=== PATIENT | female | born 1950 | race Caucasian/White ===

== ENCOUNTER → 2017-01-09 | Outpatient (CLI) | payer MEDICARE ==
[~2017-01-09] MED LIST: CIPR250T30 PO
--- NOTE | 2017-01-09 10:07 | KCIC ---
MRI Lumbar Spine without contrast History: Lumbar radiculopathy, intermittent radiculopathy, chronic back pain Technique: Multiplanar, multi sequential noncontrast MR imaging was performed of the lumbar spine. Contrast: None Comparison: None Findings: Lumbar vertebral body stature is preserved. There is mild grade 1 anterior spondylolisthesis at L4-5. There is negligible posterior subluxation L1 relative to L2 and L5 relative to S1. There is moderate to severe degenerative disc disease at L5-S1, mild degenerative disc disease at L2-3 and L4-5, mild disc desiccation L1-2 and L3-4. There is no significant marrow edema. There is mild lumbar dextroscoliosis. Conus terminates at L1. Incidental note is made of retroaortic left renal vein. L1-L2: There is negligible disc osteophyte complex and bulge. Spinal canal and neural foramina are adequate. L2-L3: There is minimal disc osteophyte complex and bulge. There is mild facet hypertrophic change and buckling of the ligamentum flavum. Spinal canal and neural foramina are adequate. L3-L4: There is mild facet degenerative change and buckling of the ligamentum flavum. Neural foramina and spinal canal are adequate. L4-L5: There is moderate facet hypertrophic change and mild buckling of the ligamentum flavum. Neural foramina are adequate. There is very mild narrowing of the far right lateral recess. L5-S1: There is mild facet degenerative change. There is minimal disc osteophyte complex. Spinal canal and neural foramina are adequate. Disc osteophyte complex is near the proximal extraforaminal left L5 nerve root without displacement. Impression: 1. There is grade 1 anterior spondylolisthesis at L4-5 at which there is facet degenerative change, negligible posterior subluxation L1 relative to L2 and L5 relative to S1. 2. There is degenerative disc disease greatest at L5-S1. 3. There is no significant lumbar spinal stenosis, very mild narrowing of the far right lateral recess L4-5. 4. Incidental note is made of retroaortic left renal vein. Electronically signed by: Rivas Wisdom MD (01/09/2017 10:03 AM) [id number]
== END | disposition home or self-care (01) ==
LOC: KCIC MRI 09:16
PROVIDERS: ATTEND Pain Medicine Pain Medicine
DX: M51.17 Intervertebral disc disorders with radiculopathy, lumbosacral region (principal); M43.16 Spondylolisthesis, lumbar region
CPT/HCPCS: 72148

== ENCOUNTER 2017-01-12 17:55 | Emergency (ER) | payer MEDICARE ==
[~2017-01-12] VITALS: Ht 160 cm; Wt 104.3 kg
[2017-01-12] MEDS ORDERED: fentaNYL PF VIAL 100 MCG/2 ML VIAL IV ONE (19:00)
[2017-01-12] MEDS ORDERED: fentaNYL PF VIAL 100 MCG/2 ML VIAL IV PRN (19:00)
[2017-01-12 19:06] LABS: BASO # 0.1 x10^3/uL (0.0-0.2); BASO % 1 % (0-3); EOS % 1 % (0-3); HEMATOCRIT 47.5 % (36.0-47.0); HEMOGLOBIN 16.5 g/dL (12.0-15.5); LYMPH # 2.2 x10^3/uL (1.0-4.8); LYMPH % 23 % (24-48); MEAN CORPUSCULAR HEMOGLOBIN 30 pg (25-35); MEAN CORPUSCULAR HGB CONC 35 g/dL (31-37); MEAN CORPUSCULAR VOLUME 87 fL (79-100); MONO % 7 % (0-9); NEUT % 69 % (31-73); PLATELET COUNT 312 x10^3/uL (140-400); RED BLOOD COUNT 5.46 x10^6/uL (3.50-5.40); RED CELL DISTRIBUTION WIDTH 13.5 % (11.5-14.5); WHITE BLOOD COUNT 9.5 x10^3/uL (4.0-11.0)
[2017-01-12 19:08] LABS: BILIRUBIN,URINE NEGATIVE (NEG); GLUCOSE,URINE 250 mg/dL (NEG); NITRITE,URINE NEGATIVE (NEG); PROTEIN,URINE 100 mg/dL (NEG-TRACE)
[2017-01-12 19:18] LABS: CALCIUM 9.4 mg/dL (8.5-10.1); CREATININE 0.8 mg/dL (0.6-1.0); GFR 71.3; POTASSIUM 3.6 mmol/L (3.5-5.1)
[2017-01-12 19:20] LABS: BACTERIA,URINE MANY /HPF (0-FEW); RBC,URINE >40 /HPF (0-2); WBC,URINE >40 /HPF (0-4)
[2017-01-12 19:21] LABS: SQUAMOUS EPITHELIAL CELL,UR FEW /LPF
[2017-01-12 19:25] LABS: ALBUMIN 3.6 g/dL (3.4-5.0); ALBUMIN/GLOBULIN RATIO 0.9 (1.0-1.7); TOTAL BILIRUBIN 0.6 mg/dL (0.2-1.0); TOTAL PROTEIN 7.4 g/dL (6.4-8.2)
[2017-01-12] MEDS ORDERED: CIPR250T30 PO (20:08)
--- NOTE | 2017-01-12 20:08 | PHYS DOC ---
Past Medical History Past Medical History: Diabetes-Type II, Fibromyalgia, GERD, High Cholesterol, Hypertension, Hypothyroid Past Surgical History: Cholecystectomy Additional Past Surgical Histo: R WRIST, BX ELBOW, R KNEE, HERNIA Alcohol Use: None Drug Use: None Adult General Chief Complaint Chief Complaint: ABDOMINAL PAIN HPI HPI Patient is a 66 year old female who presents ambulatory to the ED complaining of blood in her urine that started yesterday and lower abdominal pain and low back pain that started today. The pain is worse on her right lower abdomen and back. She does not have any pain in her mid back/CVA area. She denies nausea or vomiting. Denies fever or chills. Denies dysuria. She's never had blood in her urine before. She has had a kidney infection a couple of times in the past but not frequently. Denies history of kidney stones. Patient has diabetes, takes metformin. Hypertension, takes triamterene/ hydrochlorothiazide. Takes pravastatin for cholesterol. She has fibromyalgia and takes gabapentin and oxycodone 10 mg 3-4 times daily. She takes it every day. PCP Dr. Ott Review of Systems Review of Systems Constitutional: Denies fever or chills [] HENT: Denies nasal congestion or sore throat [] Respiratory: Denies cough or shortness of breath [] Cardiovascular: Denies chest pain GI: Denies nausea, vomiting, bloody stools or diarrhea [] : As in history of present illness Musculoskeletal: She has chronic fibromyalgia pain but nothing acute today Integument: Denies rash or skin lesions [] Neurologic: Denies headache, focal weakness or sensory changes [] All other systems were reviewed and found to be within normal limits, except as documented in this note. Current Medications Current Medications Current Medications Medications (Trade) Dose Ordered Sig/Vanda Start Time Stop Time Status Last Admin Dose Admin Ciprofloxacin (Cipro) 500 mg 1X ONCE 01/12/17 20:30 01/12/17 20:31 Fentanyl Citrate (Fentanyl 2ml Vial) 100 mcg 1X ONCE 01/12/17 19:00 01/12/17 19:01 DC 01/12/17 18:55 100 MCG Allergies Allergies Allergies Coded Allergies Type Severity Reaction Last Updated Verified No Known Drug Allergies 01/12/17 No Physical Exam Physical Exam Constitutional: Well developed, well nourished, no acute distress, non-toxic appearance. [] HENT: Normocephalic, atraumatic, bilateral external ears normal, oropharynx moist, no oral exudates, nose normal. [] Eyes: PERRLA, EOMI, conjunctiva normal, no discharge. [] Neck: Normal range of motion, no tenderness, supple, no stridor. [] Cardiovascular:Heart rate regular rhythm, no murmur [] Lungs & Thorax: Bilateral breath sounds clear to auscultation [] Abdomen: Bowel sounds normal, soft, no tenderness, no masses, no pulsatile masses. [] Skin: Warm, dry, no erythema, no rash. [] Back: No tenderness, no CVA tenderness. [] Extremities: No tenderness, no cyanosis, no clubbing, ROM intact, no edema. [] Neurologic: Alert and oriented X 3, normal motor function, normal sensory function, no focal deficits noted. [] Psychologic: Affect normal, judgement normal, mood normal. [] Current Patient Data Vital Signs Vital Signs Date Time Temp Pulse Resp B/P (MAP) Pulse Ox O2 Delivery O2 Flow Rate FiO2 01/12/17 18:55 Room Air 01/12/17 18:07 97.5 81 20 184/94 (124) 96 97.5 Lab Values Laboratory Tests Test 01/12/17 18:15 White Blood Count 9.5 x10^3/uL (4.0-11.0) Red Blood Count 5.46 x10^6/uL (3.50-5.40) H Hemoglobin 16.5 g/dL (12.0-15.5) H Hematocrit 47.5 % (36.0-47.0) H Mean Corpuscular Volume 87 fL (79-100) Mean Corpuscular Hemoglobin 30 pg (25-35) Mean Corpuscular Hemoglobin Concent 35 g/dL (31-37) Red Cell Distribution Width 13.5 % (11.5-14.5) Platelet Count 312 x10^3/uL (140-400) Neutrophils (%) (Auto) 69 % (31-73) Lymphocytes (%) (Auto) 23 % (24-48) L Monocytes (%) (Auto) 7 % (0-9) Eosinophils (%) (Auto) 1 % (0-3) Basophils (%) (Auto) 1 % (0-3) Neutrophils # (Auto) 6.6 x10^3uL (1.8-7.7) Lymphocytes # (Auto) 2.2 x10^3/uL (1.0-4.8) Monocytes # (Auto) 0.7 x10^3/uL (0.0-1.1) Eosinophils # (Auto) 0.1 x10^3/uL (0.0-0.7) Basophils # (Auto) 0.1 x10^3/uL (0.0-0.2) Urine Collection Type Unknown Urine Color Red Urine Clarity Cloudy Urine pH 7.0 Urine Specific Kopperl 1.015 Urine Protein 100 mg/dL (NEG-TRACE) Urine Glucose (UA) 250 mg/dL (NEG) Urine Ketones (Stick) Trace mg/dL (NEG) Urine Blood Large (NEG) Urine Nitrite Negative (NEG) Urine Bilirubin Negative (NEG) Urine Urobilinogen Dipstick 1.0 mg/dL (0.2 mg/dL) Urine Leukocyte Esterase Moderate (NEG) Urine RBC >40 /HPF (0-2) Urine WBC >40 /HPF (0-4) Urine Squamous Epithelial Cells Few /LPF Urine Bacteria Many /HPF (0-FEW) Urine Mucus Slight /LPF Sodium Level 135 mmol/L (136-145) L Potassium Level 3.6 mmol/L (3.5-5.1) Chloride Level 97 mmol/L (98-107) L Carbon Dioxide Level 31 mmol/L (21-32) Anion Gap 7 (6-14) Blood Urea Nitrogen 14 mg/dL (7-20) Creatinine 0.8 mg/dL (0.6-1.0) Estimated GFR (Cockcroft-Gault) 71.3 BUN/Creatinine Ratio 18 (6-20) Glucose Level 202 mg/dL (70-99) H Calcium Level 9.4 mg/dL (8.5-10.1) Total Bilirubin 0.6 mg/dL (0.2-1.0) Aspartate Amino Transferase (AST) 16 U/L (15-37) Alanine Aminotransferase (ALT) 20 U/L (14-59) Alkaline Phosphatase 119 U/L (46-116) H Total Protein 7.4 g/dL (6.4-8.2) Albumin 3.6 g/dL (3.4-5.0) Albumin/Globulin Ratio 0.9 (1.0-1.7) L Lipase 62 U/L (73-393) L Laboratory Tests 01/12/17 18:15 Laboratory Tests 01/12/17 18:15 EKG EKG [] Radiology/Procedures Radiology/Procedures [] Course & Med Decision Making Course & Med Decision Making Pertinent Labs and Imaging studies reviewed. (See chart for details) 66-year-old female who is nontoxic, denies fever or chills, afebrile, no nausea or vomiting, complains of blood in her urine. Urinalysis positive for infection. Culture was ordered. Labs are unremarkable for acute findings. I discussed admission versus discharge with the patient. She favors discharge, she is comfortable with discharge instructions to return for vomiting or fever/ chills. We will start her on Cipro. See instructions for plan. [] Dragon Disclaimer Dragon Disclaimer This electronic medical record was generated, in whole or in part, using a voice recognition dictation system. Departure Departure Impression: Primary Impression: UTI (urinary tract infection) Additional Impression: Hematuria due to acute cystitis Disposition: HOME, SELF-CARE Condition: STABLE Referrals: HONEY OTT MD (PCP) Patient Instructions: Urinary Tract Infection, Child Additional Instructions: Rest, fluids, take antibiotics every 12 hours. As we discussed, if you feel worse, if you have chills, vomiting, return to emergency, you may have to be admitted to the hospital. Scripts Ciprofloxacin Hcl (CIPRO) 250 Mg Tablet 1 TAB PO BID, #20 TAB Prov: ARMEN CORNEJO MD 01/12/17 Problem Qualifiers ARMEN CORNEJO MD Jan 12, 2017 20:08
[2017-01-12 20:23] VITALS: BP 160/77
[2017-01-12] MEDS ORDERED: CIPROFLOXACIN HCL 250 MG TABLET. PO ONE (20:30)
--- NOTE | 2017-01-13 07:30 | EKG ---
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
== END 2017-01-12 20:23 | disposition home or self-care (01) ==
LOC: ER 17:55
DX: N30.01 Acute cystitis with hematuria (principal); E03.9 Hypothyroidism, unspecified; E11.9 Type 2 diabetes mellitus without complications; E78.00 Pure hypercholesterolemia, unspecified; I10 Essential (primary) hypertension; K21.9 Gastro-esophageal reflux disease without esophagitis; M79.7 Fibromyalgia; Z90.49 Acquired absence of other specified parts of digestive tract
CPT/HCPCS: 36415; 80053; 81001; 83690; 85025; 87086; 87186; 93005; 96374; 96376; 99285; J3010

== ENCOUNTER 2018-04-28 22:57 | Inpatient (IN) | payer MEDICARE ==
[~2018-04-28] VITALS: Ht 160 cm; Wt 117.0 kg
[2018-04-28] MEDS ORDERED: IV NORMAL SALINE 1000ML BAG 1,000 ML IV ONE (23:15)
[2018-04-28] MEDS ORDERED: MIDAZOLAM HCL/PF 5 MG/5 ML VIAL. NS ONE (23:15)
--- NOTE | 2018-04-28 23:19 | PHYS DOC ---
Past Medical History Past Medical History: Diabetes-Type II, Fibromyalgia, GERD, High Cholesterol, Hypertension, Hypothyroid Past Surgical History: Cholecystectomy Additional Past Surgical Histo: R WRIST, BX ELBOW, R KNEE, HERNIA Alcohol Use: None Drug Use: None Adult General Chief Complaint Chief Complaint: BRADYCARDIA HPI HPI Patient is a 67 year old female who presents for evaluation after a syncopal episodes. Patient states she has not been feeling well over the last few days. states this evening patient was diaphoretic. Patient states she danelle to the bathroom-- was on the toilet felt very dizzy lightheaded and leaned her head against the vanity then does not remember any events after that. states she found the patient between the toilet and the wall. called 911 and EMS found patient to have a heart rate in the 20-30s. Rhythm strip performed in the field questionable third-degree heart block. Patient was externally paced via EMS. Review of Systems Review of Systems Constitutional: Denies fever or chills [] Eyes: Denies change in visual acuity, redness, or eye pain [] HENT: Denies nasal congestion or sore throat [] Respiratory: Denies cough or shortness of breath [] Cardiovascular: No additional information not addressed in HPI [] GI: Denies abdominal pain, nausea, vomiting, bloody stools or diarrhea [] : Denies dysuria or hematuria [] Musculoskeletal: Denies back pain or joint pain [] Integument: Denies rash or skin lesions [] Neurologic: Denies headache, focal weakness or sensory changes [] Endocrine: Denies polyuria or polydipsia [] All other systems were reviewed and found to be within normal limits, except as documented in this note. Current Medications Current Medications Current Medications Medications (Trade) Dose Ordered Sig/Vanda Start Time Stop Time Status Last Admin Dose Admin Atropine Sulfate (ATROPINE 0.5mg SYRINGE) 0.5 mg 1X ONCE 04/28/18 23:45 04/28/18 23:46 DC Dopamine HCl/ Dextrose 250 ml @ 0 mls/hr 1X ONCE 04/28/18 23:45 04/28/18 23:46 DC 04/29/18 00:00 9 MLS/HR Epinephrine HCl 4 mg/Sodium Chloride 254 ml @ 0 mls/hr CONT PRN 04/28/18 23:45 04/28/18 23:45 DC Fentanyl Citrate (Fentanyl 2ml Vial) 25 mcg 1X ONCE 04/29/18 01:00 04/29/18 01:01 DC Midazolam HCl (Versed) 2 mg 1X ONCE 04/28/18 23:15 04/28/18 23:16 DC 04/28/18 23:16 2 MG Morphine Sulfate (Morphine Sulfate) 2 mg PRN Q2HR PRN 04/29/18 00:15 04/30/18 00:14 04/29/18 00:55 2 MG Ondansetron HCl (Zofran) 4 mg PRN Q8HRS PRN 04/29/18 00:15 04/30/18 00:14 Sodium Chloride 1,000 ml @ 1,000 mls/hr 1X ONCE 04/28/18 23:15 04/29/18 00:14 DC Allergies Allergies Allergies Coded Allergies Type Severity Reaction Last Updated Verified No Known Drug Allergies 01/12/17 No Physical Exam Physical Exam Constitutional: Well developed, well nourished, no acute distress, non-toxic appearance. [] HENT: Normocephalic, atraumatic, bilateral external ears normal, oropharynx moist, no oral exudates, nose normal. [] Eyes: PERRLA, EOMI, conjunctiva normal, no discharge. [] Neck: Normal range of motion, no tenderness, supple, no stridor. [] Cardiovascular:Heart rate regular rhythm, no murmur [] Lungs & Thorax: Bilateral breath sounds clear to auscultation [] Abdomen: Bowel sounds normal, soft, no tenderness, no masses, no pulsatile masses. [] Skin: Warm, dry, no erythema, no rash. [] Back: No tenderness, no CVA tenderness. [] Extremities: No tenderness, no cyanosis, no clubbing, ROM intact, no edema. [] Neurologic: Alert and oriented X 3, normal motor function, normal sensory function, no focal deficits noted. [] Psychologic: Affect normal, judgement normal, mood normal. [] Current Patient Data Vital Signs Vital Signs Date Time Temp Pulse Resp B/P (MAP) Pulse Ox O2 Delivery O2 Flow Rate FiO2 04/28/18 23:57 70 20 180/88 (118) 93 Nasal Cannula 5.0 04/28/18 22:57 97.9 97.9 Lab Values Laboratory Tests Test 04/28/18 23:20 04/28/18 23:27 White Blood Count 10.6 x10^3/uL (4.0-11.0) Red Blood Count 5.15 x10^6/uL (3.50-5.40) Hemoglobin 15.3 g/dL (12.0-15.5) Hematocrit 45.4 % (36.0-47.0) Mean Corpuscular Volume 88 fL (79-100) Mean Corpuscular Hemoglobin 30 pg (25-35) Mean Corpuscular Hemoglobin Concent 34 g/dL (31-37) Red Cell Distribution Width 14.1 % (11.5-14.5) Platelet Count 355 x10^3/uL (140-400) Neutrophils (%) (Auto) 66 % (31-73) Lymphocytes (%) (Auto) 25 % (24-48) Monocytes (%) (Auto) 7 % (0-9) Eosinophils (%) (Auto) 1 % (0-3) Basophils (%) (Auto) 1 % (0-3) Neutrophils # (Auto) 7.0 x10^3uL (1.8-7.7) Lymphocytes # (Auto) 2.7 x10^3/uL (1.0-4.8) Monocytes # (Auto) 0.8 x10^3/uL (0.0-1.1) Eosinophils # (Auto) 0.1 x10^3/uL (0.0-0.7) Basophils # (Auto) 0.1 x10^3/uL (0.0-0.2) Sodium Level 144 mmol/L (136-145) Potassium Level 3.6 mmol/L (3.5-5.1) Chloride Level 100 mmol/L (98-107) Carbon Dioxide Level 32 mmol/L (21-32) Anion Gap 12 (6-14) 17 mmol/L (6-14) H Blood Urea Nitrogen 21 mg/dL (7-20) H Creatinine 1.2 mg/dL (0.6-1.0) H Estimated GFR (Cockcroft-Gault) 44.5 BUN/Creatinine Ratio 18 (6-20) Glucose Level 240 mg/dL (70-99) H 223 mg/dL (70-99) H Calcium Level 9.4 mg/dL (8.5-10.1) Magnesium Level 1.9 mg/dL (1.8-2.4) Total Bilirubin 0.5 mg/dL (0.2-1.0) Aspartate Amino Transferase (AST) 22 U/L (15-37) Alanine Aminotransferase (ALT) 19 U/L (14-59) Alkaline Phosphatase 92 U/L (46-116) Troponin I Quantitative 0.046 ng/mL (0.000-0.055) NG-Apo-I-Type Natriuretic Peptide 780 pg/mL (0-124) H Total Protein 6.8 g/dL (6.4-8.2) Albumin 3.2 g/dL (3.4-5.0) L Albumin/Globulin Ratio 0.9 (1.0-1.7) L POC Hemoglobin 15.0 g/dL (12-15) POC Hematocrit 44 % (36-40) H POC Sodium 140 mmol/L (135-145) POC Potassium 3.6 mmol/L (3.5-5.0) POC Chloride 96 mmol/L (98-110) L POC Total CO2 31 mmol/L (23-32) POC Blood Urea Nitrogen 22 mg/dL (8-26) POC Creatinine 1.0 mg/dL (0.5-1.4) POC Ionized Calcium (Acacia) 1.14 mmol/L (1.13-1.32) Laboratory Tests 04/28/18 23:20 Laboratory Tests 04/28/18 23:20 04/28/18 23:27 EKG EKG [] Interpretation Time: Bradycardia 2304 Heart rate 41 sinus bradycardia with PVCs No STEMI 2302 Heart rate 33 Degree heart block Radiology/Procedures Radiology/Procedures [] Impressions: Chest Xray Wet Read Cardiomegaly Vascular congestion Course & Med Decision Making Course & Med Decision Making Pertinent Labs and Imaging studies reviewed. (See chart for details) []She was evaluated for chief complaint. Workup consisted of laboratory analysis radiologic imaging and EKG. Results reviewed and discussed with patient and family. Patient arrived with external pacers in place--- difficulty obtaining capture- Rate set at 70 bpm and Milliamps at 110. Patient was treated with atropine 0.5 2 with very little effect. Discussed patient with cardiology. Patient was started on a dopamine drip. Post dopamine--- Heart rate improved-- the milliamps decreased to 40--- heart rate in the 70's. Patient was admitted to ICU. Critical Care Time 35minutes Time spending reviewing results, discussing with consultants, Jatin Disclaimer Dragon Disclaimer This electronic medical record was generated, in whole or in part, using a voice recognition dictation system. Departure Departure Impression: Primary Impression: Bradycardia Additional Impressions: Syncope Third degree heart block Disposition: ADMITTED INPATIENT Admitting Physician: Other (Masoud Jackson) Condition: CRITICAL Referrals: HONEY SOLOMON MD (PCP) Problem Qualifiers TRINY KRISHNAMURTHY DO Apr 28, 2018 23:19
[2018-04-28 23:32] LABS: ION CA ISTAT 1.14 mmol/L (1.13-1.32); POTASSIUM ISTAT 3.6 mmol/L (3.5-5.0)
[2018-04-28 23:36] LABS: BASO # 0.1 x10^3/uL (0.0-0.2); BASO % 1 % (0-3); EOS # 0.1 x10^3/uL (0.0-0.7); EOS % 1 % (0-3); HEMATOCRIT 45.4 % (36.0-47.0); HEMOGLOBIN 15.3 g/dL (12.0-15.5); LYMPH # 2.7 x10^3/uL (1.0-4.8); LYMPH % 25 % (24-48); MEAN CORPUSCULAR HEMOGLOBIN 30 pg (25-35); MEAN CORPUSCULAR HGB CONC 34 g/dL (31-37); MEAN CORPUSCULAR VOLUME 88 fL (79-100); MONO # 0.8 x10^3/uL (0.0-1.1); MONO % 7 % (0-9); NEUT % 66 % (31-73); PLATELET COUNT 355 x10^3/uL (140-400); RED BLOOD COUNT 5.15 x10^6/uL (3.50-5.40); RED CELL DISTRIBUTION WIDTH 14.1 % (11.5-14.5); WHITE BLOOD COUNT 10.6 x10^3/uL (4.0-11.0)
[2018-04-28 23:44] LABS: CALCIUM 9.4 mg/dL (8.5-10.1); CREATININE 1.2 mg/dL (0.6-1.0); GFR 44.5; POTASSIUM 3.6 mmol/L (3.5-5.1)
[2018-04-28] MEDS ORDERED: ATROPINE 0.5 MG/5 ML DISP.SYRINGE. IV ONE ×2 (23:45)
[2018-04-28 23:50] LABS: ALBUMIN 3.2 g/dL (3.4-5.0); ALBUMIN/GLOBULIN RATIO 0.9 (1.0-1.7); MAGNESIUM 1.9 mg/dL (1.8-2.4); TOTAL BILIRUBIN 0.5 mg/dL (0.2-1.0); TOTAL PROTEIN 6.8 g/dL (6.4-8.2)
[2018-04-29] VITALS (25 sets, daily range): BP systolic 83–233; BP diastolic 43–105
[2018-04-29] MEDS ORDERED: ONDANSETRON PF 4 MG/2 ML VIAL. IV PRN (00:15)
--- NOTE | 2018-04-29 00:46 | RAD ---
Indication:palpitations TECHNIQUE:Portable AP chest X-ray COMPARISON:05/18/2015 FINDINGS: Bloating artifact is seen limiting optimal evaluation. Heart is moderately enlarged in size. Bilateral prominent bronchial markings are seen. No focal consolidation. Visualized bony thorax within normal limits. IMPRESSION: Limited exam due to blurring artifact. Mild cardiomegaly with prominent bilateral bronchovascular markings may be secondary to vascular congestion/peribronchial edema or bronchitis. Electronically signed by: Miles Espinoza DO (04/29/2018 12:43 AM) [facility]
[2018-04-29] MEDS: MORPHINE SULFATE 4 MG/ML VIAL. IV PRN ×3 (00:55→11:30)
[2018-04-29] MEDS ORDERED: fentaNYL PF VIAL 100 MCG/2 ML VIAL IV ONE (01:00)
[2018-04-29] MEDS ORDERED: MIDAZOLAM HCL/PF 2 MG/2 ML VIAL. IV PRN (04:15)
[2018-04-29] MEDS ORDERED: OXYC-411 PO (06:02)
[2018-04-29] MEDS ORDERED: TRIA1TAB3 PO (06:02)
[2018-04-29] MEDS ORDERED: PRAV40TA2 PO (06:02)
[2018-04-29] MEDS ORDERED: OMEP20CA10 PO (06:02)
[2018-04-29] MEDS ORDERED: METF10007 PO (06:02)
[2018-04-29] MEDS ORDERED: SERT100T PO (06:02)
[2018-04-29] MEDS ORDERED: ROPI0.5T PO (06:03)
[2018-04-29] MEDS ORDERED: PREG150C PO (06:03)
[2018-04-29] MEDS ORDERED: CYAN100072 PO (06:03)
[2018-04-29] MEDS ORDERED: ERGO500027 PO (06:03)
[2018-04-29] MEDS ORDERED: BIOT10005 PO (06:03)
[2018-04-29] MEDS ORDERED: LEVO25TA4 PO (06:03)
--- NOTE | 2018-04-29 06:17 | NUR ---
Patient admitted to room 106 from ER at 0145. Patient moved from cart to bed. Monitor on. Patient being externally paced per the lifepack at a rate of 70 with the MA at 40. The patient's heart rate will not display on the bedside monitor or on the lifepack but the heart beats displayed on the lifepack have a pacer spike in front of every QRS complex. Patient's pulse is 70 and regular. Dopamine gtt infusing at 2mcg/kg/min. Patient c/o pain related to the shocking received from the lifepack. Fentanyl IV given per PRN order. Dr. Jackson called and an order was received for versed IV PRN at 0408. Patient's call light is within reach. is at bedside. Will continue to monitor.
--- NOTE | 2018-04-29 08:46 | PDOC2 ---
CHAUNCEY ARMSTRONG ENTERPRISE SYSTEMS MANAGER 04/29/18 0846: CARDIAC CONSULT DATE OF CONSULT Date of Consult DATE: 04/29/18 TIME: 08:40 REASON FOR CONSULT Reason for Consult: Bradycardia REFERRING PHYSICIAN Referring Physician: Dr. Kramer SOURCE Source: Chart review, Patient HISTORY OF PRESENT ILLNESS HISTORY OF PRESENT ILLNESS This is a 67 yo female, with a history of HTN, HLP, DM,II, and hypothyroidism, who presented secondary to syncopal episode. Patient reports not feeling well for the last couple of days. Has been tired, weak. Some mild dyspnea with exertion. Was using the bathroom last night. Sat down on the stool and felt very dizzy. Put head down on the sink on in front of her and subsequently passed out. found her down on the floor between the toilet and the wall. Does not believe she hit her head. EMS was called and found patient in complete heart block with a heart rate in the 20-30s. External pacing was initiated by EMS. Patient was started on Dopamine in ED with mild improvement in HR, but patient has required pacing overnight. Patient denies any recent chest pain, palpitations, LY, orthopnea, or PND. Med list reviewed, no AV danny blocking agents. PAST MEDICAL HISTORY Cardiovascular: HTN, Hyperlipidemia Pulmonary: Pneumonia CENTRAL NERVOUS SYSTEM: Periperal neuropathy, TIA GI: GERD Heme/Onc: No pertinent hx Hepatobiliary: No pertinent hx Psych: Anxiety, Depression Musculoskeletal: Osteoarthritis Rheumatologic: No pertinent hx Infectious disease: No pertinent hx ENT: No pertinent hx Renal/: UTI Endocrine: Diabetes, Hypothyroidism Dermatology: No pertinent hx PAST SURGICAL HISTORY Past Surgical History: Cholecystectomy, Hernia Repair, Other (right knee surgery) FAMILY HISTORY Family History: Diabetes, Hypertension SOCIAL HISTORY Smoke: No ALCOHOL: none Drugs: None Lives: with Family CURRENT MEDICATIONS CURRENT MEDICATIONS Current Medications Medications (Trade) Dose Ordered Sig/Vanda Route PRN Reason Start Time Stop Time Status Last Admin Dose Admin Sodium Chloride 1,000 ml @ 1,000 mls/hr 1X ONCE IV 04/28/18 23:15 04/29/18 00:14 DC 04/29/18 01:30 Midazolam HCl (Versed) 2 mg 1X ONCE NS 04/28/18 23:15 04/28/18 23:16 DC 04/28/18 23:16 Atropine Sulfate (ATROPINE 0.5mg SYRINGE) 0.5 mg 1X ONCE IV 04/28/18 23:45 04/28/18 23:46 DC 04/28/18 23:28 Atropine Sulfate (ATROPINE 0.5mg SYRINGE) 0.5 mg 1X ONCE IV 04/28/18 23:45 04/28/18 23:46 DC 04/28/18 23:32 Dopamine HCl/ Dextrose 250 ml @ 0 mls/hr 1X ONCE IV 04/28/18 23:45 04/28/18 23:46 DC 04/29/18 00:00 Morphine Sulfate (Morphine Sulfate) 2 mg PRN Q2HR PRN IV PAIN 04/29/18 00:15 04/30/18 00:14 04/29/18 05:43 Fentanyl Citrate (Fentanyl 2ml Vial) 25 mcg 1X ONCE IV 04/29/18 01:00 04/29/18 01:01 DC 04/29/18 02:43 Midazolam HCl (Versed) 2 mg PRN Q2HR PRN IV ANXIETY / AGITATION 04/29/18 04:15 04/29/18 04:35 ALLERGIES ALLERGIES: Coded Allergies: No Known Drug Allergies (Unverified , 01/12/17) ROS Review of System 14 point ROS conducted with pertinent positives noted above in HPI. PHYSICAL EXAM General: Alert, Oriented X3, Cooperative, No acute distress HEENT: Atraumatic, Mucous membr. moist/pink Lungs: Clear to auscultation Heart: Normal S1, Normal S2, Other (paced with underlying CHB) Abdomen: Soft, Other (obese ) Extremities: Other (trace bilateral LE edema ) Neuro: Normal speech, Sensation intact Psych/Mental Status: Mental status NL, Mood NL MUSCULOSKELETAL: Osteoarthritic changes both hands VITALS VITALS Vital Signs Date Time Temp Pulse Resp B/P (MAP) Pulse Ox O2 Delivery O2 Flow Rate FiO2 04/29/18 06:15 16 70 Nasal Cannula 3.0 04/29/18 06:00 70 136/63 (87) 04/29/18 02:00 97.8 97.8 LABS Lab: Laboratory Tests Test 04/28/18 23:20 04/28/18 23:27 04/29/18 02:45 White Blood Count 10.6 x10^3/uL (4.0-11.0) Red Blood Count 5.15 x10^6/uL (3.50-5.40) Hemoglobin 15.3 g/dL (12.0-15.5) Hematocrit 45.4 % (36.0-47.0) Mean Corpuscular Volume 88 fL (79-100) Mean Corpuscular Hemoglobin 30 pg (25-35) Mean Corpuscular Hemoglobin Concent 34 g/dL (31-37) Red Cell Distribution Width 14.1 % (11.5-14.5) Platelet Count 355 x10^3/uL (140-400) Neutrophils (%) (Auto) 66 % (31-73) Lymphocytes (%) (Auto) 25 % (24-48) Monocytes (%) (Auto) 7 % (0-9) Eosinophils (%) (Auto) 1 % (0-3) Basophils (%) (Auto) 1 % (0-3) Neutrophils # (Auto) 7.0 x10^3uL (1.8-7.7) Lymphocytes # (Auto) 2.7 x10^3/uL (1.0-4.8) Monocytes # (Auto) 0.8 x10^3/uL (0.0-1.1) Eosinophils # (Auto) 0.1 x10^3/uL (0.0-0.7) Basophils # (Auto) 0.1 x10^3/uL (0.0-0.2) Sodium Level 144 mmol/L (136-145) Potassium Level 3.6 mmol/L (3.5-5.1) Chloride Level 100 mmol/L (98-107) Carbon Dioxide Level 32 mmol/L (21-32) Anion Gap 12 (6-14) 17 mmol/L (6-14) Blood Urea Nitrogen 21 mg/dL (7-20) Creatinine 1.2 mg/dL (0.6-1.0) Estimated GFR (Cockcroft-Gault) 44.5 BUN/Creatinine Ratio 18 (6-20) Glucose Level 240 mg/dL (70-99) 223 mg/dL (70-99) Calcium Level 9.4 mg/dL (8.5-10.1) Magnesium Level 1.9 mg/dL (1.8-2.4) Total Bilirubin 0.5 mg/dL (0.2-1.0) Aspartate Amino Transf (AST/SGOT) 22 U/L (15-37) Alanine Aminotransferase (ALT/SGPT) 19 U/L (14-59) Alkaline Phosphatase 92 U/L (46-116) Troponin I Quantitative 0.046 ng/mL (0.000-0.055) 0.977 ng/mL (0.000-0.055) ID-Lkk-Q-Type Natriuretic Peptide 780 pg/mL (0-124) Total Protein 6.8 g/dL (6.4-8.2) Albumin 3.2 g/dL (3.4-5.0) Albumin/Globulin Ratio 0.9 (1.0-1.7) Bedside Hemoglobin 15.0 g/dL (12-15) Bedside Hematocrit 44 % (36-40) Bedside Sodium 140 mmol/L (135-145) Bedside Potassium 3.6 mmol/L (3.5-5.0) Bedside Chloride 96 mmol/L (98-110) Bedside Total CO2 31 mmol/L (23-32) Bedside Blood Urea Nitrogen 22 mg/dL (8-26) Bedside Creatinine 1.0 mg/dL (0.5-1.4) Bedside Ionized Calcium (Acacia) 1.14 mmol/L (1.13-1.32) ASSESSMENT/PLAN ASSESSMENT/PLAN 1. Syncope; secondary to below. 2. SSS; complete heart block; on Dopamine. requiring external pacing 3. Accelerated hypertension; better controlled this am 4. Hyperlipidemia; statin 5. Diabetes, II 6. Hypothyroidism Recommendations Check TSH, lipids. PT/INR now. Check echo to assess LV systolic function Pacemaker implantation for SSS. R/b/a discussed with patient and and they are agreeable. KASSIE ROBERTSON MD 04/29/18 1148: CARDIAC CONSULT ASSESSMENT/PLAN ASSESSMENT/PLAN Patient seen and examined. Agree with PROJ ENGINEER's assessment and plan. Patient with complete heart block and severe symptomatic bradycardia requiring dopamine infusion and external pacing We will proceed with urgent permanent pacemaker implantation this morning. Risks and benefits were explained. Check 2-D echo to assess LV systolic function. Blood pressure better controlled since admission. We'll consider ischemic evaluation as an outpatient. Thank you for your consultation. CHAUNCEY ARMSTRONG APRN Apr 29, 2018 08:46 KASSIE ROBERTSON MD Apr 29, 2018 11:48
--- NOTE | 2018-04-29 09:19 | NUR ---
IP: Pt has a hx of ESBL in urine in 2011 with only one documented negative. Pt to be in contact precautions until a second urine if verified. MRSA screen also pending.
[2018-04-29] MEDS ORDERED: MIDAZOLAM HCL/PF 5 MG/5 ML VIAL. ONE ×2 (09:37→10:16)
[2018-04-29] MEDS ORDERED: fentaNYL PF VIAL 250 MCG/5 ML VIAL ONE ×2 (09:38→10:16)
[2018-04-29] MEDS ORDERED: LIDOCAINE 2%/EPI 1:100,000 20 ML VIAL. ONE (09:54)
[2018-04-29 09:59] LABS: CHOLESTEROL/HDL RATIO 4.5
[2018-04-29] MEDS ORDERED: MIDAZOLAM HCL/PF 5 MG/5 ML VIAL. IV ONE (10:00)
[2018-04-29] MEDS ORDERED: fentaNYL PF VIAL 250 MCG/5 ML VIAL IV ONE (10:00)
[2018-04-29] MEDS ORDERED: LIDOCAINE 2%/EPI 1:100,000 20 ML VIAL. IJ ONE (10:00)
--- NOTE | 2018-04-29 10:12 | NUR ---
RN called Dr. Benitez to notify him of patient condition-- still 100% externally paced, Dopmaine gtt at 2mcg/kg/min. Order received to obtain consents for PPM placement. Patient taken to Flanging Operator at approximately 0915. Patient's at bedside, taken to tag and label cutter waiting room.
[2018-04-29] MEDS ORDERED: BACITRACIN 50,000 UNIT in IV NORMAL SALINE 250ML 250 ML IRR ONE (10:15)
--- NOTE | 2018-04-29 10:52 | PDOC1 ---
History and Physical Date of Admission Date of Admission DATE: 04/29/18 TIME: 10:52 Identification/Chief Complaint Chief Complaint states he found the patient between the toilet and the wall. called 911 and EMS found patient to have a heart rate in the 20-30s. Rhythm strip, third-degree heart block. Patient was externally paced via EMS. Past Medical History Past Medical History Past Medical History Past Medical History Past Medical History: Diabetes-Type II, Fibromyalgia, GERD, High Cholesterol, Hypertension, Hypothyroid Past Surgical History: Cholecystectomy Additional Past Surgical Histo: R WRIST, BX ELBOW, R KNEE, HERNIA Alcohol Use: None Drug Use: None family hx obesity Cardiovascular: HTN, Hyperlipidemia Pulmonary: Pneumonia CENTRAL NERVOUS SYSTEM: Periperal neuropathy, TIA GI: GERD Heme/Onc: No pertinent hx Hepatobiliary: No pertinent hx Psych: Anxiety, Depression Musculoskeletal: Osteoarthritis Rheumatologic: No pertinent hx Infectious disease: No pertinent hx ENT: No pertinent hx Renal/: UTI Endocrine: Diabetes, Hypothyroidism Dermatology: No pertinent hx Past Surgical History Past Surgical History: Cholecystectomy, Hernia Repair, Other (right knee surgery) Family History Family History: Diabetes, Hypertension Social History Smoke: No ALCOHOL: none Drugs: None Current Medications Current Medications Current Medications Sodium Chloride 1,000 ml @ 1,000 mls/hr 1X ONCE IV Last administered on at 01:30; Start 04/28/18 at 23:15; Stop 04/29/18 at 00:14; Status DC Midazolam HCl (Versed) 2 mg 1X ONCE NS Last administered on 04/28/18at 23:16; Start 04/28/18 at 23:15; Stop 04/28/18 at 23:16; Status DC Epinephrine HCl 4 mg/Sodium Chloride 254 ml @ 0 mls/hr CONT PRN IV SEE I/O RECORD; Start 04/28/18 at 23:45; Stop 04/28/18 at 23:45; Status DC Atropine Sulfate (ATROPINE 0.5mg SYRINGE) 0.5 mg 1X ONCE IV Last administered on 04/28/18at 23:28; Start 04/28/18 at 23:45; Stop 04/28/18 at 23:46; Status DC Atropine Sulfate (ATROPINE 0.5mg SYRINGE) 0.5 mg 1X ONCE IV Last administered on 04/28/18at 23:32; Start 04/28/18 at 23:45; Stop 04/28/18 at 23:46; Status DC Dopamine HCl/ Dextrose 250 ml @ 0 mls/hr 1X ONCE IV Last administered on at 00:00; Start 04/28/18 at 23:45; Stop 04/28/18 at 23:46; Status DC Ondansetron HCl (Zofran) 4 mg PRN Q8HRS PRN IV NAUSEA/VOMITING; Start 04/29/18 at 00:15; Stop 04/30/18 at 00:14 Morphine Sulfate (Morphine Sulfate) 2 mg PRN Q2HR PRN IV PAIN Last administered on 04/29/18at 05:43; Start 04/29/18 at 00:15; Stop 04/30/18 at 00:14 Fentanyl Citrate (Fentanyl 2ml Vial) 25 mcg 1X ONCE IV Last administered on 02/05at 02:43; Start 04/29/18 at 01:00; Stop 04/29/18 at 01:01; Status DC Midazolam HCl (Versed) 2 mg PRN Q2HR PRN IV ANXIETY / AGITATION Last administered on 04/29/18at 04:35; Start 04/29/18 at 04:15 Midazolam HCl (Versed) 5 mg STK-MED ONCE .ROUTE ; Start 04/29/18 at 09:37; Stop 04/29/18 at 09:38; Status DC Fentanyl Citrate (Fentanyl 5ml Vial) 250 mcg STK-MED ONCE .ROUTE ; Start at 09:38; Stop 04/29/18 at 09:39; Status DC Lidocaine/ Epinephrine (LIDOCAINE 2%-EPI 1:100,000 multi-dose) 20 ml STK-MED ONCE .ROUTE ; Start 04/29/18 at 09:54; Stop 04/29/18 at 09:55; Status DC Cefazolin Sodium/ Dextrose 50 ml @ As Directed STK-MED ONCE IV ; Start 04/29/18 at 09:54; Stop 04/29/18 at 09:55; Status DC Heparin Sodium/ Sodium Chloride (HEPARIN for ARTERIAL LINE FLUSH) 1,000 unit 1X ONCE IART Last administered on 04/29/18at 10:00; Start 04/29/18 at 10:00; Stop 04/29/18 at 10:11; Status DC Midazolam HCl (Versed) 5 mg 1X ONCE IV Last administered on 04/29/18at 10:00; Start 04/29/18 at 10:00; Stop 04/29/18 at 10:11; Status DC Fentanyl Citrate (Fentanyl 5ml Vial) 250 mcg 1X ONCE IV Last administered on at 10:00; Start 04/29/18 at 10:00; Stop 04/29/18 at 10:11; Status DC Lidocaine/ Epinephrine (LIDOCAINE 2%-EPI 1:100,000 multi-dose) 20 ml 1X ONCE IJ Last administered on 04/29/18at 10:00; Start 04/29/18 at 10:00; Stop at 10:11; Status DC Bacitracin 74952 unit/Sodium Chloride 250 ml @ 0 mls/hr 1X ONCE IRR Last administered on 04/29/18at 10:15; Start 04/29/18 at 10:15; Stop 04/29/18 at 10:16 ; Status DC Cefazolin Sodium/ Dextrose 50 ml @ 100 mls/hr 1X ONCE IV Last administered on 04/29/18at 10:00; Start 04/29/18 at 10:00; Stop 04/29/18 at 10:29; Status DC Midazolam HCl (Versed) 5 mg STK-MED ONCE .ROUTE ; Start 04/29/18 at 10:16; Stop 04/29/18 at 10:17; Status DC Fentanyl Citrate (Fentanyl 5ml Vial) 250 mcg STK-MED ONCE .ROUTE ; Start at 10:16; Stop 04/29/18 at 10:17; Status DC Active Scripts Active Reported Requip (Ropinirole Hcl) 0.5 Mg Tablet 1 Tab PO QHS Lyrica (Pregabalin) 150 Mg Capsule 1 Cap PO BID Biotin 10,000 Mcg Capsule 10,000 Mcg PO DAILY B-12 (Cyanocobalamin (Vitamin B-12)) 1,000 Mcg Tablet 1,000 Mcg PO DAILY Levothyroxine Sodium 25 Mcg Tablet 1 Tab PO DAILY Vitamin D2 (Ergocalciferol (Vitamin D2)) 50,000 Unit Capsule 1 Cap PO WEEKLY Omeprazole 20 Mg Capsule.dr 20 Mg PO BID Triamterene-Hctz 37.5-25 Mg Tb (Triamterene/Hydrochlorothiazid) 1 Each Tablet 1 Tab PO DAILY Metformin Hcl 1,000 Mg Tablet 1,000 Mg PO BIDWMEALS Pravastatin Sodium 40 Mg Tablet 1 Tab PO DAILY Zoloft (Sertraline Hcl) 100 Mg Tablet 1 Tab PO DAILY Oxycodone-Acetaminophen 10-325 (Oxycodone Hcl/Acetaminophen) 1 Each Tablet 1 Each PO PRN Q8HRS PRN Allergies Allergies: Coded Allergies: No Known Drug Allergies (Unverified , 01/12/17) ROS Review of System Review of Systems Review of Systems Constitutional: Denies fever or chills [], is weak x 3 days Eyes: Denies change in visual acuity, redness, or eye pain [] HENT: Denies nasal congestion or sore throat [] Respiratory: Denies cough or shortness of breath [] Cardiovascular: No additional information not addressed in HPI [] GI: Denies abdominal pain, nausea, vomiting, bloody stools or diarrhea [] : Denies dysuria or hematuria [] Musculoskeletal: Denies back pain or joint pain [] Integument: Denies rash or skin lesions [] Neurologic: Denies headache, focal weakness or sensory changes [] Endocrine: Denies polyuria or polydipsia [] 14 pt systems were reviewed and found to be within normal limits, except as documented PSYCHOLOGICAL ROS: No: Anxiety, Behavioral Disorder, Concentration difficultie , Decreased libido, Depression, Disorientation, Hallucinations, Hostility, Irritablity, Memory difficulties, Mood Swings, Obsessive thoughts, Physical abuse, Sexual abuse, Sleep disturbances, Suicidal ideation, Other Musculoskeletal: Yes Gait Disturbance Physical Exam Physical Exam Physical Exam Physical Exam Constitutional: Well developed, well nourished, no acute distress, non-toxic appearance. [] HENT: Normocephalic, atraumatic, bilateral external ears normal, oropharynx moist, no oral exudates, nose normal. [] Eyes: PERRLA, EOMI, conjunctiva normal, no discharge. [] Neck: Normal range of motion, no tenderness, supple, no stridor. [] Cardiovascular:Heart rate regular rhythm, no murmur [] Lungs & Thorax: Bilateral breath sounds clear to auscultation [] Abdomen: Bowel sounds normal, soft, no tenderness, no masses, no pulsatile masses. [] Skin: Warm, dry, no erythema, no rash. [] Back: No tenderness, no CVA tenderness. [] Extremities: No tenderness, no cyanosis, no clubbing, ROM intact, no edema. [] Neurologic: Alert and oriented X 3, normal motor function, normal sensory function, no focal deficits noted. [] Psychologic: Affect normal, judgement normal, mood normal. [] General: Alert, Oriented X3, Cooperative, No acute distress HEENT: PERRLA Heart: S1S2, RRR Breasts: Not examined Abdomen: Normal bowel sounds, Soft Rectal Exam: not examined Extremities: No cyanosis Neuro: Normal speech, Cranial nerves 3-12 NL Psych/Mental Status: Mental status NL, Mood NL Vitals Vitals Vital Signs Date Time Temp Pulse Resp B/P (MAP) Pulse Ox O2 Delivery O2 Flow Rate FiO2 04/29/18 10:00 14 96 Nasal Cannula 2.0 04/29/18 09:00 70 122/67 (85) 04/29/18 07:00 98.5 98.5 Labs Labs Laboratory Tests Test 04/28/18 23:20 04/28/18 23:27 04/29/18 02:45 04/29/18 09:20 White Blood Count 10.6 x10^3/uL (4.0-11.0) Red Blood Count 5.15 x10^6/uL (3.50-5.40) Hemoglobin 15.3 g/dL (12.0-15.5) Hematocrit 45.4 % (36.0-47.0) Mean Corpuscular Volume 88 fL (79-100) Mean Corpuscular Hemoglobin 30 pg (25-35) Mean Corpuscular Hemoglobin Concent 34 g/dL (31-37) Red Cell Distribution Width 14.1 % (11.5-14.5) Platelet Count 355 x10^3/uL (140-400) Neutrophils (%) (Auto) 66 % (31-73) Lymphocytes (%) (Auto) 25 % (24-48) Monocytes (%) (Auto) 7 % (0-9) Eosinophils (%) (Auto) 1 % (0-3) Basophils (%) (Auto) 1 % (0-3) Neutrophils # (Auto) 7.0 x10^3uL (1.8-7.7) Lymphocytes # (Auto) 2.7 x10^3/uL (1.0-4.8) Monocytes # (Auto) 0.8 x10^3/uL (0.0-1.1) Eosinophils # (Auto) 0.1 x10^3/uL (0.0-0.7) Basophils # (Auto) 0.1 x10^3/uL (0.0-0.2) Sodium Level 144 mmol/L (136-145) Potassium Level 3.6 mmol/L (3.5-5.1) Chloride Level 100 mmol/L (98-107) Carbon Dioxide Level 32 mmol/L (21-32) Anion Gap 12 (6-14) 17 mmol/L (6-14) Blood Urea Nitrogen 21 mg/dL (7-20) Creatinine 1.2 mg/dL (0.6-1.0) Estimated GFR (Cockcroft-Gault) 44.5 BUN/Creatinine Ratio 18 (6-20) Glucose Level 240 mg/dL (70-99) 223 mg/dL (70-99) Calcium Level 9.4 mg/dL (8.5-10.1) Magnesium Level 1.9 mg/dL (1.8-2.4) Total Bilirubin 0.5 mg/dL (0.2-1.0) Aspartate Amino Transf (AST/SGOT) 22 U/L (15-37) Alanine Aminotransferase (ALT/SGPT) 19 U/L (14-59) Alkaline Phosphatase 92 U/L (46-116) Troponin I Quantitative 0.046 ng/mL (0.000-0.055) 0.977 ng/mL (0.000-0.055) LD-Uix-X-Type Natriuretic Peptide 780 pg/mL (0-124) Total Protein 6.8 g/dL (6.4-8.2) Albumin 3.2 g/dL (3.4-5.0) Albumin/Globulin Ratio 0.9 (1.0-1.7) Bedside Hemoglobin 15.0 g/dL (12-15) Bedside Hematocrit 44 % (36-40) Bedside Sodium 140 mmol/L (135-145) Bedside Potassium 3.6 mmol/L (3.5-5.0) Bedside Chloride 96 mmol/L (98-110) Bedside Total CO2 31 mmol/L (23-32) Bedside Blood Urea Nitrogen 22 mg/dL (8-26) Bedside Creatinine 1.0 mg/dL (0.5-1.4) Bedside Ionized Calcium (Acacia) 1.14 mmol/L (1.13-1.32) Triglycerides Level 247 mg/dL (0-150) Cholesterol Level 172 mg/dL (0-200) LDL Cholesterol, Calculated 85 mg/dL (0-100) VLDL Cholesterol, Calculated 49 mg/dL (0-40) Non-HDL Cholesterol Calculated 134 mg/dL (0-129) HDL Cholesterol 38 mg/dL (40-60) Cholesterol/HDL Ratio 4.5 Thyroid Stimulating Hormone (TSH) 1.918 uIU/mL (0.358-3.74) Prothrombin Time 13.0 SEC (11.7-14.0) Prothromb Time International Ratio 1.0 (0.8-1.1) Laboratory Tests Test 04/28/18 23:20 04/28/18 23:27 04/29/18 02:45 04/29/18 09:20 White Blood Count 10.6 x10^3/uL (4.0-11.0) Red Blood Count 5.15 x10^6/uL (3.50-5.40) Hemoglobin 15.3 g/dL (12.0-15.5) Hematocrit 45.4 % (36.0-47.0) Mean Corpuscular Volume 88 fL (79-100) Mean Corpuscular Hemoglobin 30 pg (25-35) Mean Corpuscular Hemoglobin Concent 34 g/dL (31-37) Red Cell Distribution Width 14.1 % (11.5-14.5) Platelet Count 355 x10^3/uL (140-400) Neutrophils (%) (Auto) 66 % (31-73) Lymphocytes (%) (Auto) 25 % (24-48) Monocytes (%) (Auto) 7 % (0-9) Eosinophils (%) (Auto) 1 % (0-3) Basophils (%) (Auto) 1 % (0-3) Neutrophils # (Auto) 7.0 x10^3uL (1.8-7.7) Lymphocytes # (Auto) 2.7 x10^3/uL (1.0-4.8) Monocytes # (Auto) 0.8 x10^3/uL (0.0-1.1) Eosinophils # (Auto) 0.1 x10^3/uL (0.0-0.7) Basophils # (Auto) 0.1 x10^3/uL (0.0-0.2) Sodium Level 144 mmol/L (136-145) Potassium Level 3.6 mmol/L (3.5-5.1) Chloride Level 100 mmol/L (98-107) Carbon Dioxide Level 32 mmol/L (21-32) Anion Gap 12 (6-14) 17 mmol/L (6-14) Blood Urea Nitrogen 21 mg/dL (7-20) Creatinine 1.2 mg/dL (0.6-1.0) Estimated GFR (Cockcroft-Gault) 44.5 BUN/Creatinine Ratio 18 (6-20) Glucose Level 240 mg/dL (70-99) 223 mg/dL (70-99) Calcium Level 9.4 mg/dL (8.5-10.1) Magnesium Level 1.9 mg/dL (1.8-2.4) Total Bilirubin 0.5 mg/dL (0.2-1.0) Aspartate Amino Transf (AST/SGOT) 22 U/L (15-37) Alanine Aminotransferase (ALT/SGPT) 19 U/L (14-59) Alkaline Phosphatase 92 U/L (46-116) Troponin I Quantitative 0.046 ng/mL (0.000-0.055) 0.977 ng/mL (0.000-0.055) GF-Htf-L-Type Natriuretic Peptide 780 pg/mL (0-124) Total Protein 6.8 g/dL (6.4-8.2) Albumin 3.2 g/dL (3.4-5.0) Albumin/Globulin Ratio 0.9 (1.0-1.7) Bedside Hemoglobin 15.0 g/dL (12-15) Bedside Hematocrit 44 % (36-40) Bedside Sodium 140 mmol/L (135-145) Bedside Potassium 3.6 mmol/L (3.5-5.0) Bedside Chloride 96 mmol/L (98-110) Bedside Total CO2 31 mmol/L (23-32) Bedside Blood Urea Nitrogen 22 mg/dL (8-26) Bedside Creatinine 1.0 mg/dL (0.5-1.4) Bedside Ionized Calcium (Acacia) 1.14 mmol/L (1.13-1.32) Triglycerides Level 247 mg/dL (0-150) Cholesterol Level 172 mg/dL (0-200) LDL Cholesterol, Calculated 85 mg/dL (0-100) VLDL Cholesterol, Calculated 49 mg/dL (0-40) Non-HDL Cholesterol Calculated 134 mg/dL (0-129) HDL Cholesterol 38 mg/dL (40-60) Cholesterol/HDL Ratio 4.5 Thyroid Stimulating Hormone (TSH) 1.918 uIU/mL (0.358-3.74) Prothrombin Time 13.0 SEC (11.7-14.0) Prothromb Time International Ratio 1.0 (0.8-1.1) Images Images PROCEDURE After explaining the risks, benefits, and alternative options, informed consent was obtained from the patient. The patient was brought to the cardiac catheterization lab and the left chest and shoulder were prepped and draped in a sterile manner. 30 mL of 2% lidocaine was infiltrated into the skin and subcutaneous tissues for local anesthesia. An incision was made over the left infraclavicular fossa and using blunt dissection and cautery a pocket was created. Venous access was obtained in the left subclavian vein and 8 and 6 [place] sheaths inserted. A Biotronik bipolar active fixation right ventricular lead model Solia, serial # [id number] is advanced under fluoroscopy guidance and the tip was positioned in the right ventricle apex. Following this, a Biotronik bipolar active fixation right atrial lead model Solia, serial #[id number] was positioned in the right atrial appendage under fluoroscopy guidance. The leads were secured into place and attached to a Biotronik dual-chamber permanent pacemaker generator model Eluna 8 DR-T ProMRI, serial #[id number]. This was placed in the pocket that was subsequently closed in 3 layers. Hemostasis was secured. The right ventricular lead showed a sensing amplitude of 10.7 mV, impedance of 877 ohms and a threshold of 0.6 V. The right atrial lead showed a sensing amplitude of 3.2 mV, impedance of 604 ohms and a threshold of 0.6 V. Patient tolerated the procedure well. There were no immediate complications. CONCLUSION Successful implantation of Biotronik dual-chamber permanent pacemaker for complete heart block and severe symptomatic bradycardia. Signed by : Amadou Benitez, Electronically Approved : 04/29/2018 11:13:58 VTE Prophylaxis Ordered VTE Prophylaxis Devices: Yes VTE Pharmacological Prophylaxi: Contraindicated Assessment/Plan Assessment/Plan impression complete heart block; on Dopamine. / external pacing Successful implantation of Biotronik dual-chamber permanent pacemaker for complete heart block and severe symptomatic bradycardia. MORBID OBESITY HTN, HYPERLIPIDEMIA DM,II, hypothyroidism, POSSIBLE SLEEP APNEA plan icu bed transfer care to DR SOLOMON, NOTIFIED HOME MEDS ACCUCHECKS Patient was started on a dopamine drip.IN ER Post dopamine--- Heart rate improved 34 MIN CC TIME NIKHIL NEWTON MD Apr 29, 2018 10:52
--- NOTE | 2018-04-29 11:08 | PDOC ---
MODERATE SEDATION ASSESSMENT RISKS/ALTERNATIVES Risks/Alternatives Risks and alternatives of this type of sedation and procedure discussed with: RISK/ALTERNATIVES: Patient H & P ON CHART H & P H & P on chart and reviewed for co-morbid conditions and appropriate labs. H&P ON CHART: Yes STATUS PREG STATUS ASSESSED: N/A MEDS/ALLERGIES REVIEWED Meds/Allergies Reviewed Medications and Allergies including time and route of recently administered narcotics and sedatives. MEDS/ALLERGIES REVIEWED: Yes ASA RATING ASA RATING: III AIRWAY ASSESSMENT Airway Assessment Airway patency, oral function limitations, presence of caps, crowns, dentures, partials, and ability to extend neck assessed. AIRWAY ASSESSMENT: Yes MALLAMPATI SCORE MALLAMPATI SCORE: II PRE-SEDATION ASSESSMENT PRE-SEDATION ASSESSMENT: Yes KASSIE ROBERTSON MD Apr 29, 2018 11:07
--- NOTE | 2018-04-29 11:14 | CARD ---
MR#: [id number] Date of Study: 04/29/2018 Ordering Physician: RANDAL LIVE, Referring Physician: BARBI SILVESTRE, Tech: APPROVED REPORT PROCEDURES Successful implantation of Biotronik dual chamber permanent pacemaker Sedation Time: 75 Minutes INDICATIONS Complete heart block and severe symptomatic bradycardia PROCEDURE After explaining the risks, benefits, and alternative options, informed consent was obtained from the patient. The patient was brought to the cardiac catheterization lab and the left chest and shoulder were prepp ed and draped in a sterile manner. 30 mL of 2% lidocaine was infiltrated into the skin and subcutaneous tissues for local anesthesia. An incision was made over the left infraclavicular fossa and using blunt dissection and cautery a pocke t was created. Venous access was obtained in the left subclavian vein and 8 and 6 [place] sheaths inse rted. A Biotronik bipolar active fixation right ventricular lead model Solia, serial #[id number] is advanced under fluoroscopy guidance and the tip was positioned in the right ventricle apex. Following this, a Biotronik bipolar active fixation right atrial lead model Solia, serial #[id number] was positioned in t he right atrial appendage under fluoroscopy guidance. The leads were secured into place and attached to a Biotronik dual-chamber permanent pacemaker generator model Eluna 8 DR-T ProMRI, serial #[id number] . This was placed in the pocket that was subsequently closed in 3 layers. Hemostasis was secured. The right ventricular lead showed a sensing amplitude of 10.7 mV, impedance of 877 ohms and a thresho ld of 0.6 V. The right atrial lead showed a sensing amplitude of 3.2 mV, impedance of 604 ohms and a threshold of 0.6 V. Patient tolerated the procedure well. There were no immediate complications. CONCLUSION Successful implantation of Biotronik dual-chamber permanent pacemaker for complete heart block and se john symptomatic bradycardia. Signed by : Amadou Benitez, Electronically Approved : 04/29/2018 11:13:58
[2018-04-29] MEDS ORDERED: NO ANTICOAGULANT THERAPY. MC PRN (11:15)
--- NOTE | 2018-04-29 11:30 | RAD ---
Single view chest dated 04/29/2018: Comparison made to 04/28/2018.. Clinical Indication: Post pacemaker placement. Findings: Single upright portable exam of the chest was performed. Heart and mediastinal contours are stable. Interval placement of left subclavian pacer with leads projected to the right atrium and right ventricle. Mild elevation of right hemidiaphragm. Lungs are clear without focal consolidation. No pleural effusion or pneumothorax.. Impression:: Left subclavian pacer with no evidence of pneumothorax. Electronically signed by: Gatito Martinez MD (04/29/2018 11:28 AM) [facility]
[2018-04-29] MEDS ORDERED: ATROPINE 1 MG/10 ML DISP.SYRINGE. ONE (12:00)
[2018-04-29] MEDS ORDERED: DOPamine 400MG/250ML PREMIX 400 MG/250 ML BAG IV ONE (12:00)
--- NOTE | 2018-04-29 13:23 | CARD ---
PROCEDURES Successful implantation of Biotronik dual chamber permanent pacemaker Sedation Time: 75 Minutes INDICATIONS Complete heart block and severe symptomatic bradycardia PROCEDURE After explaining the risks, benefits, and alternative options, informed consent was obtained from the patient. The patient was brought to the cardiac catheterization lab and the left chest and shoulder were prepped and draped in a sterile manner. 30 mL of 2% lidocaine was infiltrated into the skin and subcutaneous tissues for local anesthesia. An incision was made over the left infraclavicular fossa and using blunt dissection and cautery a pocket was created. Venous access was obtained in the left subclavian vein and 8 and 6 [place] sheaths inserted. A Biotronik bipolar active fixation right ventricular lead model Solia, serial # [id number] is advanced under fluoroscopy guidance and the tip was positioned in the right ventricle apex. Following this, a Biotronik bipolar active fixation right atrial lead model Solia, serial #[id number] was positioned in the right atrial appendage under fluoroscopy guidance. The leads were secured into place and attached to a Biotronik dual-chamber permanent pacemaker generator model Eluna 8 DR-T ProMRI, serial #[id number]. This was placed in the pocket that was subsequently closed in 3 layers. Hemostasis was secured. The right ventricular lead showed a sensing amplitude of 10.7 mV, impedance of 877 ohms and a threshold of 0.6 V. The right atrial lead showed a sensing amplitude of 3.2 mV, impedance of 604 ohms and a threshold of 0.6 V. Patient tolerated the procedure well. There were no immediate complications. CONCLUSION Successful implantation of Biotronik dual-chamber permanent pacemaker for complete heart block and severe symptomatic bradycardia. Signed by : Amadou Benitez, Electronically Approved : 04/29/2018 11:13:58 AMBREEN
--- NOTE | 2018-04-29 13:37 | NUR ---
SS following for discharge planning. SS reviewed pt chart. Pt is from home with spouse and is currently requiring oxygen. No discharge needs noted at this time. SS will continue to follow for pending discharge needs.
--- NOTE | 2018-04-29 13:48 | NUR ---
Order received from Dr. Duarte to restart home medications. Patient normally sees Dr. Ott-- his office states that he is out of town this week. Patient states she is fine with hospitalist group staying on her case. Dr. Jackson will remain as admitting physician. Patient ate lunch. Comfortable at this time. PPM working correctly. Dressing is clean, dry, and intact. See assessments, VS.
[2018-04-29] MEDS ORDERED: ERGOCALCIFEROL (VITAMIN D2) 50,000 UNIT CAPSULE. PO SCH (14:00)
[2018-04-29] MEDS: TRIAMTERENE/HCTZ 37.5/25MG TABLET. PO SCH (14:36)
[2018-04-29] MEDS: CYANOCOBALAMIN (VITAMIN B-12) 1,000 MCG TABLET. PO SCH (14:37)
[2018-04-29] MEDS: SERTRALINE 50 MG TABLET. PO SCH (14:37)
[2018-04-29] MEDS: LEVOTHYROXINE 25 MCG TABLET. PO SCH (14:37)
[2018-04-29] MEDS: oxyCODONE/APAP 10/325 1 TAB TABLET PO PRN ×2 (14:56→23:07)
[2018-04-29] MEDS: PANTOPRAZOLE 40 MG TABLET.DR. PO SCH (16:09)
[2018-04-29] MEDS: metFORMIN 500 MG TABLET PO SCH (16:10)
[2018-04-29] MEDS ORDERED: DEXTROSE 50% 25 GM / 50ML DISP.SYRIN. IV PRN (18:00)
[2018-04-29] MEDS: INSULIN LISPRO 300 UNITS/3 ML INSULN.PEN. SQ SCH (18:30)
[2018-04-29] MEDS: PREGABALIN 75 MG CAPSULE PO SCH (20:35)
[2018-04-29] MEDS ORDERED: rOPINIRole 1 MG TABLET. PO SCH (21:00)
[2018-04-29] MEDS ORDERED: ATORVASTATIN CALCIUM 10 MG TABLET. PO SCH (21:00)
[2018-04-29] MEDS ORDERED: IBUPROFEN 400 MG TABLET. PO PRN (21:30)
[2018-04-30] VITALS (17 sets, daily range): BP systolic 104–145; BP diastolic 54–99
[2018-04-30 06:22] LABS: BASO # 0.1 x10^3/uL (0.0-0.2); BASO % 1 % (0-3); EOS # 0.1 x10^3/uL (0.0-0.7); EOS % 1 % (0-3); HEMOGLOBIN 13.5 g/dL (12.0-15.5); LYMPH # 1.9 x10^3/uL (1.0-4.8); LYMPH % 26 % (24-48); MEAN CORPUSCULAR HEMOGLOBIN 30 pg (25-35); MEAN CORPUSCULAR HGB CONC 35 g/dL (31-37); MEAN CORPUSCULAR VOLUME 87 fL (79-100); MONO # 0.5 x10^3/uL (0.0-1.1); MONO % 7 % (0-9); NEUT # 4.6 x10^3uL (1.8-7.7); NEUT % 65 % (31-73); PLATELET COUNT 226 x10^3/uL (140-400); RED BLOOD COUNT 4.48 x10^6/uL (3.50-5.40); RED CELL DISTRIBUTION WIDTH 13.9 % (11.5-14.5); WHITE BLOOD COUNT 7.1 x10^3/uL (4.0-11.0)
[2018-04-30 06:47] LABS: ALBUMIN 2.7 g/dL (3.4-5.0); ALBUMIN/GLOBULIN RATIO 0.8 (1.0-1.7); CALCIUM 8.5 mg/dL (8.5-10.1); TOTAL BILIRUBIN 0.5 mg/dL (0.2-1.0)
[2018-04-30] MEDS: LEVOTHYROXINE 25 MCG TABLET. PO SCH (07:08)
[2018-04-30] MEDS: oxyCODONE/APAP 10/325 1 TAB TABLET PO PRN ×2 (07:09→13:57)
[2018-04-30] MEDS ORDERED: POTASSIUM CHLORIDE 20 MEQ TABLET.ER. PO ONE ×3 (07:30→17:15)
[2018-04-30] MEDS: PANTOPRAZOLE 40 MG TABLET.DR. PO SCH (07:40)
[2018-04-30] MEDS: INSULIN LISPRO 300 UNITS/3 ML INSULN.PEN. SQ SCH ×2 (08:00→12:00)
[2018-04-30] MEDS: PREGABALIN 75 MG CAPSULE PO SCH (08:21)
[2018-04-30] MEDS: SERTRALINE 50 MG TABLET. PO SCH (08:22)
[2018-04-30] MEDS: metFORMIN 500 MG TABLET PO SCH ×2 (08:22→17:19)
[2018-04-30] MEDS: CYANOCOBALAMIN (VITAMIN B-12) 1,000 MCG TABLET. PO SCH (08:22)
[2018-04-30] MEDS: TRIAMTERENE/HCTZ 37.5/25MG TABLET. PO SCH (08:33)
--- NOTE | 2018-04-30 08:41 | RAD ---
EXAM: Chest, single view. HISTORY: Pacemaker placement. COMPARISON: 04/29/2018 FINDINGS: A frontal view of the chest is obtained. There is a dual lead left cardiac pacemaker overlying expected position. There is no pneumothorax. There is no pleural effusion. There is no consolidation. The heart is normal in size. IMPRESSION: 1. Left cardiac pacemaker overlying expected location. 2. No acute pulmonary finding. Electronically signed by: Debra Marroquin MD (04/30/2018 8:37 AM) [id number]
[2018-04-30] MEDS ORDERED: NON FORMULARY ITEM (Biotin 10,000 MCG) PO SCH (09:00)
--- NOTE | 2018-04-30 09:00 | NUR ---
Pacemaker tech here to evaluate pacemaker function and placement.
--- NOTE | 2018-04-30 10:29 | CARD ---
MR#: [id number] Date of Study: 04/29/2018 Ordering Physician: CHAUNCEY ARMSTRONG, Referring Physician: HONEY SOLOMON Tech: Rosalva Gerber ADITI APPROVED REPORT EXAM: Two-dimensional and M-mode echocardiogram with Doppler and color Doppler. Other Information Quality : Technically LimitedHR: 60bpm Rhythm : NSRTechnically limited study due to body habitus. INDICATION Arrhythmia 2D DIMENSIONS RVDd2.6 (2.9-3.5cm)Left Atrium(2D)2.6 (1.6-4.0cm) IVSd0.9 (0.7-1.1cm)Aortic Root(2D)2.8 (2.0-3.7cm) LVDd4.6 (3.9-5.9cm)LVOT Diameter2.0 (1.8-2.4cm) PWd0.8 (0.7-1.1cm)LVDs3.3 (2.5-4.0cm) FS (%) 35.2 %SV69.2 ml LVEF(%)60.0 (>50%) M-Mode DIMENSIONS Left Atrium(MM)3.43 (2.5-4.0cm)Aortic Root3.05 (2.2-3.7cm) Aortic Valve AoV Peak Aaron.129.7cm/sAoV VTI27.4cm AO Peak GR.6.7mmHgLVOT VTI 22.48cm AO Mean GR.3mmHgAVA (VMAX)2.50cm2 ALEXIA (VTI)2.50cm2 Mitral Valve MV E Vjravwjx62.6cm/sMV DECEL [id number] MV A Bmwyhgor16.3cm/sE/A Ratio1.2 MV A [id number] TDI Lateral E' P. V8.17cm/sMedial E' P. V8.56cm/s E/Lateral E'11.1E/Medial E'10.6 Tricuspid Valve TR P. Agckjyhq476vz/sRAP [id number] TR Peak Gr.57baVlEPSO45tfMy LEFT VENTRICLE The left ventricle is normal size. There is normal left ventricular wall thickness. The left ventricu lar systolic function is normal. The Ejection Fraction is 55-60%. Septal motion consistent with condu ction abnormality. RIGHT VENTRICLE The right ventricle is normal size. There is normal right ventricular wall thickness. The right ventr icular systolic function is normal. ATRIA The left atrium size is normal. The right atrium size is normal. The interatrial septum is intact wit h no evidence for an atrial septal defect or patent foramen ovale as noted on 2-D or Doppler imaging. AORTIC VALVE The aortic valve is trileaflet. The aortic valve is thickened but opens well. Doppler and Color Flow revealed no significant aortic regurgitation. There is no significant aortic valvular stenosis. MITRAL VALVE The mitral valve is mildly thickened. There is no evidence of mitral valve prolapse. There is no mitr al valve stenosis. Doppler and Color-flow revealed trace mitral regurgitation. TRICUSPID VALVE The tricuspid valve is normal in structure and function. Doppler and Color Flow revealed trace tricus pid regurgitation. The PA pressure was estimated at 29 mmHg. There is no tricuspid valve prolapse or vegetation. There is no tricuspid valve stenosis. PULMONIC VALVE The pulmonic valve is not well visualized. GREAT VESSELS The aortic root is normal in size. The ascending aorta is normal in size. The IVC is dilated. PERICARDIAL EFFUSION There is no evidence of significant pericardial effusion. Critical Notification Critical Value: No <Conclusion> The left ventricular systolic function is normal. The Ejection Fraction is 55-60%. Trace mitral regurgitation. Trace tricuspid regurgitation. The PA pressure was estimated at 29 mmHg. There is no evidence of significant pericardial effusion. Signed by : Amadou Benitez, Electronically Approved : 04/30/2018 10:28:56
--- NOTE | 2018-04-30 11:40 | PDOC ---
PROGRESS NOTES History of Present Illness History of Present Illness Assessment/Plan Assessment/Plan impression complete heart block; on Dopamine. / external pacing Successful implantation of Biotronik dual-chamber permanent pacemaker for complete heart block and severe symptomatic bradycardia. MORBID OBESITY HTN, HYPERLIPIDEMIA DM,II, hypothyroidism, POSSIBLE SLEEP APNEA plan d/c today f/u dr brown given icu bed transfer care to DR SOLOMON, NOTIFIED HOME MEDS ACCUCHECKS Patient was started on a dopamine drip.IN ER Post dopamine--- Heart rate improved 36 min d/c planning time Vitals Vitals Vital Signs Date Time Temp Pulse Resp B/P (MAP) Pulse Ox O2 Delivery O2 Flow Rate FiO2 04/30/18 09:00 60 12 109/54 (72) 92 Nasal Cannula 2.0 04/30/18 07:00 97.7 97.7 Physical Exam General: Alert, Oriented X3, Cooperative, No acute distress Heart: Normal S1, Normal S2, No murmurs, Other (paced with underlying CHB) Lungs: Clear Abdomen: Normal bowel sounds, Soft Extremities: No cyanosis Skin: No significant lesion, Other (incision dry, clean) Labs LABS Laboratory Tests Test 04/29/18 17:43 04/29/18 18:40 04/30/18 04:15 Glucose (Fingerstick) 232 mg/dL (70-99) Troponin I Quantitative 0.644 ng/mL (0.000-0.055) White Blood Count 7.1 x10^3/uL (4.0-11.0) Red Blood Count 4.48 x10^6/uL (3.50-5.40) Hemoglobin 13.5 g/dL (12.0-15.5) Hematocrit 39.0 % (36.0-47.0) Mean Corpuscular Volume 87 fL (79-100) Mean Corpuscular Hemoglobin 30 pg (25-35) Mean Corpuscular Hemoglobin Concent 35 g/dL (31-37) Red Cell Distribution Width 13.9 % (11.5-14.5) Platelet Count 226 x10^3/uL (140-400) Neutrophils (%) (Auto) 65 % (31-73) Lymphocytes (%) (Auto) 26 % (24-48) Monocytes (%) (Auto) 7 % (0-9) Eosinophils (%) (Auto) 1 % (0-3) Basophils (%) (Auto) 1 % (0-3) Neutrophils # (Auto) 4.6 x10^3uL (1.8-7.7) Lymphocytes # (Auto) 1.9 x10^3/uL (1.0-4.8) Monocytes # (Auto) 0.5 x10^3/uL (0.0-1.1) Eosinophils # (Auto) 0.1 x10^3/uL (0.0-0.7) Basophils # (Auto) 0.1 x10^3/uL (0.0-0.2) Sodium Level 143 mmol/L (136-145) Potassium Level 3.0 mmol/L (3.5-5.1) Chloride Level 102 mmol/L (98-107) Carbon Dioxide Level 32 mmol/L (21-32) Anion Gap 9 (6-14) Blood Urea Nitrogen 18 mg/dL (7-20) Creatinine 1.0 mg/dL (0.6-1.0) Estimated GFR (Cockcroft-Gault) 55.0 BUN/Creatinine Ratio 18 (6-20) Glucose Level 154 mg/dL (70-99) Calcium Level 8.5 mg/dL (8.5-10.1) Total Bilirubin 0.5 mg/dL (0.2-1.0) Aspartate Amino Transf (AST/SGOT) 17 U/L (15-37) Alanine Aminotransferase (ALT/SGPT) 14 U/L (14-59) Alkaline Phosphatase 79 U/L (46-116) Total Protein 6.0 g/dL (6.4-8.2) Albumin 2.7 g/dL (3.4-5.0) Albumin/Globulin Ratio 0.8 (1.0-1.7) Comment Review of Relevant I have reviewed the following items andrés (where applicable) has been applied. Labs Laboratory Tests Test 04/28/18 23:20 04/28/18 23:27 04/29/18 01:57 04/29/18 02:45 White Blood Count 10.6 x10^3/uL (4.0-11.0) Red Blood Count 5.15 x10^6/uL (3.50-5.40) Hemoglobin 15.3 g/dL (12.0-15.5) Hematocrit 45.4 % (36.0-47.0) Mean Corpuscular Volume 88 fL (79-100) Mean Corpuscular Hemoglobin 30 pg (25-35) Mean Corpuscular Hemoglobin Concent 34 g/dL (31-37) Red Cell Distribution Width 14.1 % (11.5-14.5) Platelet Count 355 x10^3/uL (140-400) Neutrophils (%) (Auto) 66 % (31-73) Lymphocytes (%) (Auto) 25 % (24-48) Monocytes (%) (Auto) 7 % (0-9) Eosinophils (%) (Auto) 1 % (0-3) Basophils (%) (Auto) 1 % (0-3) Neutrophils # (Auto) 7.0 x10^3uL (1.8-7.7) Lymphocytes # (Auto) 2.7 x10^3/uL (1.0-4.8) Monocytes # (Auto) 0.8 x10^3/uL (0.0-1.1) Eosinophils # (Auto) 0.1 x10^3/uL (0.0-0.7) Basophils # (Auto) 0.1 x10^3/uL (0.0-0.2) Sodium Level 144 mmol/L (136-145) Potassium Level 3.6 mmol/L (3.5-5.1) Chloride Level 100 mmol/L (98-107) Carbon Dioxide Level 32 mmol/L (21-32) Anion Gap 12 (6-14) 17 mmol/L (6-14) Blood Urea Nitrogen 21 mg/dL (7-20) Creatinine 1.2 mg/dL (0.6-1.0) Estimated GFR (Cockcroft-Gault) 44.5 BUN/Creatinine Ratio 18 (6-20) Glucose Level 240 mg/dL (70-99) 223 mg/dL (70-99) Calcium Level 9.4 mg/dL (8.5-10.1) Magnesium Level 1.9 mg/dL (1.8-2.4) Total Bilirubin 0.5 mg/dL (0.2-1.0) Aspartate Amino Transf (AST/SGOT) 22 U/L (15-37) Alanine Aminotransferase (ALT/SGPT) 19 U/L (14-59) Alkaline Phosphatase 92 U/L (46-116) Troponin I Quantitative 0.046 ng/mL (0.000-0.055) 0.977 ng/mL (0.000-0.055) KV-Nhv-O-Type Natriuretic Peptide 780 pg/mL (0-124) Total Protein 6.8 g/dL (6.4-8.2) Albumin 3.2 g/dL (3.4-5.0) Albumin/Globulin Ratio 0.9 (1.0-1.7) Bedside Hemoglobin 15.0 g/dL (12-15) Bedside Hematocrit 44 % (36-40) Bedside Sodium 140 mmol/L (135-145) Bedside Potassium 3.6 mmol/L (3.5-5.0) Bedside Chloride 96 mmol/L (98-110) Bedside Total CO2 31 mmol/L (23-32) Bedside Blood Urea Nitrogen 22 mg/dL (8-26) Bedside Creatinine 1.0 mg/dL (0.5-1.4) Bedside Ionized Calcium ([place]acia) 1.14 mmol/L (1.13-1.32) Nasal Screen MRSA (PCR) Negative (Negative) Hemoglobin A1c 8.0 % (4.8-5.6) Triglycerides Level 247 mg/dL (0-150) Cholesterol Level 172 mg/dL (0-200) LDL Cholesterol, Calculated 85 mg/dL (0-100) VLDL Cholesterol, Calculated 49 mg/dL (0-40) Non-HDL Cholesterol Calculated 134 mg/dL (0-129) HDL Cholesterol 38 mg/dL (40-60) Cholesterol/HDL Ratio 4.5 Thyroid Stimulating Hormone (TSH) 1.918 uIU/mL (0.358-3.74) Test 04/29/18 09:20 04/29/18 17:43 04/29/18 18:40 04/30/18 04:15 Prothrombin Time 13.0 SEC (11.7-14.0) Prothromb Time International Ratio 1.0 (0.8-1.1) Troponin I Quantitative 1.094 ng/mL (0.000-0.055) 0.644 ng/mL (0.000-0.055) Glucose (Fingerstick) 232 mg/dL (70-99) White Blood Count 7.1 x10^3/uL (4.0-11.0) Red Blood Count 4.48 x10^6/uL (3.50-5.40) Hemoglobin 13.5 g/dL (12.0-15.5) Hematocrit 39.0 % (36.0-47.0) Mean Corpuscular Volume 87 fL (79-100) Mean Corpuscular Hemoglobin 30 pg (25-35) Mean Corpuscular Hemoglobin Concent 35 g/dL (31-37) Red Cell Distribution Width 13.9 % (11.5-14.5) Platelet Count 226 x10^3/uL (140-400) Neutrophils (%) (Auto) 65 % (31-73) Lymphocytes (%) (Auto) 26 % (24-48) Monocytes (%) (Auto) 7 % (0-9) Eosinophils (%) (Auto) 1 % (0-3) Basophils (%) (Auto) 1 % (0-3) Neutrophils # (Auto) 4.6 x10^3uL (1.8-7.7) Lymphocytes # (Auto) 1.9 x10^3/uL (1.0-4.8) Monocytes # (Auto) 0.5 x10^3/uL (0.0-1.1) Eosinophils # (Auto) 0.1 x10^3/uL (0.0-0.7) Basophils # (Auto) 0.1 x10^3/uL (0.0-0.2) Sodium Level 143 mmol/L (136-145) Potassium Level 3.0 mmol/L (3.5-5.1) Chloride Level 102 mmol/L (98-107) Carbon Dioxide Level 32 mmol/L (21-32) Anion Gap 9 (6-14) Blood Urea Nitrogen 18 mg/dL (7-20) Creatinine 1.0 mg/dL (0.6-1.0) Estimated GFR (Cockcroft-Gault) 55.0 BUN/Creatinine Ratio 18 (6-20) Glucose Level 154 mg/dL (70-99) Calcium Level 8.5 mg/dL (8.5-10.1) Total Bilirubin 0.5 mg/dL (0.2-1.0) Aspartate Amino Transf (AST/SGOT) 17 U/L (15-37) Alanine Aminotransferase (ALT/SGPT) 14 U/L (14-59) Alkaline Phosphatase 79 U/L (46-116) Total Protein 6.0 g/dL (6.4-8.2) Albumin 2.7 g/dL (3.4-5.0) Albumin/Globulin Ratio 0.8 (1.0-1.7) Laboratory Tests Test 04/29/18 17:43 04/29/18 18:40 04/30/18 04:15 Glucose (Fingerstick) 232 mg/dL (70-99) Troponin I Quantitative 0.644 ng/mL (0.000-0.055) White Blood Count 7.1 x10^3/uL (4.0-11.0) Red Blood Count 4.48 x10^6/uL (3.50-5.40) Hemoglobin 13.5 g/dL (12.0-15.5) Hematocrit 39.0 % (36.0-47.0) Mean Corpuscular Volume 87 fL (79-100) Mean Corpuscular Hemoglobin 30 pg (25-35) Mean Corpuscular Hemoglobin Concent 35 g/dL (31-37) Red Cell Distribution Width 13.9 % (11.5-14.5) Platelet Count 226 x10^3/uL (140-400) Neutrophils (%) (Auto) 65 % (31-73) Lymphocytes (%) (Auto) 26 % (24-48) Monocytes (%) (Auto) 7 % (0-9) Eosinophils (%) (Auto) 1 % (0-3) Basophils (%) (Auto) 1 % (0-3) Neutrophils # (Auto) 4.6 x10^3uL (1.8-7.7) Lymphocytes # (Auto) 1.9 x10^3/uL (1.0-4.8) Monocytes # (Auto) 0.5 x10^3/uL (0.0-1.1) Eosinophils # (Auto) 0.1 x10^3/uL (0.0-0.7) Basophils # (Auto) 0.1 x10^3/uL (0.0-0.2) Sodium Level 143 mmol/L (136-145) Potassium Level 3.0 mmol/L (3.5-5.1) Chloride Level 102 mmol/L (98-107) Carbon Dioxide Level 32 mmol/L (21-32) Anion Gap 9 (6-14) Blood Urea Nitrogen 18 mg/dL (7-20) Creatinine 1.0 mg/dL (0.6-1.0) Estimated GFR (Cockcroft-Gault) 55.0 BUN/Creatinine Ratio 18 (6-20) Glucose Level 154 mg/dL (70-99) Calcium Level 8.5 mg/dL (8.5-10.1) Total Bilirubin 0.5 mg/dL (0.2-1.0) Aspartate Amino Transf (AST/SGOT) 17 U/L (15-37) Alanine Aminotransferase (ALT/SGPT) 14 U/L (14-59) Alkaline Phosphatase 79 U/L (46-116) Total Protein 6.0 g/dL (6.4-8.2) Albumin 2.7 g/dL (3.4-5.0) Albumin/Globulin Ratio 0.8 (1.0-1.7) Medications Current Medications Sodium Chloride 1,000 ml @ 1,000 mls/hr 1X ONCE IV Last administered on at 01:30; Start 04/28/18 at 23:15; Stop 04/29/18 at 00:14; Status DC Midazolam HCl (Versed) 2 mg 1X ONCE NS Last administered on 04/28/18at 23:16; Start 04/28/18 at 23:15; Stop 04/28/18 at 23:16; Status DC Epinephrine HCl 4 mg/Sodium Chloride 254 ml @ 0 mls/hr CONT PRN IV SEE I/O RECORD; Start 04/28/18 at 23:45; Stop 04/28/18 at 23:45; Status DC Atropine Sulfate (ATROPINE 0.5mg SYRINGE) 0.5 mg 1X ONCE IV Last administered on 04/28/18at 23:28; Start 04/28/18 at 23:45; Stop 04/28/18 at 23:46; Status DC Atropine Sulfate (ATROPINE 0.5mg SYRINGE) 0.5 mg 1X ONCE IV Last administered on 04/28/18at 23:32; Start 04/28/18 at 23:45; Stop 04/28/18 at 23:46; Status DC Dopamine HCl/ Dextrose 250 ml @ 0 mls/hr 1X ONCE IV Last administered on at 00:00; Start 04/28/18 at 23:45; Stop 04/28/18 at 23:46; Status DC Ondansetron HCl (Zofran) 4 mg PRN Q8HRS PRN IV NAUSEA/VOMITING Last administered on 04/29/18at 11:40; Start 04/29/18 at 00:15; Stop 04/30/18 at 00:14 ; Status DC Morphine Sulfate (Morphine Sulfate) 2 mg PRN Q2HR PRN IV PAIN Last administered on 04/29/18at 11:30; Start 04/29/18 at 00:15; Stop 04/29/18 at 13:51 ; Status DC Fentanyl Citrate (Fentanyl 2ml Vial) 25 mcg 1X ONCE IV Last administered on 02/05at 02:43; Start 04/29/18 at 01:00; Stop 04/29/18 at 01:01; Status DC Midazolam HCl (Versed) 2 mg PRN Q2HR PRN IV ANXIETY / AGITATION Last administered on 04/29/18at 04:35; Start 04/29/18 at 04:15 Midazolam HCl (Versed) 5 mg STK-MED ONCE .ROUTE ; Start 04/29/18 at 09:37; Stop 04/29/18 at 09:38; Status DC Fentanyl Citrate (Fentanyl 5ml Vial) 250 mcg STK-MED ONCE .ROUTE ; Start at 09:38; Stop 04/29/18 at 09:39; Status DC Lidocaine/ Epinephrine (LIDOCAINE 2%-EPI 1:100,000 multi-dose) 20 ml STK-MED ONCE .ROUTE ; Start 04/29/18 at 09:54; Stop 04/29/18 at 09:55; Status DC Cefazolin Sodium/ Dextrose 50 ml @ As Directed STK-MED ONCE IV ; Start 04/29/18 at 09:54; Stop 04/29/18 at 09:55; Status DC Heparin Sodium/ Sodium Chloride (HEPARIN for ARTERIAL LINE FLUSH) 1,000 unit 1X ONCE IART Last administered on 04/29/18at 10:00; Start 04/29/18 at 10:00; Stop 04/29/18 at 10:11; Status DC Midazolam HCl (Versed) 5 mg 1X ONCE IV Last administered on 04/29/18at 10:00; Start 04/29/18 at 10:00; Stop 04/29/18 at 10:11; Status DC Fentanyl Citrate (Fentanyl 5ml Vial) 250 mcg 1X ONCE IV Last administered on at 10:00; Start 04/29/18 at 10:00; Stop 04/29/18 at 10:11; Status DC Lidocaine/ Epinephrine (LIDOCAINE 2%-EPI 1:100,000 multi-dose) 20 ml 1X ONCE IJ Last administered on 04/29/18at 10:00; Start 04/29/18 at 10:00; Stop at 10:11; Status DC Bacitracin 28202 unit/Sodium Chloride 250 ml @ 0 mls/hr 1X ONCE IRR Last administered on 04/29/18at 10:15; Start 04/29/18 at 10:15; Stop 04/29/18 at 10:16 ; Status DC Cefazolin Sodium/ Dextrose 50 ml @ 100 mls/hr 1X ONCE IV Last administered on 04/29/18at 10:00; Start 04/29/18 at 10:00; Stop 04/29/18 at 10:29; Status DC Midazolam HCl (Versed) 5 mg STK-MED ONCE .ROUTE ; Start 04/29/18 at 10:16; Stop 04/29/18 at 10:17; Status DC Fentanyl Citrate (Fentanyl 5ml Vial) 250 mcg STK-MED ONCE .ROUTE ; Start at 10:16; Stop 04/29/18 at 10:17; Status DC Info (No Anticoagulant Therapy) 1 ea CONT PRN PRN MC PER PROTOCOL; Start at 11:15 Cefazolin Sodium/ Dextrose 50 ml @ 100 mls/hr 1X ONCE IV Last administered on 04/29/18at 14:38; Start 04/29/18 at 16:00; Stop 04/29/18 at 16:29; Status DC Cyanocobalamin (Vitamin B-12) 1,000 mcg DAILY PO Last administered on at 08:22; Start 04/29/18 at 14:00 Ergocalciferol (Vitamin D2) 50,000 unit WEEKLY PO Last administered on at 14:37; Start 04/29/18 at 14:00 Oxycodone/ Acetaminophen (Percocet 10/325) 1 tab PRN Q8HRS PRN PO PAIN SEVERE Last administered on 3/13/19at 07:09; Start 04/29/18 at 14:00 Triamterene/HCTZ (Maxzide 37.5/ 25mg) 1 tab DAILY PO Last administered on 08:33; Start 04/29/18 at 14:00 Non-Formulary Medication (Biotin ) 10,000 mcg DAILY PO ; Start 04/30/18 at 09:00 ; Status UNV Levothyroxine Sodium (Synthroid) 25 mcg DAILY06 PO Last administered on 07:08; Start 04/29/18 at 14:00 Metformin HCl (Glucophage) 1,000 mg BIDWMEALS PO Last administered on 08:22; Start 04/29/18 at 17:00 Pantoprazole Sodium (Protonix) 40 mg BIDAC PO Last administered on 04/30/18 07 :40; Start 04/29/18 at 16:30 Atorvastatin Calcium (Lipitor) 10 mg QHS PO Last administered on 04/29/18 20: 34; Start 04/29/18 at 21:00 Pregabalin (Lyrica) 150 mg BID PO Last administered on 04/30/18 08:21; Start 04/29/18 at 21:00 Ropinirole HCl (Requip) 0.5 mg QHS PO Last administered on 04/29/18 20:35; Start 04/29/18 at 21:00 Sertraline HCl (Zoloft) 100 mg DAILY PO Last administered on 04/30/18 08:22; Start 04/29/18 at 14:00 Insulin Human Lispro (HumaLOG) 0-5 UNITS TIDWMEALS SQ ; Start 04/29/18 at 18:30 Dextrose (Dextrose 50%-Water Syringe) 12.5 gm PRN Q15MIN PRN IV SEE COMMENTS; Start 04/29/18 at 18:00 Ibuprofen (Motrin) 400 mg PRN Q6HRS PRN PO INFLAMMATION Last administered on 21:28; Start 04/29/18 at 21:30 Potassium Chloride (Klor-Con) 20 meq 1X ONCE PO Last administered on 07:40; Start 04/30/18 at 07:30; Stop 04/30/18 at 07:39; Status DC Potassium Chloride (Klor-Con) 20 meq 1X ONCE PO Last administered on at 11:14; Start 04/30/18 at 11:00; Stop 04/30/18 at 11:01; Status DC Active Scripts Active Reported Requip (Ropinirole Hcl) 0.5 Mg Tablet 1 Tab PO QHS Lyrica (Pregabalin) 150 Mg Capsule 1 Cap PO BID Biotin 10,000 Mcg Capsule 10,000 Mcg PO DAILY B-12 (Cyanocobalamin (Vitamin B-12)) 1,000 Mcg Tablet 1,000 Mcg PO DAILY Levothyroxine Sodium 25 Mcg Tablet 1 Tab PO DAILY Vitamin D2 (Ergocalciferol (Vitamin D2)) 50,000 Unit Capsule 1 Cap PO WEEKLY Omeprazole 20 Mg Capsule.dr 20 Mg PO BID Triamterene-Hctz 37.5-25 Mg Tb (Triamterene/Hydrochlorothiazid) 1 Each Tablet 1 Tab PO DAILY Metformin Hcl 1,000 Mg Tablet 1,000 Mg PO BIDWMEALS Pravastatin Sodium 40 Mg Tablet 1 Tab PO DAILY Zoloft (Sertraline Hcl) 100 Mg Tablet 1 Tab PO DAILY Oxycodone-Acetaminophen 10-325 (Oxycodone Hcl/Acetaminophen) 1 Each Tablet 1 Each PO PRN Q8HRS PRN Vitals/I & O Vital Sign - Last 24 Hours 04/29/18 04/29/18 04/29/18 04/29/18 11:45 12:00 12:00 12:00 Temp 98.0 98.0 Pulse 78 80 Resp 17 16 11 B/P (MAP) 107/64 (78) 105/59 (74) Pulse Ox 95 96 97 O2 Delivery Nasal Cannula Nasal Cannula Nasal Cannula Nasal Cannula O2 Flow Rate 3.0 3.0 3.0 3.0 04/29/18 04/29/18 04/29/18 04/29/18 13:00 14:00 14:56 15:00 Pulse 78 75 81 Resp 17 13 16 15 B/P (MAP) 119/65 (83) 114/54 (74) 147/67 (93) Pulse Ox 94 95 95 O2 Delivery Nasal Cannula Nasal Cannula Room Air Nasal Cannula O2 Flow Rate 3.0 3.0 3.0 04/29/18 04/29/18 04/29/18 04/29/18 16:00 16:00 17:00 18:00 Temp 98.3 98.3 Pulse 72 69 68 Resp 18 18 20 B/P (MAP) 155/74 (101) 133/69 (90) 152/58 (89) Pulse Ox 95 97 96 O2 Delivery Nasal Cannula Nasal Cannula Nasal Cannula Nasal Cannula O2 Flow Rate 3.0 3.0 3.0 3.0 04/29/18 04/29/18 04/29/18 04/29/18 19:00 20:00 20:00 21:00 Temp 97.4 97.4 Pulse 69 64 62 Resp 18 20 14 B/P (MAP) 109/62 (78) 119/52 (74) 110/59 (76) Pulse Ox 94 97 95 O2 Delivery Nasal Cannula Nasal Cannula Nasal Cannula Nasal Cannula O2 Flow Rate 3.0 3.0 3.0 3.0 04/29/18 04/29/18 04/29/18 04/30/18 22:00 23:00 23:07 00:00 Temp 98.0 98.0 Pulse 65 60 60 Resp 20 15 17 16 B/P (MAP) 130/61 (84) 83/52 (62) 110/58 (75) Pulse Ox 96 95 95 95 O2 Delivery Nasal Cannula Nasal Cannula Nasal Cannula Nasal Cannula O2 Flow Rate 3.0 2.0 3.0 2.0 04/30/18 04/30/18 04/30/18 04/30/18 00:00 00:15 01:00 02:00 Pulse 60 60 Resp 16 15 20 B/P (MAP) 115/59 (77) 108/55 (72) Pulse Ox 95 96 95 O2 Delivery Nasal Cannula Nasal Cannula Nasal Cannula Nasal Cannula O2 Flow Rate 2.0 2.0 2.0 2.0 04/30/18 04/30/18 04/30/18 04/30/18 03:00 04:00 04:00 05:00 Temp 97.7 97.7 Pulse 60 60 60 Resp 16 20 17 B/P (MAP) 104/60 (75) 109/61 (77) 124/60 (81) Pulse Ox 94 96 96 O2 Delivery Nasal Cannula Nasal Cannula Nasal Cannula Nasal Cannula O2 Flow Rate 2.0 2.0 2.0 2.0 04/30/18 04/30/18 04/30/18 04/30/18 06:00 07:00 07:09 08:00 Temp 97.7 97.7 Pulse 60 60 Resp 18 12 16 B/P (MAP) 109/61 (77) 128/68 (88) Pulse Ox 93 97 92 O2 Delivery Nasal Cannula Nasal Cannula Room Air Nasal Cannula O2 Flow Rate 2.0 2.0 2.0 04/30/18 04/30/18 08:00 09:00 Pulse 60 60 Resp 12 12 B/P (MAP) 109/63 (78) 109/54 (72) Pulse Ox 96 92 O2 Delivery Nasal Cannula Nasal Cannula O2 Flow Rate 2.0 2.0 Intake and Output 04/29/18 04/29/18 04/30/18 15:00 23:00 07:00 Intake Total 1098 ml 530 ml 360 ml Output Total 290 ml 1505 ml 670 ml Balance 808 ml -975 ml -310 ml NIKHIL NEWTON MD Apr 30, 2018 11:40
--- NOTE | 2018-04-30 14:39 | EKG ---
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
--- NOTE | 2018-04-30 16:19 | PDOC3 ---
Discharge Summary Date of Admission: Apr 28, 2018 Date of Discharge: Apr 30, 2018 Follow-Up: Other (appt given dr BROWN SEE DR SOLOMON SOON) Admitting Diagnosis comment: DISCHARGE DX Assessment/Plan impression complete heart block; ADMITTED ON on Dopamine. / external pacing Successful implantation of Biotronik dual-chamber permanent pacemaker for complete heart block and severe symptomatic bradycardia. 04/29 MORBID OBESITY HTN, HYPERLIPIDEMIA DM,II, hypothyroidism, POSSIBLE SLEEP APNEA plan d/c today f/u dr brown given icu bed transfer care to DR SOLOMON, NOTIFIED HOME MEDS ACCUCHECKS Patient was started on a dopamine drip.IN ER Post dopamine--- Heart rate improved 36 min d/c planning time Vitals Vitals Vital Signs Date Time Temp Pulse Resp B/P (MAP) Pulse Ox O2 Delivery O2 Flow Rate FiO2 04/30/18 09:00 60 12 109/54 (72) 92 Nasal Cannula 2.0 04/30/18 07:00 97.7 97.7 Physical Exam General: Alert, Oriented X3, Cooperative, No acute distress Heart: Normal S1, Normal S2, No murmurs, Other (paced with underlying CHB) Lungs: Clear Abdomen: Normal bowel sounds, Soft Extremities: No cyanosis Skin: No significant lesion, Other (incision dry, clean) Brief Hospital Course Ms. Ritter is a 67 old [sex] who presented with [ 3RD DEGREE HEART BLOCK] CONDITION AT DISCHARGE: Improved Discharge Medications Current Medications Sodium Chloride 1,000 ml @ 1,000 mls/hr 1X ONCE IV Last administered on at 01:30; Start 04/28/18 at 23:15; Stop 04/29/18 at 00:14; Status DC Midazolam HCl (Versed) 2 mg 1X ONCE NS Last administered on 04/28/18at 23:16; Start 04/28/18 at 23:15; Stop 04/28/18 at 23:16; Status DC Epinephrine HCl 4 mg/Sodium Chloride 254 ml @ 0 mls/hr CONT PRN IV SEE I/O RECORD; Start 04/28/18 at 23:45; Stop 04/28/18 at 23:45; Status DC Atropine Sulfate (ATROPINE 0.5mg SYRINGE) 0.5 mg 1X ONCE IV Last administered on 04/28/18at 23:28; Start 04/28/18 at 23:45; Stop 04/28/18 at 23:46; Status DC Atropine Sulfate (ATROPINE 0.5mg SYRINGE) 0.5 mg 1X ONCE IV Last administered on 04/28/18at 23:32; Start 04/28/18 at 23:45; Stop 04/28/18 at 23:46; Status DC Dopamine HCl/ Dextrose 250 ml @ 0 mls/hr 1X ONCE IV Last administered on at 00:00; Start 04/28/18 at 23:45; Stop 04/28/18 at 23:46; Status DC Ondansetron HCl (Zofran) 4 mg PRN Q8HRS PRN IV NAUSEA/VOMITING Last administered on 04/29/18at 11:40; Start 04/29/18 at 00:15; Stop 04/30/18 at 00:14 ; Status DC Morphine Sulfate (Morphine Sulfate) 2 mg PRN Q2HR PRN IV PAIN Last administered on 04/29/18at 11:30; Start 04/29/18 at 00:15; Stop 04/29/18 at 13:51 ; Status DC Fentanyl Citrate (Fentanyl 2ml Vial) 25 mcg 1X ONCE IV Last administered on 02/05at 02:43; Start 04/29/18 at 01:00; Stop 04/29/18 at 01:01; Status DC Midazolam HCl (Versed) 2 mg PRN Q2HR PRN IV ANXIETY / AGITATION Last administered on 04/29/18at 04:35; Start 04/29/18 at 04:15 Midazolam HCl (Versed) 5 mg STK-MED ONCE .ROUTE ; Start 04/29/18 at 09:37; Stop 04/29/18 at 09:38; Status DC Fentanyl Citrate (Fentanyl 5ml Vial) 250 mcg STK-MED ONCE .ROUTE ; Start at 09:38; Stop 04/29/18 at 09:39; Status DC Lidocaine/ Epinephrine (LIDOCAINE 2%-EPI 1:100,000 multi-dose) 20 ml STK-MED ONCE .ROUTE ; Start 04/29/18 at 09:54; Stop 04/29/18 at 09:55; Status DC Cefazolin Sodium/ Dextrose 50 ml @ As Directed STK-MED ONCE IV ; Start 04/29/18 at 09:54; Stop 04/29/18 at 09:55; Status DC Heparin Sodium/ Sodium Chloride (HEPARIN for ARTERIAL LINE FLUSH) 1,000 unit 1X ONCE IART Last administered on 04/29/18at 10:00; Start 04/29/18 at 10:00; Stop 04/29/18 at 10:11; Status DC Midazolam HCl (Versed) 5 mg 1X ONCE IV Last administered on 04/29/18at 10:00; Start 04/29/18 at 10:00; Stop 04/29/18 at 10:11; Status DC Fentanyl Citrate (Fentanyl 5ml Vial) 250 mcg 1X ONCE IV Last administered on at 10:00; Start 04/29/18 at 10:00; Stop 04/29/18 at 10:11; Status DC Lidocaine/ Epinephrine (LIDOCAINE 2%-EPI 1:100,000 multi-dose) 20 ml 1X ONCE IJ Last administered on 04/29/18at 10:00; Start 04/29/18 at 10:00; Stop at 10:11; Status DC Bacitracin 57294 unit/Sodium Chloride 250 ml @ 0 mls/hr 1X ONCE IRR Last administered on 04/29/18at 10:15; Start 04/29/18 at 10:15; Stop 04/29/18 at 10:16 ; Status DC Cefazolin Sodium/ Dextrose 50 ml @ 100 mls/hr 1X ONCE IV Last administered on 04/29/18at 10:00; Start 04/29/18 at 10:00; Stop 04/29/18 at 10:29; Status DC Midazolam HCl (Versed) 5 mg STK-MED ONCE .ROUTE ; Start 04/29/18 at 10:16; Stop 04/29/18 at 10:17; Status DC Fentanyl Citrate (Fentanyl 5ml Vial) 250 mcg STK-MED ONCE .ROUTE ; Start at 10:16; Stop 04/29/18 at 10:17; Status DC Info (No Anticoagulant Therapy) 1 ea CONT PRN PRN MC PER PROTOCOL; Start at 11:15 Cefazolin Sodium/ Dextrose 50 ml @ 100 mls/hr 1X ONCE IV Last administered on 04/29/18at 14:38; Start 04/29/18 at 16:00; Stop 04/29/18 at 16:29; Status DC Cyanocobalamin (Vitamin B-12) 1,000 mcg DAILY PO Last administered on 08:22; Start 04/29/18 at 14:00 Ergocalciferol (Vitamin D2) 50,000 unit WEEKLY PO Last administered on 14:37; Start 04/29/18 at 14:00 Oxycodone/ Acetaminophen (Percocet 10/325) 1 tab PRN Q8HRS PRN PO PAIN SEVERE Last administered on 04/30/18 13:57; Start 04/29/18 at 14:00 Triamterene/HCTZ (Maxzide 37.5/ 25mg) 1 tab DAILY PO Last administered on 08:33; Start 04/29/18 at 14:00 Non-Formulary Medication (Biotin ) 10,000 mcg DAILY PO ; Start 04/30/18 at 09:00 ; Status UNV Levothyroxine Sodium (Synthroid) 25 mcg DAILY06 PO Last administered on 07:08; Start 04/29/18 at 14:00 Metformin HCl (Glucophage) 1,000 mg BIDWMEALS PO Last administered on 08:22; Start 04/29/18 at 17:00 Pantoprazole Sodium (Protonix) 40 mg BIDAC PO Last administered on 04/30/18 07 :40; Start 04/29/18 at 16:30 Atorvastatin Calcium (Lipitor) 10 mg QHS PO Last administered on 04/29/18 20: 34; Start 04/29/18 at 21:00 Pregabalin (Lyrica) 150 mg BID PO Last administered on 04/30/18 08:21; Start 04/29/18 at 21:00 Ropinirole HCl (Requip) 0.5 mg QHS PO Last administered on 04/29/18 20:35; Start 04/29/18 at 21:00 Sertraline HCl (Zoloft) 100 mg DAILY PO Last administered on 04/30/18 08:22; Start 04/29/18 at 14:00 Insulin Human Lispro (HumaLOG) 0-5 UNITS TIDWMEALS SQ ; Start 04/29/18 at 18:30 Dextrose (Dextrose 50%-Water Syringe) 12.5 gm PRN Q15MIN PRN IV SEE COMMENTS; Start 04/29/18 at 18:00 Ibuprofen (Motrin) 400 mg PRN Q6HRS PRN PO INFLAMMATION Last administered on 02/05at 21:28; Start 04/29/18 at 21:30 Potassium Chloride (Klor-Con) 20 meq 1X ONCE PO Last administered on at 07:40; Start 04/30/18 at 07:30; Stop 04/30/18 at 07:39; Status DC Potassium Chloride (Klor-Con) 20 meq 1X ONCE PO Last administered on at 11:14; Start 04/30/18 at 11:00; Stop 04/30/18 at 11:01; Status DC Active Scripts Active Reported Requip (Ropinirole Hcl) 0.5 Mg Tablet 1 Tab PO QHS Lyrica (Pregabalin) 150 Mg Capsule 1 Cap PO BID Biotin 10,000 Mcg Capsule 10,000 Mcg PO DAILY B-12 (Cyanocobalamin (Vitamin B-12)) 1,000 Mcg Tablet 1,000 Mcg PO DAILY Levothyroxine Sodium 25 Mcg Tablet 1 Tab PO DAILY Vitamin D2 (Ergocalciferol (Vitamin D2)) 50,000 Unit Capsule 1 Cap PO WEEKLY Omeprazole 20 Mg Capsule.dr 20 Mg PO BID Triamterene-Hctz 37.5-25 Mg Tb (Triamterene/Hydrochlorothiazid) 1 Each Tablet 1 Tab PO DAILY Metformin Hcl 1,000 Mg Tablet 1,000 Mg PO BIDWMEALS Pravastatin Sodium 40 Mg Tablet 1 Tab PO DAILY Zoloft (Sertraline Hcl) 100 Mg Tablet 1 Tab PO DAILY Oxycodone-Acetaminophen 10-325 (Oxycodone Hcl/Acetaminophen) 1 Each Tablet 1 Each PO PRN Q8HRS PRN Vital Signs Vital Signs Date Time Temp Pulse Resp B/P (MAP) Pulse Ox O2 Delivery O2 Flow Rate FiO2 04/30/18 14:00 62 14 145/99 (114) 96 Nasal Cannula 2.0 04/30/18 12:00 97.9 97.9 Labs Laboratory Tests Test 04/28/18 23:20 04/28/18 23:27 04/29/18 01:57 04/29/18 02:45 White Blood Count 10.6 x10^3/uL (4.0-11.0) Red Blood Count 5.15 x10^6/uL (3.50-5.40) Hemoglobin 15.3 g/dL (12.0-15.5) Hematocrit 45.4 % (36.0-47.0) Mean Corpuscular Volume 88 fL (79-100) Mean Corpuscular Hemoglobin 30 pg (25-35) Mean Corpuscular Hemoglobin Concent 34 g/dL (31-37) Red Cell Distribution Width 14.1 % (11.5-14.5) Platelet Count 355 x10^3/uL (140-400) Neutrophils (%) (Auto) 66 % (31-73) Lymphocytes (%) (Auto) 25 % (24-48) Monocytes (%) (Auto) 7 % (0-9) Eosinophils (%) (Auto) 1 % (0-3) Basophils (%) (Auto) 1 % (0-3) Neutrophils # (Auto) 7.0 x10^3uL (1.8-7.7) Lymphocytes # (Auto) 2.7 x10^3/uL (1.0-4.8) Monocytes # (Auto) 0.8 x10^3/uL (0.0-1.1) Eosinophils # (Auto) 0.1 x10^3/uL (0.0-0.7) Basophils # (Auto) 0.1 x10^3/uL (0.0-0.2) Sodium Level 144 mmol/L (136-145) Potassium Level 3.6 mmol/L (3.5-5.1) Chloride Level 100 mmol/L (98-107) Carbon Dioxide Level 32 mmol/L (21-32) Anion Gap 12 (6-14) 17 mmol/L (6-14) Blood Urea Nitrogen 21 mg/dL (7-20) Creatinine 1.2 mg/dL (0.6-1.0) Estimated GFR (Cockcroft-Gault) 44.5 BUN/Creatinine Ratio 18 (6-20) Glucose Level 240 mg/dL (70-99) 223 mg/dL (70-99) Calcium Level 9.4 mg/dL (8.5-10.1) Magnesium Level 1.9 mg/dL (1.8-2.4) Total Bilirubin 0.5 mg/dL (0.2-1.0) Aspartate Amino Transf (AST/SGOT) 22 U/L (15-37) Alanine Aminotransferase (ALT/SGPT) 19 U/L (14-59) Alkaline Phosphatase 92 U/L (46-116) Troponin I Quantitative 0.046 ng/mL (0.000-0.055) 0.977 ng/mL (0.000-0.055) IL-Huj-K-Type Natriuretic Peptide 780 pg/mL (0-124) Total Protein 6.8 g/dL (6.4-8.2) Albumin 3.2 g/dL (3.4-5.0) Albumin/Globulin Ratio 0.9 (1.0-1.7) Bedside Hemoglobin 15.0 g/dL (12-15) Bedside Hematocrit 44 % (36-40) Bedside Sodium 140 mmol/L (135-145) Bedside Potassium 3.6 mmol/L (3.5-5.0) Bedside Chloride 96 mmol/L (98-110) Bedside Total CO2 31 mmol/L (23-32) Bedside Blood Urea Nitrogen 22 mg/dL (8-26) Bedside Creatinine 1.0 mg/dL (0.5-1.4) Bedside Ionized Calcium (Acacia) 1.14 mmol/L (1.13-1.32) Nasal Screen MRSA (PCR) Negative (Negative) Hemoglobin A1c 8.0 % (4.8-5.6) Triglycerides Level 247 mg/dL (0-150) Cholesterol Level 172 mg/dL (0-200) LDL Cholesterol, Calculated 85 mg/dL (0-100) VLDL Cholesterol, Calculated 49 mg/dL (0-40) Non-HDL Cholesterol Calculated 134 mg/dL (0-129) HDL Cholesterol 38 mg/dL (40-60) Cholesterol/HDL Ratio 4.5 Thyroid Stimulating Hormone (TSH) 1.918 uIU/mL (0.358-3.74) Test 04/29/18 09:20 04/29/18 17:43 04/29/18 18:40 04/30/18 04:15 Prothrombin Time 13.0 SEC (11.7-14.0) Prothromb Time International Ratio 1.0 (0.8-1.1) Troponin I Quantitative 1.094 ng/mL (0.000-0.055) 0.644 ng/mL (0.000-0.055) Glucose (Fingerstick) 232 mg/dL (70-99) White Blood Count 7.1 x10^3/uL (4.0-11.0) Red Blood Count 4.48 x10^6/uL (3.50-5.40) Hemoglobin 13.5 g/dL (12.0-15.5) Hematocrit 39.0 % (36.0-47.0) Mean Corpuscular Volume 87 fL (79-100) Mean Corpuscular Hemoglobin 30 pg (25-35) Mean Corpuscular Hemoglobin Concent 35 g/dL (31-37) Red Cell Distribution Width 13.9 % (11.5-14.5) Platelet Count 226 x10^3/uL (140-400) Neutrophils (%) (Auto) 65 % (31-73) Lymphocytes (%) (Auto) 26 % (24-48) Monocytes (%) (Auto) 7 % (0-9) Eosinophils (%) (Auto) 1 % (0-3) Basophils (%) (Auto) 1 % (0-3) Neutrophils # (Auto) 4.6 x10^3uL (1.8-7.7) Lymphocytes # (Auto) 1.9 x10^3/uL (1.0-4.8) Monocytes # (Auto) 0.5 x10^3/uL (0.0-1.1) Eosinophils # (Auto) 0.1 x10^3/uL (0.0-0.7) Basophils # (Auto) 0.1 x10^3/uL (0.0-0.2) Sodium Level 143 mmol/L (136-145) Potassium Level 3.0 mmol/L (3.5-5.1) Chloride Level 102 mmol/L (98-107) Carbon Dioxide Level 32 mmol/L (21-32) Anion Gap 9 (6-14) Blood Urea Nitrogen 18 mg/dL (7-20) Creatinine 1.0 mg/dL (0.6-1.0) Estimated GFR (Cockcroft-Gault) 55.0 BUN/Creatinine Ratio 18 (6-20) Glucose Level 154 mg/dL (70-99) Calcium Level 8.5 mg/dL (8.5-10.1) Total Bilirubin 0.5 mg/dL (0.2-1.0) Aspartate Amino Transf (AST/SGOT) 17 U/L (15-37) Alanine Aminotransferase (ALT/SGPT) 14 U/L (14-59) Alkaline Phosphatase 79 U/L (46-116) Total Protein 6.0 g/dL (6.4-8.2) Albumin 2.7 g/dL (3.4-5.0) Albumin/Globulin Ratio 0.8 (1.0-1.7) Test 04/30/18 12:14 04/30/18 15:05 Glucose (Fingerstick) 139 mg/dL (70-99) Potassium Level 3.3 mmol/L (3.5-5.1) Laboratory Tests Test 04/29/18 17:43 04/29/18 18:40 04/30/18 04:15 04/30/18 12:14 Glucose (Fingerstick) 232 mg/dL (70-99) 139 mg/dL (70-99) Troponin I Quantitative 0.644 ng/mL (0.000-0.055) White Blood Count 7.1 x10^3/uL (4.0-11.0) Red Blood Count 4.48 x10^6/uL (3.50-5.40) Hemoglobin 13.5 g/dL (12.0-15.5) Hematocrit 39.0 % (36.0-47.0) Mean Corpuscular Volume 87 fL (79-100) Mean Corpuscular Hemoglobin 30 pg (25-35) Mean Corpuscular Hemoglobin Concent 35 g/dL (31-37) Red Cell Distribution Width 13.9 % (11.5-14.5) Platelet Count 226 x10^3/uL (140-400) Neutrophils (%) (Auto) 65 % (31-73) Lymphocytes (%) (Auto) 26 % (24-48) Monocytes (%) (Auto) 7 % (0-9) Eosinophils (%) (Auto) 1 % (0-3) Basophils (%) (Auto) 1 % (0-3) Neutrophils # (Auto) 4.6 x10^3uL (1.8-7.7) Lymphocytes # (Auto) 1.9 x10^3/uL (1.0-4.8) Monocytes # (Auto) 0.5 x10^3/uL (0.0-1.1) Eosinophils # (Auto) 0.1 x10^3/uL (0.0-0.7) Basophils # (Auto) 0.1 x10^3/uL (0.0-0.2) Sodium Level 143 mmol/L (136-145) Potassium Level 3.0 mmol/L (3.5-5.1) Chloride Level 102 mmol/L (98-107) Carbon Dioxide Level 32 mmol/L (21-32) Anion Gap 9 (6-14) Blood Urea Nitrogen 18 mg/dL (7-20) Creatinine 1.0 mg/dL (0.6-1.0) Estimated GFR (Cockcroft-Gault) 55.0 BUN/Creatinine Ratio 18 (6-20) Glucose Level 154 mg/dL (70-99) Calcium Level 8.5 mg/dL (8.5-10.1) Total Bilirubin 0.5 mg/dL (0.2-1.0) Aspartate Amino Transf (AST/SGOT) 17 U/L (15-37) Alanine Aminotransferase (ALT/SGPT) 14 U/L (14-59) Alkaline Phosphatase 79 U/L (46-116) Total Protein 6.0 g/dL (6.4-8.2) Albumin 2.7 g/dL (3.4-5.0) Albumin/Globulin Ratio 0.8 (1.0-1.7) Test 04/30/18 15:05 Potassium Level 3.3 mmol/L (3.5-5.1) Allergies Allergies Coded Allergies Type Severity Reaction Last Updated Verified No Known Drug Allergies 01/12/17 No Disposition/Orders: D/C to Home Patient Instructions D/C PLANNING 36 MIN NIKHIL NEWTON MD Apr 30, 2018 16:19
--- NOTE | 2018-04-30 16:21 | DISCH ---
DISCHARGE INSTRUCTIONS Condition on Discharge Condition on Discharge: Stable Activity After Discharge Activity Instructions for Disc: Activity as tolerated Bathing Instructions: No Tub Bath until see Exercise Instruction after Dis: Walk 10 min, 3 x per day Driving Instructions after Dis: Do not drive Diet after Discharge Diet after Discharge: Cardiac Wound Incision Care Wound/Incision Care: Reinforce dressing PRN Contacting the DRAndrés after DC Call your doctor for: If your condition worsens NIKHIL NEWTON MD Apr 30, 2018 16:21
--- NOTE | 2018-04-30 17:16 | PDOC ---
PROGRESS NOTES Subjective Subjective Patient feeling better. Objective Objective Vital Signs Date Time Temp Pulse Resp B/P (MAP) Pulse Ox O2 Delivery O2 Flow Rate FiO2 04/30/18 16:00 Nasal Cannula 2.0 04/30/18 16:00 63 14 122/91 (101) 96 04/30/18 12:00 97.9 97.9 Intake and Output 04/30/18 07:00 Intake Total 1988 ml Output Total 2465 ml Balance -477 ml Intake Oral 1590 ml IV Total 398 ml Output Urine Total 2465 ml Physical Exam Abdomen: Normal bowel sounds, Soft Heart: Normal S1, Normal S2, No murmurs, Other (paced with underlying CHB) Extremities: No cyanosis General: Alert, Oriented X3, Cooperative, No acute distress HEENT: PERRLA Lungs: Clear to auscultation MUSCULOSKELETAL: Osteoarthritic changes both hands Neuro: Normal speech, Cranial nerves 3-12 NL Psych/Mental Status: Mental status NL, Mood NL Skin: No significant lesion, Other (incision dry, clean) Assessment Assessment 1. Complete heart block with severe symptomatic bradycardia s/p permanent pacemaker implantation. Incision looks good. Chest x-ray without any pneumothorax. 2-D echo showed normal LV systolic function. Device interrogation showed normal function. Okay for discharge from cardiac standpoint. 2. Accelerated hypertension: Better controlled 3. Hyperlipidemia: Statins 4. DM2: Treat per IM Follow-up with our office in 2 weeks for wound check Comment Review of Relevant I have reviewed the following items andrés (where applicable) has been applied. Labs Laboratory Tests Test 04/29/18 17:43 04/29/18 18:40 04/30/18 04:15 04/30/18 12:14 Glucose (Fingerstick) 232 mg/dL (70-99) 139 mg/dL (70-99) Troponin I Quantitative 0.644 ng/mL (0.000-0.055) White Blood Count 7.1 x10^3/uL (4.0-11.0) Red Blood Count 4.48 x10^6/uL (3.50-5.40) Hemoglobin 13.5 g/dL (12.0-15.5) Hematocrit 39.0 % (36.0-47.0) Mean Corpuscular Volume 87 fL (79-100) Mean Corpuscular Hemoglobin 30 pg (25-35) Mean Corpuscular Hemoglobin Concent 35 g/dL (31-37) Red Cell Distribution Width 13.9 % (11.5-14.5) Platelet Count 226 x10^3/uL (140-400) Neutrophils (%) (Auto) 65 % (31-73) Lymphocytes (%) (Auto) 26 % (24-48) Monocytes (%) (Auto) 7 % (0-9) Eosinophils (%) (Auto) 1 % (0-3) Basophils (%) (Auto) 1 % (0-3) Neutrophils # (Auto) 4.6 x10^3uL (1.8-7.7) Lymphocytes # (Auto) 1.9 x10^3/uL (1.0-4.8) Monocytes # (Auto) 0.5 x10^3/uL (0.0-1.1) Eosinophils # (Auto) 0.1 x10^3/uL (0.0-0.7) Basophils # (Auto) 0.1 x10^3/uL (0.0-0.2) Sodium Level 143 mmol/L (136-145) Potassium Level 3.0 mmol/L (3.5-5.1) Chloride Level 102 mmol/L (98-107) Carbon Dioxide Level 32 mmol/L (21-32) Anion Gap 9 (6-14) Blood Urea Nitrogen 18 mg/dL (7-20) Creatinine 1.0 mg/dL (0.6-1.0) Estimated GFR (Cockcroft-Gault) 55.0 BUN/Creatinine Ratio 18 (6-20) Glucose Level 154 mg/dL (70-99) Calcium Level 8.5 mg/dL (8.5-10.1) Total Bilirubin 0.5 mg/dL (0.2-1.0) Aspartate Amino Transf (AST/SGOT) 17 U/L (15-37) Alanine Aminotransferase (ALT/SGPT) 14 U/L (14-59) Alkaline Phosphatase 79 U/L (46-116) Total Protein 6.0 g/dL (6.4-8.2) Albumin 2.7 g/dL (3.4-5.0) Albumin/Globulin Ratio 0.8 (1.0-1.7) Test 04/30/18 15:05 Potassium Level 3.3 mmol/L (3.5-5.1) Medications Current Medications Atorvastatin Calcium (Lipitor) 10 mg QHS PO Last administered on 04/29/18at 20: 34; Start 04/29/18 at 21:00 Dextrose (Dextrose 50%-Water Syringe) 12.5 gm PRN Q15MIN PRN IV SEE COMMENTS; Start 04/29/18 at 18:00 Ibuprofen (Motrin) 400 mg PRN Q6HRS PRN PO INFLAMMATION Last administered on 02/05at 21:28; Start 04/29/18 at 21:30 Insulin Human Lispro (HumaLOG) 0-5 UNITS TIDWMEALS SQ ; Start 04/29/18 at 18:30 Non-Formulary Medication (Biotin ) 10,000 mcg DAILY PO ; Start 04/30/18 at 09:00 ; Status UNV Potassium Chloride (Klor-Con) 20 meq 1X ONCE PO Last administered on at 07:40; Start 04/30/18 at 07:30; Stop 04/30/18 at 07:39; Status DC Potassium Chloride (Klor-Con) 20 meq 1X ONCE PO Last administered on at 11:14; Start 04/30/18 at 11:00; Stop 04/30/18 at 11:01; Status DC Potassium Chloride (Klor-Con) 20 meq 1X ONCE PO ; Start 04/30/18 at 17:15; Stop 04/30/18 at 17:16; Status DC Pregabalin (Lyrica) 150 mg BID PO Last administered on 04/30/18at 08:21; Start 04/29/18 at 21:00 Ropinirole HCl (Requip) 0.5 mg QHS PO Last administered on 04/29/18at 20:35; Start 04/29/18 at 21:00 Vitals/I & O Vital Sign - Last 24 Hours 04/29/18 04/29/18 04/29/18 04/29/18 18:00 19:00 20:00 20:00 Temp 97.4 97.4 Pulse 68 69 64 Resp 20 18 20 B/P (MAP) 152/58 (89) 109/62 (78) 119/52 (74) Pulse Ox 96 94 97 O2 Delivery Nasal Cannula Nasal Cannula Nasal Cannula Nasal Cannula O2 Flow Rate 3.0 3.0 3.0 3.0 04/29/18 04/29/18 04/29/18 04/29/18 21:00 22:00 23:00 23:07 Pulse 62 65 60 Resp 14 20 15 17 B/P (MAP) 110/59 (76) 130/61 (84) 83/52 (62) Pulse Ox 95 96 95 95 O2 Delivery Nasal Cannula Nasal Cannula Nasal Cannula Nasal Cannula O2 Flow Rate 3.0 3.0 2.0 3.0 04/30/18 04/30/18 04/30/18 04/30/18 00:00 00:00 00:15 01:00 Temp 98.0 98.0 Pulse 60 60 Resp 16 16 15 B/P (MAP) 110/58 (75) 115/59 (77) Pulse Ox 95 95 96 O2 Delivery Nasal Cannula Nasal Cannula Nasal Cannula Nasal Cannula O2 Flow Rate 2.0 2.0 2.0 2.0 04/30/18 04/30/18 04/30/18 04/30/18 02:00 03:00 04:00 04:00 Temp 97.7 97.7 Pulse 60 60 60 Resp 20 16 20 B/P (MAP) 108/55 (72) 104/60 (75) 109/61 (77) Pulse Ox 95 94 96 O2 Delivery Nasal Cannula Nasal Cannula Nasal Cannula Nasal Cannula O2 Flow Rate 2.0 2.0 2.0 2.0 04/30/18 04/30/18 04/30/18 04/30/18 05:00 06:00 07:00 07:09 Temp 97.7 97.7 Pulse 60 60 60 Resp 17 18 12 16 B/P (MAP) 124/60 (81) 109/61 (77) 128/68 (88) Pulse Ox 96 93 97 92 O2 Delivery Nasal Cannula Nasal Cannula Nasal Cannula Room Air O2 Flow Rate 2.0 2.0 2.0 04/30/18 04/30/18 04/30/18 04/30/18 08:00 08:00 09:00 10:00 Pulse 60 60 61 Resp 12 12 12 B/P (MAP) 109/63 (78) 109/54 (72) 117/64 (81) Pulse Ox 96 92 92 O2 Delivery Nasal Cannula Nasal Cannula Nasal Cannula Nasal Cannula O2 Flow Rate 2.0 2.0 2.0 2.0 3/13/04/30/18 04/30/18 04/30/18 11:00 12:00 12:00 13:00 Temp 97.9 97.9 Pulse 61 62 60 Resp 16 16 14 B/P (MAP) 134/73 (93) 120/75 (90) 131/67 (88) Pulse Ox 95 96 96 O2 Delivery Nasal Cannula Nasal Cannula Nasal Cannula Nasal Cannula O2 Flow Rate 2.0 2.0 2.0 2.0 04/30/18 04/30/18 04/30/18 04/30/18 14:00 15:00 16:00 16:00 Pulse 62 62 63 Resp 14 14 14 B/P (MAP) 145/99 (114) 145/83 (103) 122/91 (101) Pulse Ox 96 98 96 O2 Delivery Nasal Cannula Nasal Cannula Nasal Cannula Nasal Cannula O2 Flow Rate 2.0 2.0 2.0 2.0 Intake and Output 04/29/18 04/29/18 04/30/18 15:00 23:00 07:00 Intake Total 1098 ml 530 ml 360 ml Output Total 290 ml 1505 ml 670 ml Balance 808 ml -975 ml -310 ml KASSIE ROBERTSON MD Apr 30, 2018 17:16
== END 2018-04-30 17:45 | disposition home or self-care (01) | DRG 242 ==
LOC: ER 22:57 → 1 WEST ICU 23:51
PROVIDERS: ADMIT Internal Medicine; ATTEND Family Medicine
PROC: 0JH606Z Insertion of Pacemaker, Dual Chamber into Chest Subcutaneous Tissue and Fascia, Open Approach (ICD-10-PCS; principal; 2018-04-29)
PROC: 02HK3JZ Insertion of Pacemaker Lead into Right Ventricle, Percutaneous Approach (ICD-10-PCS; 2018-04-29)
PROC: 02H63JZ Insertion of Pacemaker Lead into Right Atrium, Percutaneous Approach (ICD-10-PCS; 2018-04-29)
DX: I44.2 Atrioventricular block, complete (principal); J96.00 Acute respiratory failure, unspecified whether with hypoxia or hypercapnia; Z68.42 Body mass index [BMI] 45.0-49.9, adult; I49.5 Sick sinus syndrome; K21.9 Gastro-esophageal reflux disease without esophagitis; I10 Essential (primary) hypertension; E78.00 Pure hypercholesterolemia, unspecified; E03.9 Hypothyroidism, unspecified; E11.42 Type 2 diabetes mellitus with diabetic polyneuropathy; F41.9 Anxiety disorder, unspecified; F32.9 Major depressive disorder, single episode, unspecified; G47.30 Sleep apnea, unspecified; M19.90 Unspecified osteoarthritis, unspecified site; E78.5 Hyperlipidemia, unspecified; E66.01 Morbid (severe) obesity due to excess calories; M79.7 Fibromyalgia; Z86.73 Personal history of transient ischemic attack (TIA), and cerebral infarction without residual deficits; Z83.3 Family history of diabetes mellitus; Z82.49 Family history of ischemic heart disease and other diseases of the circulatory system; Z90.49 Acquired absence of other specified parts of digestive tract
CPT/HCPCS: 33208; 36415; 71045; 80047; 80053; 80061; 82962; 83036; 83735; 83880; 84132; 84443; 84484; 85025; 85610; 87641; 93005; 93306; 96365; 96366; 96375; 99152; 99153; C1785; C1898; J0461; J0696; J1265; J1644; J1815; J2250; J2270; J2405; J3010; J3490; J7030; J7050; 99285-25

== ENCOUNTER → 2018-05-15 | Outpatient (CLI) | payer MEDICARE ==
[2018-04-30 16:00] VITALS: BP 122/91
[~2018-05-15] MED LIST changes: +BIOT10005 PO; +CYAN100072 PO; +DICY10CA3 PO; +ERGO500027 PO; +LEVO25TA4 PO; +LEVO50TA PO; +METF10007 PO; +NITR100C62 PO; +OMEP20CA10 PO; +OXYC-411 PO; +PIOG15TA42 PO; +PRAV40TA2 PO; +PREG150C PO; +ROPI0.5T PO; +SERT100T PO; +TRIA1TAB3 PO
--- NOTE | 2018-05-16 15:02 | RAD ---
MR#: [id number] Date of Study: 05/15/2018 Ordering Physician: MIGUEL ALFONSO, Referring Physician: MIGUEL ALFONSO, Tech: APPROVED REPORT Left Upper Extremity Venous Study for DVT, DVT. Patient Location: OUT-PATIENT Indications Upper Extremity Pain: PACEMAKER ON LEFT Risk Factors Obesity Findings Grayscale images of the left internal jugular, subclavian, axillary, proximal brachial and cephalic v eins do not reveal any obvious evidence of thrombus. The veins appear to be compressible. Normal spec tral waveforms are noted. The mid to distal brachial and radial veins are not well visualized but no gross evidence of DVT is noted. Critical Notification Critical Value: No <Conclusion> 1. No significant evidence of upper extremity DVT on the left side. Signed by : Galo Garcia, Electronically Approved : 05/16/2018 15:01:57
== END | disposition home or self-care (01) ==
LOC: US 14:01
PROVIDERS: ATTEND Nurse Practitioner
DX: M79.622 Pain in left upper arm (principal); Z95.0 Presence of cardiac pacemaker
CPT/HCPCS: 93971

== ENCOUNTER 2018-05-28 22:11 | Inpatient (IN) | payer MEDICARE ==
[~2018-05-28] VITALS: Ht 160 cm; Wt 115.7 kg
[~2018-05-28 22:11] MED LIST changes: -DICY10CA3 PO; -LEVO50TA PO; -NITR100C62 PO; -PIOG15TA42 PO
[2018-05-28 22:56] LABS: BASO # 0.1 x10^3/uL (0.0-0.2); BASO % 1 % (0-3); BILIRUBIN,URINE NEGATIVE (NEG); CLARITY,URINE CLEAR; COLOR,URINE YELLOW; EOS # 0.1 x10^3/uL (0.0-0.7); EOS % 1 % (0-3); HEMATOCRIT 44.9 % (36.0-47.0); HEMOGLOBIN 15.2 g/dL (12.0-15.5); LYMPH # 1.4 x10^3/uL (1.0-4.8); LYMPH % 28 % (24-48); MEAN CORPUSCULAR HEMOGLOBIN 30 pg (25-35); MEAN CORPUSCULAR HGB CONC 34 g/dL (31-37); MEAN CORPUSCULAR VOLUME 87 fL (79-100); MONO # 0.4 x10^3/uL (0.0-1.1); MONO % 7 % (0-9); NEUT # 3.2 x10^3uL (1.8-7.7); NEUT % 63 % (31-73); NITRITE,URINE POSITIVE (NEG); PLATELET COUNT 248 x10^3/uL (140-400); PROTEIN,URINE NEGATIVE (NEG-TRACE); RED BLOOD COUNT 5.14 x10^6/uL (3.50-5.40); RED CELL DISTRIBUTION WIDTH 14.2 % (11.5-14.5); WHITE BLOOD COUNT 5.1 x10^3/uL (4.0-11.0)
[2018-05-28 23:01] LABS: BACTERIA,URINE MANY /HPF (0-FEW); RBC,URINE 0 /HPF (0-2); SQUAMOUS EPITHELIAL CELL,UR FEW /LPF
[2018-05-28 23:02] LABS: HYALINE CASTS, URINE MODERATE /HPF
--- NOTE | 2018-05-28 23:11 | PHYS DOC ---
Past Medical History Past Medical History: Diabetes-Type II, Fibromyalgia, GERD, High Cholesterol, Hypertension, Hypothyroid Past Surgical History: Cholecystectomy Additional Past Surgical Histo: R WRIST, BX ELBOW, R KNEE, HERNIA Alcohol Use: None Drug Use: None Adult General Chief Complaint Chief Complaint: SYNCOPE HPI HPI 67-year-old female presents to ER via EMS from her home following a syncope episode. Patient states she was just finishing her bath and was walking when all of a sudden she became lightheaded and felt she was going to pass out. Patient's Lauro at bedside states patient did not fall but did go unresponsive for 30-45 seconds. He reports he was able to assist patient to a chair denies that she struck her head. Patient is denying any head, neck, or back pain. She denies incontinence of bowel or bladder during the event. She reports she has been feeling fatigued the past few days- denies CP, palpitations , abd pain, N/V/D, flu like illness, or urinary sxs. Review of Systems Review of Systems Constitutional: Denies fever or chills. Reports generalized fatigue Eyes: Denies change in visual acuity, redness, or eye pain [] HENT: Denies nasal congestion or sore throat [] Respiratory: Denies cough or shortness of breath [] Cardiovascular: Denies CP/palpitations GI: Denies abdominal pain, nausea, vomiting, bloody stools or diarrhea [] : Denies dysuria or hematuria [] Musculoskeletal: Denies back/neck pain or joint pain [] Integument: Denies rash or skin lesions [] Neurologic: Denies headache, focal weakness or sensory changes. Reports syncope episode at home- states she felt lightheaded and became diaphoretic during onset of sxs with some nausea. Endocrine: Denies polyuria or polydipsia [] All other systems were reviewed and found to be within normal limits, except as documented in this note. Current Medications Current Medications Current Medications Medications (Trade) Dose Ordered Sig/Vanda Start Time Stop Time Status Last Admin Dose Admin Potassium Chloride (Klor-Con) 40 meq 1X ONCE 05/28/18 23:45 05/28/18 23:46 DC 05/28/18 23:45 40 MEQ Sodium Chloride 500 ml @ 500 mls/hr 1X ONCE 05/28/18 23:15 05/29/18 00:14 DC 05/28/18 23:16 500 MLS/HR Allergies Allergies Allergies Coded Allergies Type Severity Reaction Last Updated Verified No Known Drug Allergies 01/12/17 No Physical Exam Physical Exam Constitutional: Well developed, well nourished, no acute distress, non-toxic appearance. Clear speech HENT: Normocephalic, atraumatic, bilateral ears normal, mucous membranes pink/ dry, no oral exudates, nose normal. [] Eyes: 3mm PERRLA, no nystagmus, conjunctiva normal, no discharge. [] Neck: Normal range of motion, no tenderness, supple, no stridor. [] Cardiovascular: Heart rate regular rhythm, no murmur [] Lungs & Thorax: Bilateral breath sounds clear to auscultation- resp. equal/ nonlabored. Lt upper chest pacemaker site with steri strips- no crepitus/ swelling/erythema at site Abdomen: Bowel sounds normal, soft/obese, no tenderness, no masses, no pulsatile masses. [] Skin: Warm, dry, no erythema, no rash. [] Back: No tenderness, no CVA tenderness. [] Extremities: No tenderness, no cyanosis, no clubbing, ROM intact, 1+ bilat. nonpitting pedal edema Neurologic: Alert and oriented X 3, normal motor function, normal sensory function, no focal deficits noted. [] Psychologic: Affect normal, judgement normal, mood normal. [] Current Patient Data Vital Signs Vital Signs Date Time Temp Pulse Resp B/P (MAP) Pulse Ox O2 Delivery O2 Flow Rate FiO2 05/28/18 22:11 98.0 78 19 164/93 (116) 100 Room Air 98.0 Lab Values Laboratory Tests Test 05/28/18 22:40 White Blood Count 5.1 x10^3/uL (4.0-11.0) Red Blood Count 5.14 x10^6/uL (3.50-5.40) Hemoglobin 15.2 g/dL (12.0-15.5) Hematocrit 44.9 % (36.0-47.0) Mean Corpuscular Volume 87 fL (79-100) Mean Corpuscular Hemoglobin 30 pg (25-35) Mean Corpuscular Hemoglobin Concent 34 g/dL (31-37) Red Cell Distribution Width 14.2 % (11.5-14.5) Platelet Count 248 x10^3/uL (140-400) Neutrophils (%) (Auto) 63 % (31-73) Lymphocytes (%) (Auto) 28 % (24-48) Monocytes (%) (Auto) 7 % (0-9) Eosinophils (%) (Auto) 1 % (0-3) Basophils (%) (Auto) 1 % (0-3) Neutrophils # (Auto) 3.2 x10^3uL (1.8-7.7) Lymphocytes # (Auto) 1.4 x10^3/uL (1.0-4.8) Monocytes # (Auto) 0.4 x10^3/uL (0.0-1.1) Eosinophils # (Auto) 0.1 x10^3/uL (0.0-0.7) Basophils # (Auto) 0.1 x10^3/uL (0.0-0.2) Urine Collection Type U cath Urine Color Yellow Urine Clarity Clear Urine pH 6.0 Urine Specific [place] 1.015 Urine Protein Negative mg/dL (NEG-TRACE) Urine Glucose (UA) 500 mg/dL (NEG) Urine Ketones (Stick) Negative mg/dL (NEG) Urine Blood Negative (NEG) Urine Nitrite Positive (NEG) Urine Bilirubin Negative (NEG) Urine Urobilinogen Dipstick 1.0 mg/dL (0.2 mg/dL) Urine Leukocyte Esterase Small (NEG) Urine RBC 0 /HPF (0-2) Urine WBC 1-4 /HPF (0-4) Urine Squamous Epithelial Cells Few /LPF Urine Bacteria Many /HPF (0-FEW) Urine Hyaline Casts Moderate /HPF Sodium Level 139 mmol/L (136-145) Potassium Level 2.9 mmol/L (3.5-5.1) *L Chloride Level 98 mmol/L (98-107) Carbon Dioxide Level 31 mmol/L (21-32) Anion Gap 10 (6-14) Blood Urea Nitrogen 17 mg/dL (7-20) Creatinine 1.0 mg/dL (0.6-1.0) Estimated GFR (Cockcroft-Gault) 55.0 BUN/Creatinine Ratio 17 (6-20) Glucose Level 274 mg/dL (70-99) H Calcium Level 9.2 mg/dL (8.5-10.1) Magnesium Level 1.8 mg/dL (1.8-2.4) Total Bilirubin 0.5 mg/dL (0.2-1.0) Aspartate Amino Transferase (AST) 13 U/L (15-37) L Alanine Aminotransferase (ALT) 14 U/L (14-59) Alkaline Phosphatase 98 U/L (46-116) Troponin I Quantitative < 0.017 ng/mL (0.000-0.055) Total Protein 7.0 g/dL (6.4-8.2) Albumin 3.3 g/dL (3.4-5.0) L Albumin/Globulin Ratio 0.9 (1.0-1.7) L Laboratory Tests 05/28/18 22:40 Laboratory Tests 05/28/18 22:40 EKG EKG EKG obtained 05/28/18 at 2218 Interpreted by ER physician Paced rhythm Rate 80 No STEMI Radiology/Procedures Radiology/Procedures [] Course & Med Decision Making Course & Med Decision Making Pertinent Labs and Imaging studies reviewed. (See chart for details) 0006: Spoke with Dr. Mejias, bank credit card collection clerk doctor for patient's primary care physician and discussed patient's case and admit plan. Patient had potassium of 2.9 and was provided with 40 mEq oral supplement while in the ER. EKG with paced rhythm - no acute STEMI and troponin <0.017. Chest xray was viewed by Dr. Franklin with no obvious acute findings. Pt had UA showing small leuks positive nitrates with 1-4 WBCs on micro-and so was given dose of IV Rocephin while in the ER. Patient reports following normal saline fluid bolus 500 mL she was feeling better than at time of arrival. She is sitting up in no visible distress denying any chest pain, dizziness, or shortness of air. Test results were discussed with patient and her along with admit plan. Patient is agreeable with admit plan. Dragon Disclaimer Dragon Disclaimer This electronic medical record was generated, in whole or in part, using a voice recognition dictation system. Departure Departure Referrals: HONEY SOLOMON MD (PCP) YARI SAUCEDO APRN May 28, 2018 23:11
[2018-05-28 23:14] LABS: ALBUMIN 3.3 g/dL (3.4-5.0); ALBUMIN/GLOBULIN RATIO 0.9 (1.0-1.7); CALCIUM 9.2 mg/dL (8.5-10.1); MAGNESIUM 1.8 mg/dL (1.8-2.4); TOTAL BILIRUBIN 0.5 mg/dL (0.2-1.0)
[2018-05-28] MEDS ORDERED: IV NORMAL SALINE 500ML BAG 500 ML IV ONE (23:15)
[2018-05-28 23:29] LABS: POTASSIUM 2.9 mmol/L (3.5-5.1)
[2018-05-28] MEDS ORDERED: POTASSIUM CHLORIDE 20 MEQ TABLET.ER. PO ONE (23:45)
[2018-05-29] MEDS ORDERED: cefTRIAXone IV Push 1 GM VIAL. IVP ONE (00:30)
[2018-05-29] MEDS ORDERED: POTASSIUM CHLORIDE 20 MEQ TABLET.ER. PO ONE ×2 (00:30→10:45)
[2018-05-29] MEDS ORDERED: HYDROcodone/APAP 5/325MG 1 TAB TABLET PO ONE (01:00)
[2018-05-29 03:00] VITALS: BP 156/60
[2018-05-29] MEDS: PREGABALIN 75 MG CAPSULE PO SCH ×2 (06:55→20:06)
[2018-05-29 07:00] VITALS: BP 149/68
--- NOTE | 2018-05-29 07:10 | EKG ---
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
--- NOTE | 2018-05-29 07:57 | RAD ---
Chest radiograph 05/28/2018 10:40 PM INDICATION: Syncope COMPARISON: April 30, 2018 TECHNIQUE: Portable upright frontal view of the chest is provided. FINDINGS: The cardiomediastinal silhouette is within normal limits. Left chest wall cardiac device is in similar position. There are no pleural effusions. There is no pulmonary vascular congestion. There is no pneumothorax. The lungs are clear. Bilateral hilar prominence appears similar with calcified right hilar lymphadenopathy. No significant osseous abnormality is identified. IMPRESSION: No acute cardiopulmonary process. Electronically signed by: Florina Mauro MD (05/29/2018 7:54 AM) [id number]
[2018-05-29] MEDS ORDERED: DICYCLOMINE HCL 10 MG CAPSULE PO PRN (08:00)
[2018-05-29] MEDS ORDERED: DEXTROSE 50% 25 GM / 50ML DISP.SYRIN. IV PRN (08:15)
--- NOTE | 2018-05-29 08:15 | PDOC1 ---
History and Physical Date of Admission Date of Admission 05/29/18 Identification/Chief Complaint Chief Complaint Syncope Source Source: Patient History of Present Illness History of Present Illness Pt states that shortly getting out of the shower last night she had a sudden sinking feeling in her chest and passed out. Denies dizziness. was in the middle of helping her get to her scooter and was able to lay her down without her falling and hitting her head. says that she was out for about 30 seconds. He called 911 and pt was brought to the ER. Says that she has been doing fairly well. Had a syncopal event about a month ago and had a pacemaker placed at that time; follows with Dr. Benitze. Past Medical History Cardiovascular: HTN, Hyperlipidemia Pulmonary: Pneumonia CENTRAL NERVOUS SYSTEM: Periperal neuropathy, TIA GI: GERD Heme/Onc: No pertinent hx Hepatobiliary: No pertinent hx Psych: Anxiety, Depression Rheumatologic: Fibromyalgia Infectious disease: No pertinent hx ENT: No pertinent hx Renal/: UTI Endocrine: Diabetes, Hypothyroidism Dermatology: No pertinent hx Past Surgical History Past Surgical History: Cholecystectomy, Hernia Repair, Other Family History Family History: Diabetes, Hypertension Social History Smoke: No ALCOHOL: none Drugs: None Current Medications Current Medications Current Medications Medications (Trade) Dose Ordered Sig/Vanda Start Time Stop Time Status Last Admin Dose Admin Acetaminophen/ Hydrocodone Bitart (Lortab 5/325) 1 tab 1X ONCE 05/29/18 01:00 05/29/18 01:01 DC 05/29/18 01:43 1 TAB Ceftriaxone Sodium (Rocephin) 1 gm 1X ONCE 05/29/18 00:30 05/29/18 00:31 DC 05/29/18 00:49 1 GM Potassium Chloride (Klor-Con) 40 meq 1X ONCE 05/29/18 00:30 05/29/18 00:41 DC Pregabalin (Lyrica) 150 mg BID 05/29/18 07:00 05/29/18 06:55 150 MG Sodium Chloride 500 ml @ 500 mls/hr 1X ONCE 05/28/18 23:15 05/29/18 00:14 DC 05/28/18 23:16 500 MLS/HR Allergies Allergies Allergies Coded Allergies Type Severity Reaction Last Updated Verified No Known Drug Allergies 01/12/17 No ROS Review of System CONSTITUTIONAL: No fever or chills EYES: No recent changes SKIN: No rash or itching CARDIOVASCULAR: No chest pain, syncope, palpitations, + increased swelling over past month RESPIRATORY: No SOB or cough GASTROINTESTINAL: No nausea, vomiting or abdominal pain NEUROLOGICAL: No headaches or weakness ENDOCRINE: No cold or heat intolerance GENITOURINARY: No urgency or frequency of urination MUSCULOSKELETAL: No back pain or joint pain LYMPHATICS: No enlarged lymph nodes PSYCHIATRIC: No anxiety or depression Physical Exam Physical Exam GEN.: No apparent distress. Alert and oriented. HEENT: Head is normocephalic, atraumatic NECK: Supple. LUNGS: Clear to auscultation. HEART: RRR, S1, S2 present. Peripheral pulses intact ABDOMEN: Soft, nontender. Positive bowel sounds. EXTREMITIES: Without any cyanosis, non pitting edema LE bilaterally, LE very tender to touch NEUROLOGIC: Normal speech, normal tone PSYCHIATRIC: Normal affect, normal mood. SKIN: No ulcerations Vitals Vitals Vital Signs Date Time Temp Pulse Resp B/P (MAP) Pulse Ox O2 Delivery O2 Flow Rate FiO2 05/29/18 07:00 97.4 69 20 149/68 (95) 93 Room Air 97.4 Labs Labs Laboratory Tests Test 05/28/18 22:40 05/29/18 03:40 05/29/18 06:35 White Blood Count 5.1 x10^3/uL (4.0-11.0) Red Blood Count 5.14 x10^6/uL (3.50-5.40) Hemoglobin 15.2 g/dL (12.0-15.5) Hematocrit 44.9 % (36.0-47.0) Mean Corpuscular Volume 87 fL (79-100) Mean Corpuscular Hemoglobin 30 pg (25-35) Mean Corpuscular Hemoglobin Concent 34 g/dL (31-37) Red Cell Distribution Width 14.2 % (11.5-14.5) Platelet Count 248 x10^3/uL (140-400) Neutrophils (%) (Auto) 63 % (31-73) Lymphocytes (%) (Auto) 28 % (24-48) Monocytes (%) (Auto) 7 % (0-9) Eosinophils (%) (Auto) 1 % (0-3) Basophils (%) (Auto) 1 % (0-3) Neutrophils # (Auto) 3.2 x10^3uL (1.8-7.7) Lymphocytes # (Auto) 1.4 x10^3/uL (1.0-4.8) Monocytes # (Auto) 0.4 x10^3/uL (0.0-1.1) Eosinophils # (Auto) 0.1 x10^3/uL (0.0-0.7) Basophils # (Auto) 0.1 x10^3/uL (0.0-0.2) Urine Collection Type U cath Urine Color Yellow Urine Clarity Clear Urine pH 6.0 Urine Specific [place] 1.015 Urine Protein Negative mg/dL (NEG-TRACE) Urine Glucose (UA) 500 mg/dL (NEG) Urine Ketones (Stick) Negative mg/dL (NEG) Urine Blood Negative (NEG) Urine Nitrite Positive (NEG) Urine Bilirubin Negative (NEG) Urine Urobilinogen Dipstick 1.0 mg/dL (0.2 mg/dL) Urine Leukocyte Esterase Small (NEG) Urine RBC 0 /HPF (0-2) Urine WBC 1-4 /HPF (0-4) Urine Squamous Epithelial Cells Few /LPF Urine Bacteria Many /HPF (0-FEW) Urine Hyaline Casts Moderate /HPF Sodium Level 139 mmol/L (136-145) Potassium Level 2.9 mmol/L (3.5-5.1) Chloride Level 98 mmol/L (98-107) Carbon Dioxide Level 31 mmol/L (21-32) Anion Gap 10 (6-14) Blood Urea Nitrogen 17 mg/dL (7-20) Creatinine 1.0 mg/dL (0.6-1.0) Estimated GFR (Cockcroft-Gault) 55.0 BUN/Creatinine Ratio 17 (6-20) Glucose Level 274 mg/dL (70-99) Calcium Level 9.2 mg/dL (8.5-10.1) Magnesium Level 1.8 mg/dL (1.8-2.4) Total Bilirubin 0.5 mg/dL (0.2-1.0) Aspartate Amino Transf (AST/SGOT) 13 U/L (15-37) Alanine Aminotransferase (ALT/SGPT) 14 U/L (14-59) Alkaline Phosphatase 98 U/L (46-116) Troponin I Quantitative < 0.017 ng/mL (0.000-0.055) < 0.017 ng/mL (0.000-0.055) < 0.017 ng/mL (0.000-0.055) Total Protein 7.0 g/dL (6.4-8.2) Albumin 3.3 g/dL (3.4-5.0) Albumin/Globulin Ratio 0.9 (1.0-1.7) Laboratory Tests Test 05/28/18 22:40 05/29/18 03:40 05/29/18 06:35 White Blood Count 5.1 x10^3/uL (4.0-11.0) Red Blood Count 5.14 x10^6/uL (3.50-5.40) Hemoglobin 15.2 g/dL (12.0-15.5) Hematocrit 44.9 % (36.0-47.0) Mean Corpuscular Volume 87 fL (79-100) Mean Corpuscular Hemoglobin 30 pg (25-35) Mean Corpuscular Hemoglobin Concent 34 g/dL (31-37) Red Cell Distribution Width 14.2 % (11.5-14.5) Platelet Count 248 x10^3/uL (140-400) Neutrophils (%) (Auto) 63 % (31-73) Lymphocytes (%) (Auto) 28 % (24-48) Monocytes (%) (Auto) 7 % (0-9) Eosinophils (%) (Auto) 1 % (0-3) Basophils (%) (Auto) 1 % (0-3) Neutrophils # (Auto) 3.2 x10^3uL (1.8-7.7) Lymphocytes # (Auto) 1.4 x10^3/uL (1.0-4.8) Monocytes # (Auto) 0.4 x10^3/uL (0.0-1.1) Eosinophils # (Auto) 0.1 x10^3/uL (0.0-0.7) Basophils # (Auto) 0.1 x10^3/uL (0.0-0.2) Urine Collection Type U cath Urine Color Yellow Urine Clarity Clear Urine pH 6.0 Urine Specific [place] 1.015 Urine Protein Negative mg/dL (NEG-TRACE) Urine Glucose (UA) 500 mg/dL (NEG) Urine Ketones (Stick) Negative mg/dL (NEG) Urine Blood Negative (NEG) Urine Nitrite Positive (NEG) Urine Bilirubin Negative (NEG) Urine Urobilinogen Dipstick 1.0 mg/dL (0.2 mg/dL) Urine Leukocyte Esterase Small (NEG) Urine RBC 0 /HPF (0-2) Urine WBC 1-4 /HPF (0-4) Urine Squamous Epithelial Cells Few /LPF Urine Bacteria Many /HPF (0-FEW) Urine Hyaline Casts Moderate /HPF Sodium Level 139 mmol/L (136-145) Potassium Level 2.9 mmol/L (3.5-5.1) Chloride Level 98 mmol/L (98-107) Carbon Dioxide Level 31 mmol/L (21-32) Anion Gap 10 (6-14) Blood Urea Nitrogen 17 mg/dL (7-20) Creatinine 1.0 mg/dL (0.6-1.0) Estimated GFR (Cockcroft-Gault) 55.0 BUN/Creatinine Ratio 17 (6-20) Glucose Level 274 mg/dL (70-99) Calcium Level 9.2 mg/dL (8.5-10.1) Magnesium Level 1.8 mg/dL (1.8-2.4) Total Bilirubin 0.5 mg/dL (0.2-1.0) Aspartate Amino Transf (AST/SGOT) 13 U/L (15-37) Alanine Aminotransferase (ALT/SGPT) 14 U/L (14-59) Alkaline Phosphatase 98 U/L (46-116) Troponin I Quantitative < 0.017 ng/mL (0.000-0.055) < 0.017 ng/mL (0.000-0.055) < 0.017 ng/mL (0.000-0.055) Total Protein 7.0 g/dL (6.4-8.2) Albumin 3.3 g/dL (3.4-5.0) Albumin/Globulin Ratio 0.9 (1.0-1.7) VTE Prophylaxis Ordered VTE Prophylaxis Devices: No VTE Pharmacological Prophylaxi: Yes Assessment/Plan Assessment/Plan Pt is a 67yo CF admitted for syncopal event 1)Syncopal event- symptoms sound like they could be related to vasovagal syncope , but had recent admission for syncopal event where pacemaker was placed due to complete heart block and severe bradycardia. Cardiology consulted 2)Possible UTI- Urine culture pending. Continue Rocephin for now 3)DM2- latest Hba1C not at goal. Pt continued on Metformin 1000mg BID, Actos 45mg. Will have SSI available if needed 4)Hypothyroidism- well controlled. Pt continued on levothyroxine 50mcg 5)HTN- moderately controlled. Will continue Triamterene/HCTZ 37.5/25mg. CTM 6)HLD- pt changed to Atorvastatin while in hospital, normally on 40mg pravastatin 7)Depression- pt continued on zoloft 100mg 8)Fibromyalgia- pt continued on Lyrica 150mg BID and Percocet 10/325mg 9)RLS- pt continued on Requip 10)GERD- pt changed to pantoprazole while in hospital, normally on prilosec 20mg BID 11)Hypokalemia- given oral replacement. Repeat BMP pending this am. ANGELICA LR MD May 29, 2018 08:15
[2018-05-29 08:27] LABS: CALCIUM 9.3 mg/dL (8.5-10.1); CREATININE 0.8 mg/dL (0.6-1.0); GFR 71.1; POTASSIUM 3.5 mmol/L (3.5-5.1)
[2018-05-29] MEDS: rOPINIRole 0.25 MG TABLET. PO SCH (09:26)
[2018-05-29] MEDS: ENOXAPARIN 40 MG/0.4 ML SYRINGE. SQ SCH (09:26)
[2018-05-29] MEDS: PIOGLITAZONE 15 MG TABLET. PO SCH (09:26)
[2018-05-29] MEDS: PANTOPRAZOLE 40 MG TABLET.DR. PO SCH (09:27)
[2018-05-29] MEDS: SERTRALINE 50 MG TABLET. PO SCH (09:27)
[2018-05-29] MEDS: metFORMIN 500 MG TABLET PO SCH ×2 (09:27→17:21)
[2018-05-29] MEDS: LEVOTHYROXINE 50 MCG TABLET PO SCH (09:27)
[2018-05-29] MEDS: TRIAMTERENE/HCTZ 37.5/25MG TABLET. PO SCH (09:27)
[2018-05-29] MEDS: oxyCODONE/APAP 10/325 1 TAB TABLET PO PRN ×3 (09:29→22:43)
[2018-05-29] MEDS: INSULIN LISPRO 300 UNITS/3 ML INSULN.PEN. SQ SCH ×3 (09:35→17:00)
--- NOTE | 2018-05-29 10:46 | PDOC2 ---
ALPESH CASIANO SPECIAL EDUCATION SUPERINTENDENT 05/29/18 1046: CARDIAC CONSULT DATE OF CONSULT Date of Consult DATE: 05/29/18 TIME: 10:27 REASON FOR CONSULT Reason for Consult: syncope REFERRING PHYSICIAN Referring Physician: Deepa SOURCE Source: Chart review, Patient HISTORY OF PRESENT ILLNESS HISTORY OF PRESENT ILLNESS This is a pleasant 67 yo female admitted for complains of passing out. Her mobility is limited due to chronic pain, back problem and obesity. She was helped shower last night by her and did well. She got up with the help of her trying to walk towards her scooter and before reaching it she felt that her midchest was sinking and felt diaphoretic. No dizziness feeling or flushed feeling or feeling of palpitations. She was sat down and then she lost consciousness for <1 min. No shaking or any bowel or bladder incontinence. No CP or SOA. Denies any prior episodes of these except before she had her PPM placed and it was that sinking feeling in her chest. No recent falls or injury. No MVA. Verbalized hydration adequacy. She takes her actos during the day. EMS arrived about 5min after being called and her BG was checked and it was in the 150s and her BP was actually elevated at least what she remembered was DBP at 103. No prior fever or chills or recent infection or antibiotics. No past VTE but has noted more leg swelling to legs and pain behind her knee especially her right. It is not red or hot. She takes opioids all the time for bad back and generalized OA. PAST MEDICAL HISTORY Past Medical History Cardiovascular: HTN, Hyperlipidemia, symptomatic CHB, chronic LBBB Pulmonary: Pneumonia CENTRAL NERVOUS SYSTEM: Peripheral neuropathy, TIA GI: GERD Heme/Onc: No pertinent hx Hepatobiliary: No pertinent hx Psych: Anxiety, Depression Musculoskeletal: Osteoarthritis Rheumatologic: No pertinent hx Infectious disease: No pertinent hx ENT: No pertinent hx Renal/: UTI Endocrine: Diabetes, Hypothyroidism Dermatology: No pertinent hx PAST SURGICAL HISTORY Past Surgical History PPM, Cholecystectomy, Hernia Repair, Other (right knee surgery) FAMILY HISTORY Family History: Diabetes, Hypertension SOCIAL HISTORY Smoke: No ALCOHOL: none Drugs: None Lives: with Family CURRENT MEDICATIONS CURRENT MEDICATIONS Current Medications Medications (Trade) Dose Ordered Sig/Vanda Route PRN Reason Start Time Stop Time Status Last Admin Dose Admin Sodium Chloride 500 ml @ 500 mls/hr 1X ONCE IV 05/28/18 23:15 05/29/18 00:14 DC 05/28/18 23:16 Potassium Chloride (Klor-Con) 40 meq 1X ONCE PO 05/28/18 23:45 05/28/18 23:46 DC 05/28/18 23:45 Ceftriaxone Sodium (Rocephin) 1 gm 1X ONCE IVP 05/29/18 00:30 05/29/18 00:31 DC 05/29/18 00:49 Acetaminophen/ Hydrocodone Bitart (Lortab 5/325) 1 tab 1X ONCE PO 05/29/18 01:00 05/29/18 01:01 DC 05/29/18 01:43 Pregabalin (Lyrica) 150 mg BID PO 05/29/18 07:00 05/29/18 06:55 Oxycodone/ Acetaminophen (Percocet 10/325) 1 tab PRN Q8HRS PRN PO PAIN 05/29/18 08:00 05/29/18 09:29 Triamterene/HCTZ (Maxzide 37.5/ 25mg) 1 tab DAILY PO 05/29/18 09:00 05/29/18 09:27 Levothyroxine Sodium (Synthroid) 50 mcg DAILY06 PO 05/29/18 08:00 05/29/18 09:27 Metformin HCl (Glucophage) 1,000 mg BIDWMEALS PO 05/29/18 08:00 05/29/18 09:27 Pantoprazole Sodium (Protonix) 40 mg DAILYAC PO 05/29/18 08:00 05/29/18 09:27 Ropinirole HCl (Requip) 0.5 mg DAILY PO 05/29/18 09:00 05/29/18 09:26 Sertraline HCl (Zoloft) 100 mg DAILY PO 05/29/18 09:00 05/29/18 09:27 Pioglitazone HCl (Actos) 45 mg DAILY PO 05/29/18 09:00 05/29/18 09:26 Enoxaparin Sodium (Lovenox 40mg Syringe) 40 mg Q24H SQ 05/29/18 08:00 05/29/18 09:26 Insulin Human Lispro (HumaLOG) 0-5 UNITS TIDWMEALS SQ 05/29/18 09:00 05/29/18 09:35 ALLERGIES ALLERGIES: Coded Allergies: No Known Drug Allergies (Unverified , 01/12/17) ROS Review of System 14 point ROS evaluated with pertinent positives noted per HPI PHYSICAL EXAM General: Alert, Oriented X3, Cooperative, No acute distress HEENT: Atraumatic, Mucous membr. moist/pink Lungs: Clear to auscultation, Normal air movement Heart: Regular rate (SR with intermittent pacing with LBBB) Abdomen: Soft, No tenderness, Other (obese) Extremities: No cyanosis, Other (1+ bilateral LE pitting edema) Skin: No breakdown, No significant lesion, Other (left chest PPM surgical incision site pale pink well approximated and healed with no swelling or redness or oozing. ) Neuro: Normal speech, Sensation intact Psych/Mental Status: Mental status NL, Mood NL MUSCULOSKELETAL: Osteoarthritic changes both hands VITALS VITALS Vital Signs Date Time Temp Pulse Resp B/P (MAP) Pulse Ox O2 Delivery O2 Flow Rate FiO2 05/29/18 08:00 Room Air 05/29/18 07:00 97.4 69 20 149/68 (95) 93 97.4 LABS Lab: Laboratory Tests Test 05/28/18 22:40 05/29/18 03:40 05/29/18 06:35 05/29/18 07:10 White Blood Count 5.1 x10^3/uL (4.0-11.0) Red Blood Count 5.14 x10^6/uL (3.50-5.40) Hemoglobin 15.2 g/dL (12.0-15.5) Hematocrit 44.9 % (36.0-47.0) Mean Corpuscular Volume 87 fL (79-100) Mean Corpuscular Hemoglobin 30 pg (25-35) Mean Corpuscular Hemoglobin Concent 34 g/dL (31-37) Red Cell Distribution Width 14.2 % (11.5-14.5) Platelet Count 248 x10^3/uL (140-400) Neutrophils (%) (Auto) 63 % (31-73) Lymphocytes (%) (Auto) 28 % (24-48) Monocytes (%) (Auto) 7 % (0-9) Eosinophils (%) (Auto) 1 % (0-3) Basophils (%) (Auto) 1 % (0-3) Neutrophils # (Auto) 3.2 x10^3uL (1.8-7.7) Lymphocytes # (Auto) 1.4 x10^3/uL (1.0-4.8) Monocytes # (Auto) 0.4 x10^3/uL (0.0-1.1) Eosinophils # (Auto) 0.1 x10^3/uL (0.0-0.7) Basophils # (Auto) 0.1 x10^3/uL (0.0-0.2) Urine Collection Type U cath Urine Color Yellow Urine Clarity Clear Urine pH 6.0 Urine Specific [place] 1.015 Urine Protein Negative mg/dL (NEG-TRACE) Urine Glucose (UA) 500 mg/dL (NEG) Urine Ketones (Stick) Negative mg/dL (NEG) Urine Blood Negative (NEG) Urine Nitrite Positive (NEG) Urine Bilirubin Negative (NEG) Urine Urobilinogen Dipstick 1.0 mg/dL (0.2 mg/dL) Urine Leukocyte Esterase Small (NEG) Urine RBC 0 /HPF (0-2) Urine WBC 1-4 /HPF (0-4) Urine Squamous Epithelial Cells Few /LPF Urine Bacteria Many /HPF (0-FEW) Urine Hyaline Casts Moderate /HPF Sodium Level 139 mmol/L (136-145) 141 mmol/L (136-145) Potassium Level 2.9 mmol/L (3.5-5.1) 3.5 mmol/L (3.5-5.1) Chloride Level 98 mmol/L (98-107) 101 mmol/L (98-107) Carbon Dioxide Level 31 mmol/L (21-32) 29 mmol/L (21-32) Anion Gap 10 (6-14) 11 (6-14) Blood Urea Nitrogen 17 mg/dL (7-20) 16 mg/dL (7-20) Creatinine 1.0 mg/dL (0.6-1.0) 0.8 mg/dL (0.6-1.0) Estimated GFR (Cockcroft-Gault) 55.0 71.1 BUN/Creatinine Ratio 17 (6-20) Glucose Level 274 mg/dL (70-99) 154 mg/dL (70-99) Calcium Level 9.2 mg/dL (8.5-10.1) 9.3 mg/dL (8.5-10.1) Magnesium Level 1.8 mg/dL (1.8-2.4) Total Bilirubin 0.5 mg/dL (0.2-1.0) Aspartate Amino Transf (AST/SGOT) 13 U/L (15-37) Alanine Aminotransferase (ALT/SGPT) 14 U/L (14-59) Alkaline Phosphatase 98 U/L (46-116) Troponin I Quantitative < 0.017 ng/mL (0.000-0.055) < 0.017 ng/mL (0.000-0.055) < 0.017 ng/mL (0.000-0.055) Total Protein 7.0 g/dL (6.4-8.2) Albumin 3.3 g/dL (3.4-5.0) Albumin/Globulin Ratio 0.9 (1.0-1.7) Glucose (Fingerstick) 158 mg/dL (70-99) ECHOCARDIOGRAM ECHOCARDIOGRAM <Conclusion> The left ventricular systolic function is normal. The Ejection Fraction is 55-60%. Trace mitral regurgitation. Trace tricuspid regurgitation. The PA pressure was estimated at 29 mmHg. There is no evidence of significant pericardial effusion. DATE: 04/30/18 1028 ASSESSMENT/PLAN ASSESSMENT/PLAN 1. Syncope; possibly vasovagal. <1min. recent TTE as noted above. No orthostasis. Hypoglycemia could not be ruled out. 2. S/P PPM: 04/29/2018 for symptomatic CHB (biotronik) with DDD, CLS base rate 60. 98% Vpaced 56 A paced based on remote checked 05/28 3. HTN: controlled 4. DM2/HLP: no noted hypoglycemia 5. Hypokalemia: better after replacement. on home maxide 6. UTI: Abx per PCP 7. Chronic opioid use with chronic back pain and generalized OA 8. Leg edema: Likely from venous insufficiency. Not significant currently compared to her description. I dont suspect VTE but complains of pain likely from OA 9. DPN: possibly from combination of lumbar radiculopathy and DM Recommendations 1. Venous doppler to LE and rule out DVT 3. Restart statin and maxide. 3. Interrogate device, CXR shows adequate lead placement, Monitor rhythm, anticipate DC tomorrow. Addendum Interrogation today revealed normal functioning device. No significant arrhythmias. CLS sensitivity has been increased per my discussion with Device Rep. KASSIE ROBERTSON MD 05/29/18 1607: CARDIAC CONSULT ASSESSMENT/PLAN ASSESSMENT/PLAN Patient seen and examined. Agree with APPLICATIONS CHEMIST's assessment and plan. Syncope most probably vasovagal Orthostatics negative Pacemaker interrogation showed normal function Recent 2-D echo showed normal LV systolic function Follow-up with our office in 1 month. ALPESH CASIANO APRN May 29, 2018 10:46 KASSIE ROBERTSON MD May 29, 2018 16:07
[2018-05-29 11:00] VITALS: BP_SYST 101; BP_SYST 139; BP_SYST 147; BP_DIAS 68; BP_DIAS 76; BP_DIAS 80
[2018-05-29 15:00] VITALS: BP 140/69
--- NOTE | 2018-05-29 16:52 | RAD ---
Examination: Bilateral Lower Extremity Venous Doppler Ultrasound History: pain Comparison: None Procedure: [place] scale, color flow 2D and spectal waveform analysis images are obtained with and without compression in the area of the common femoral vein, superficial femoral vein - femoral vein junction, main femoral vein (superficial femoral vein) and popliteal vein. Veins of the proximal calf are also imaged. Findings: There is normal duplex flow, color flow and compressibility of all visualized vein segments. No evidence of deep venous thrombus is present. Limited scan due to patient body habitus. The superficial femoral veins and the peroneal veins could not be clearly evaluated. Impression: No evidence of DVT in the visualized bilateral lower extremity venous system. Limited evaluation. Electronically signed by: William Gomez MD (05/29/2018 4:49 PM) [facility]
[2018-05-29 19:00] VITALS: BP 127/55
[2018-05-29] MEDS: LACTOBACILLUS RHAMNOSUS GG 1 CAPSULE. PO SCH (20:07)
[2018-05-29] MEDS ORDERED: cefTRIAXone IV Push 1 GM VIAL. IVP SCH (21:00)
[2018-05-29] MEDS ORDERED: ATORVASTATIN CALCIUM 20 MG TABLET PO SCH (21:00)
[2018-05-29 22:42] VITALS: BP 147/68
[2018-05-30 02:52] VITALS: BP 127/55
[2018-05-30] MEDS ORDERED: DICY10CA3 PO (04:16)
[2018-05-30] MEDS ORDERED: NITR100C62 PO (04:16)
[2018-05-30] MEDS ORDERED: PIOG15TA42 PO (04:16)
[2018-05-30] MEDS ORDERED: LEVO50TA PO (04:16)
--- NOTE | 2018-05-30 04:17 | PDOC3 ---
Discharge Summary Date of Admission: May 29, 2018 Date of Discharge: May 30, 2018 Follow-Up: Other (2 weks) Admitting Diagnosis comment: Syncope FINAL DIAGNOSIS Syncope- likely vasovagal, UTI, DM2, Hypothyroidism, HTN, HLD, Depression, Fibromyalgia, RLS, GERD, Hypokalemia- resolved Brief Hospital Course DISCHARGE PHYSICAL EXAM GEN.: No apparent distress. Alert and oriented. HEENT: Head is normocephalic, atraumatic NECK: Supple. LUNGS: Clear to auscultation. HEART: RRR, S1, S2 present. Peripheral pulses intact ABDOMEN: Soft, nontender. Positive bowel sounds. EXTREMITIES: Without any cyanosis, non pitting edema LE bilaterally, LE very tender to touch NEUROLOGIC: Normal speech, normal tone PSYCHIATRIC: Normal affect, normal mood. SKIN: No ulcerations Pt is a 67yo CF admitted for syncopal event 1)Syncopal event- symptoms sound like they could be related to vasovagal syncope. Cardiology following. No significant cardiac events during admission. Recent admission for syncope pacemaker placement due to complete heart block and severe bradycardia 2)Possible UTI- Urine culture pending. Discharged on Macrobid 3)DM2- latest Hba1C not at goal. Pt continued on Metformin 1000mg BID, Actos 45mg. Adjustments per Dr. Greenberg on follow up 4)Hypothyroidism- well controlled. Pt continued on levothyroxine 50mcg 5)HTN- moderately controlled. Will continue Triamterene/HCTZ 37.5/25mg 6)HLD- pt changed to Atorvastatin while in hospital, normally on 40mg pravastatin 7)Depression- pt continued on zoloft 100mg 8)Fibromyalgia- pt continued on Lyrica 150mg BID and Percocet 10/325mg 9)RLS- pt continued on Requip 10)GERD- pt changed to pantoprazole while in hospital, normally on prilosec 20mg BID 11)Hypokalemia- resolved with replacement CONDITION AT DISCHARGE: Improved Discharge Medications Current Medications Sodium Chloride 500 ml @ 500 mls/hr 1X ONCE IV Last administered on at 23:16; Start 05/28/18 at 23:15; Stop 05/29/18 at 00:14; Status DC Potassium Chloride (Klor-Con) 40 meq 1X ONCE PO Last administered on at 23:45; Start 05/28/18 at 23:45; Stop 4/10/19 at 23:46; Status DC Ceftriaxone Sodium (Rocephin) 1 gm 1X ONCE IVP Last administered on 05/29/18 00:49; Start 05/29/18 at 00:30; Stop 05/29/18 at 00:31; Status DC Potassium Chloride (Klor-Con) 40 meq 1X ONCE PO ; Start 05/29/18 at 00:30; Stop 05/29/18 at 00:41; Status DC Acetaminophen/ Hydrocodone Bitart (Lortab 5/325) 1 tab 1X ONCE PO Last administered on 05/29/18 01:43; Start 05/29/18 at 01:00; Stop 05/29/18 at 01:01 ; Status DC Pregabalin (Lyrica) 150 mg BID PO Last administered on 05/29/18 20:06; Start 05/29/18 at 07:00 Oxycodone/ Acetaminophen (Percocet 10/325) 1 tab PRN Q8HRS PRN PO PAIN Last administered on 05/29/18 17:21; Start 05/29/18 at 08:00; Stop 05/29/18 at 18:32 ; Status DC Triamterene/HCTZ (Maxzide 37.5/ 25mg) 1 tab DAILY PO Last administered on 09:27; Start 05/29/18 at 09:00 Levothyroxine Sodium (Synthroid) 50 mcg DAILY06 PO Last administered on 09:27; Start 05/29/18 at 08:00 Metformin HCl (Glucophage) 1,000 mg BIDWMEALS PO Last administered on 17:21; Start 05/29/18 at 08:00 Pantoprazole Sodium (Protonix) 40 mg DAILYAC PO Last administered on 05/29/18 09:27; Start 05/29/18 at 08:00 Atorvastatin Calcium (Lipitor) 20 mg QHS PO Last administered on 05/29/18 20: 06; Start 05/29/18 at 21:00 Ropinirole HCl (Requip) 0.5 mg DAILY PO Last administered on 05/29/18 09:26; Start 05/29/18 at 09:00 Sertraline HCl (Zoloft) 100 mg DAILY PO Last administered on 05/29/18 09:27; Start 05/29/18 at 09:00 Pioglitazone HCl (Actos) 45 mg DAILY PO Last administered on 05/29/18 09:26; Start 05/29/18 at 09:00 Dicyclomine HCl (Bentyl) 10 mg PRN TID PRN PO stomach cramping; Start 05/29/18 at 08:00 Enoxaparin Sodium (Lovenox 40mg Syringe) 40 mg Q24H SQ Last administered on 09:26; Start 05/29/18 at 08:00 Ceftriaxone Sodium (Rocephin) 1 gm Q24H IVP Last administered on 05/29/18 20: 07; Start 05/29/18 at 21:00 Insulin Human Lispro (HumaLOG) 0-5 UNITS TIDWMEALS SQ Last administered on 05/29 12:36; Start 05/29/18 at 09:00 Dextrose (Dextrose 50%-Water Syringe) 12.5 gm PRN Q15MIN PRN IV SEE COMMENTS; Start 05/29/18 at 08:15 Potassium Chloride (Klor-Con) 20 meq 1X ONCE PO Last administered on 12:29; Start 05/29/18 at 10:45; Stop 05/29/18 at 10:47; Status DC Lactobacillus Rhamnosus (Culturelle) 1 cap BID PO Last administered on 20:07; Start 05/29/18 at 21:00 Oxycodone/ Acetaminophen (Percocet 10/325) 1 tab PRN Q6HRS PRN PO PAIN Last administered on 05/29/18 22:43; Start 05/29/18 at 18:45 Active Scripts Active Reported Requip (Ropinirole Hcl) 0.5 Mg Tablet 1 Tab PO QHS Lyrica (Pregabalin) 150 Mg Capsule 1 Cap PO BID Biotin 10,000 Mcg Capsule 10,000 Mcg PO DAILY B-12 (Cyanocobalamin (Vitamin B-12)) 1,000 Mcg Tablet 1,000 Mcg PO DAILY Levothyroxine Sodium 25 Mcg Tablet 1 Tab PO DAILY Vitamin D2 (Ergocalciferol (Vitamin D2)) 50,000 Unit Capsule 1 Cap PO WEEKLY Omeprazole 20 Mg Capsule.dr 20 Mg PO BID Triamterene-Hctz 37.5-25 Mg Tb (Triamterene/Hydrochlorothiazid) 1 Each Tablet 1 Tab PO DAILY Metformin Hcl 1,000 Mg Tablet 1,000 Mg PO BIDWMEALS Pravastatin Sodium 40 Mg Tablet 1 Tab PO DAILY Zoloft (Sertraline Hcl) 100 Mg Tablet 1 Tab PO DAILY Oxycodone-Acetaminophen 10-325 (Oxycodone Hcl/Acetaminophen) 1 Each Tablet 1 Each PO PRN Q8HRS PRN Vital Signs Vital Signs Date Time Temp Pulse Resp B/P (MAP) Pulse Ox O2 Delivery O2 Flow Rate FiO2 05/30/18 02:52 98.1 64 18 127/55 (79) 94 Room Air 98.1 Labs Laboratory Tests Test 05/28/18 22:40 05/29/18 03:40 05/29/18 06:35 05/29/18 07:10 White Blood Count 5.1 x10^3/uL (4.0-11.0) Red Blood Count 5.14 x10^6/uL (3.50-5.40) Hemoglobin 15.2 g/dL (12.0-15.5) Hematocrit 44.9 % (36.0-47.0) Mean Corpuscular Volume 87 fL (79-100) Mean Corpuscular Hemoglobin 30 pg (25-35) Mean Corpuscular Hemoglobin Concent 34 g/dL (31-37) Red Cell Distribution Width 14.2 % (11.5-14.5) Platelet Count 248 x10^3/uL (140-400) Neutrophils (%) (Auto) 63 % (31-73) Lymphocytes (%) (Auto) 28 % (24-48) Monocytes (%) (Auto) 7 % (0-9) Eosinophils (%) (Auto) 1 % (0-3) Basophils (%) (Auto) 1 % (0-3) Neutrophils # (Auto) 3.2 x10^3uL (1.8-7.7) Lymphocytes # (Auto) 1.4 x10^3/uL (1.0-4.8) Monocytes # (Auto) 0.4 x10^3/uL (0.0-1.1) Eosinophils # (Auto) 0.1 x10^3/uL (0.0-0.7) Basophils # (Auto) 0.1 x10^3/uL (0.0-0.2) Urine Collection Type U cath Urine Color Yellow Urine Clarity Clear Urine pH 6.0 Urine Specific [place] 1.015 Urine Protein Negative mg/dL (NEG-TRACE) Urine Glucose (UA) 500 mg/dL (NEG) Urine Ketones (Stick) Negative mg/dL (NEG) Urine Blood Negative (NEG) Urine Nitrite Positive (NEG) Urine Bilirubin Negative (NEG) Urine Urobilinogen Dipstick 1.0 mg/dL (0.2 mg/dL) Urine Leukocyte Esterase Small (NEG) Urine RBC 0 /HPF (0-2) Urine WBC 1-4 /HPF (0-4) Urine Squamous Epithelial Cells Few /LPF Urine Bacteria Many /HPF (0-FEW) Urine Hyaline Casts Moderate /HPF Sodium Level 139 mmol/L (136-145) 141 mmol/L (136-145) Potassium Level 2.9 mmol/L (3.5-5.1) 3.5 mmol/L (3.5-5.1) Chloride Level 98 mmol/L (98-107) 101 mmol/L (98-107) Carbon Dioxide Level 31 mmol/L (21-32) 29 mmol/L (21-32) Anion Gap 10 (6-14) 11 (6-14) Blood Urea Nitrogen 17 mg/dL (7-20) 16 mg/dL (7-20) Creatinine 1.0 mg/dL (0.6-1.0) 0.8 mg/dL (0.6-1.0) Estimated GFR (Cockcroft-Gault) 55.0 71.1 BUN/Creatinine Ratio 17 (6-20) Glucose Level 274 mg/dL (70-99) 154 mg/dL (70-99) Calcium Level 9.2 mg/dL (8.5-10.1) 9.3 mg/dL (8.5-10.1) Magnesium Level 1.8 mg/dL (1.8-2.4) Total Bilirubin 0.5 mg/dL (0.2-1.0) Aspartate Amino Transf (AST/SGOT) 13 U/L (15-37) Alanine Aminotransferase (ALT/SGPT) 14 U/L (14-59) Alkaline Phosphatase 98 U/L (46-116) Troponin I Quantitative < 0.017 ng/mL (0.000-0.055) < 0.017 ng/mL (0.000-0.055) < 0.017 ng/mL (0.000-0.055) Total Protein 7.0 g/dL (6.4-8.2) Albumin 3.3 g/dL (3.4-5.0) Albumin/Globulin Ratio 0.9 (1.0-1.7) Glucose (Fingerstick) 158 mg/dL (70-99) Test 05/29/18 11:15 05/29/18 16:46 05/29/18 19:47 Glucose (Fingerstick) 197 mg/dL (70-99) 210 mg/dL (70-99) 168 mg/dL (70-99) Laboratory Tests Test 05/29/18 06:35 05/29/18 07:10 05/29/18 11:15 05/29/18 16:46 Sodium Level 141 mmol/L (136-145) Potassium Level 3.5 mmol/L (3.5-5.1) Chloride Level 101 mmol/L (98-107) Carbon Dioxide Level 29 mmol/L (21-32) Anion Gap 11 (6-14) Blood Urea Nitrogen 16 mg/dL (7-20) Creatinine 0.8 mg/dL (0.6-1.0) Estimated GFR (Cockcroft-Gault) 71.1 Glucose Level 154 mg/dL (70-99) Calcium Level 9.3 mg/dL (8.5-10.1) Troponin I Quantitative < 0.017 ng/mL (0.000-0.055) Glucose (Fingerstick) 158 mg/dL (70-99) 197 mg/dL (70-99) 210 mg/dL (70-99) Test 05/29/18 19:47 Glucose (Fingerstick) 168 mg/dL (70-99) Allergies Allergies Coded Allergies Type Severity Reaction Last Updated Verified No Known Drug Allergies 01/12/17 No Disposition/Orders: D/C to Home ANGELICA LR MD May 30, 2018 04:17
[2018-05-30 04:30] LABS: BASO # 0.1 x10^3/uL (0.0-0.2); BASO % 2 % (0-3); EOS # 0.1 x10^3/uL (0.0-0.7); EOS % 1 % (0-3); HEMATOCRIT 42.6 % (36.0-47.0); HEMOGLOBIN 14.5 g/dL (12.0-15.5); LYMPH % 38 % (24-48); MEAN CORPUSCULAR HEMOGLOBIN 30 pg (25-35); MEAN CORPUSCULAR HGB CONC 34 g/dL (31-37); MEAN CORPUSCULAR VOLUME 88 fL (79-100); MONO # 0.5 x10^3/uL (0.0-1.1); MONO % 9 % (0-9); NEUT # 2.7 x10^3uL (1.8-7.7); NEUT % 51 % (31-73); PLATELET COUNT 230 x10^3/uL (140-400); RED BLOOD COUNT 4.86 x10^6/uL (3.50-5.40); RED CELL DISTRIBUTION WIDTH 14.3 % (11.5-14.5); WHITE BLOOD COUNT 5.2 x10^3/uL (4.0-11.0)
[2018-05-30 04:45] LABS: CALCIUM 9.1 mg/dL (8.5-10.1); CREATININE 0.9 mg/dL (0.6-1.0); GFR 62.1; POTASSIUM 3.4 mmol/L (3.5-5.1)
[2018-05-30] MEDS: LEVOTHYROXINE 50 MCG TABLET PO SCH (06:05)
[2018-05-30] MEDS: oxyCODONE/APAP 10/325 1 TAB TABLET PO PRN (06:06)
[2018-05-30 07:00] VITALS: BP 133/56
[2018-05-30] MEDS: ENOXAPARIN 40 MG/0.4 ML SYRINGE. SQ SCH (08:40)
[2018-05-30] MEDS: TRIAMTERENE/HCTZ 37.5/25MG TABLET. PO SCH (08:41)
[2018-05-30] MEDS: metFORMIN 500 MG TABLET PO SCH (08:41)
[2018-05-30] MEDS: SERTRALINE 50 MG TABLET. PO SCH (08:41)
[2018-05-30] MEDS: PIOGLITAZONE 15 MG TABLET. PO SCH (08:41)
[2018-05-30] MEDS: PREGABALIN 75 MG CAPSULE PO SCH (08:41)
[2018-05-30] MEDS: PANTOPRAZOLE 40 MG TABLET.DR. PO SCH (08:42)
[2018-05-30] MEDS: LACTOBACILLUS RHAMNOSUS GG 1 CAPSULE. PO SCH (08:42)
[2018-05-30] MEDS: rOPINIRole 0.25 MG TABLET. PO SCH (08:42)
[2018-05-30] MEDS: INSULIN LISPRO 300 UNITS/3 ML INSULN.PEN. SQ SCH (08:56)
== END 2018-05-30 09:20 | disposition home or self-care (01) | DRG 690 ==
LOC: ER 22:11 → 6 SOUTH 23:55
PROVIDERS: ADMIT Family Medicine; ATTEND Family Medicine
PROC: 4B02XSZ Measurement of Cardiac Pacemaker, External Approach (ICD-10-PCS; principal; 2018-05-29)
DX: N39.0 Urinary tract infection, site not specified (principal); R55 Syncope and collapse; I10 Essential (primary) hypertension; E87.6 Hypokalemia; M79.7 Fibromyalgia; K21.9 Gastro-esophageal reflux disease without esophagitis; E78.00 Pure hypercholesterolemia, unspecified; E78.5 Hyperlipidemia, unspecified; E11.42 Type 2 diabetes mellitus with diabetic polyneuropathy; F41.9 Anxiety disorder, unspecified; E03.9 Hypothyroidism, unspecified; F32.9 Major depressive disorder, single episode, unspecified; G25.81 Restless legs syndrome; G89.29 Other chronic pain; E66.9 Obesity, unspecified; I44.7 Left bundle-branch block, unspecified; M19.90 Unspecified osteoarthritis, unspecified site; Z90.49 Acquired absence of other specified parts of digestive tract; Z95.0 Presence of cardiac pacemaker; Z86.73 Personal history of transient ischemic attack (TIA), and cerebral infarction without residual deficits; Z79.891 Long term (current) use of opiate analgesic; Z83.3 Family history of diabetes mellitus; Z82.49 Family history of ischemic heart disease and other diseases of the circulatory system; Z79.84 Long term (current) use of oral hypoglycemic drugs
CPT/HCPCS: 36415; 71045; 80048; 80053; 81001; 82962; 83735; 84484; 85025; 87086; 87186; 93005; 93970; 96361; 96374; J0696; J1650; J1815; J7040; 99285-25

== ENCOUNTER → 2018-06-13 | Outpatient (CLI) | payer MEDICARE ==
[2018-05-30 07:00] VITALS: BP 133/56
[~2018-06-13] MED LIST changes: +DICY10CA3 PO; +LEVO50TA PO; +NITR100C62 PO; +PIOG15TA42 PO
--- NOTE | 2018-06-13 17:33 | RAD ---
EXAM: Left upper extremity venous Doppler. HISTORY: Left upper extremity pain/swelling. COMPARISON: None. FINDINGS: Grayscale and Doppler analysis of the left upper extremity deep venous system was performed with graded compression and augmentation. The internal jugular, subclavian, axillary, brachial, basilic, cephalic, and radial veins were assessed. Evaluation is somewhat limited due to presence of a left upper chest pacemaker. In addition, the left ulnar vein was not seen. There is no evidence of deep venous thrombosis. IMPRESSION: 1. No evidence of deep venous thrombosis involving visualized venous structures. Electronically signed by: Ray Gtz MD (06/13/2018 5:30 PM) [facility]
== END | disposition home or self-care (01) ==
LOC: US 15:06
PROVIDERS: ATTEND Family Medicine
DX: M79.622 Pain in left upper arm (principal); M79.89 Other specified soft tissue disorders; Z95.0 Presence of cardiac pacemaker
CPT/HCPCS: 93971

== ENCOUNTER → 2019-02-27 | Day surgery (SDC) | payer MEDICARE ==
[~2019-02-27] MED LIST changes: +IV RINGERS,LACTATED 1000ML 1,000 ML IV SCH; +LIDOCAINE 2% PF 5 ML VIAL. ONE; -OMEP20CA10 PO; +OMEP20CA16 PO; +PROPOFOL 60 ML IV ONE
[2019-02-27 10:44] VITALS: BP 154/58
--- NOTE | 2019-03-02 16:06 | PATHOLOGY ---
[facility] Accession Number: [id number] . 01 Material submitted: . PART A: esophagus - DISTAL ESOPHAGUS. Modifiers: distal PART B: rectum - RECTAL POLYP . 01 Clinical history: . Hx Ferreira's . 02 Diagnosis: A. Esophagus, distal, biopsy: - Squamocolumnar junctional mucosa; chronically inflamed. - Negative for intestinal metaplasia. . B. Rectal polyp, biopsy: - Tubular adenoma. - Negative for high-grade dysplasia. (MAP:[facility] 03/02/2019) [facility] 03/02/2019 1243 Local . 02 Electronically signed: . Gatito Mcdaniel MD, Pathologist NPI- [id number] . 01 Gross description: . A. Received in formalin labeled "Button, Sherry, distal esophagus, Hx of Ferreira's," are 4 segments of stack soft tissue measuring 1.3 x 0.6 x 0.2 cm in aggregate dimensions and ranging from 0.4 to 0.5 cm in maximum dimension. The specimen is submitted entirely in cassette A1. . B. Received in formalin labeled "Button, Sherry, rectal polyp," is a 0.8 x 0.5 x 0.4 cm polypoid piece of stack soft tissue. The margin is inked and the tissue is sectioned perpendicular to the margin and submitted entirely in cassette B1. (TSD; 02/27/2019) TOB/TOB 02/27/2019 2221 Local . 02 Pathologist provided ICD-10: K20.9, D12.8 . 02 CPT . 051471, 330846 Specimen Comment: A courtesy copy of this report has been sent to [phone], [phone] Specimen Comment: [id number] Specimen Comment: Report sent to / DR SOLOMON Performed at: 01 [facility] [address] [facility] [address] [facility] [address], [place], [place] [id number] MD Raghu Barraza MD Phone: [phone] Performed at: 02 [facility] [address] [place], [place] [id number] MD Toni Fitzgerald MD Phone: [phone]
== END ==
LOC: ENDOS 08:56
PROVIDERS: ATTEND Internal Medicine Gastroenterology
DX: R19.7 Diarrhea, unspecified (principal); D12.8 Benign neoplasm of rectum; K21.0 Gastro-esophageal reflux disease with esophagitis; F41.9 Anxiety disorder, unspecified; F32.9 Major depressive disorder, single episode, unspecified; M79.7 Fibromyalgia; E03.9 Hypothyroidism, unspecified; E78.00 Pure hypercholesterolemia, unspecified; G62.9 Polyneuropathy, unspecified; Z88.8 Allergy status to other drugs, medicaments and biological substances
CPT/HCPCS: 43239; 45380; 88305; J2001; J2704

== ENCOUNTER → 2020-09-07 | Outpatient (CLI) | payer MEDICARE ==
[2019-02-27 10:44] VITALS: BP 154/58
[~2020-09-07] MED LIST changes: -IV RINGERS,LACTATED 1000ML 1,000 ML IV SCH; -LIDOCAINE 2% PF 5 ML VIAL. ONE; -OXYC-411 PO; +OXYC1TAB20 PO; -PROPOFOL 60 ML IV ONE
--- NOTE | 2020-09-07 16:41 | CARD ---
MR#: [id number] Date of Study: 09/07/2020 Ordering Physician: KASSIE ROBERTSON, Referring Physician: KASSIE ROBERTSON Tech: Yeimy De Santiago ADITI APPROVED REPORT EXAM: Two-dimensional and M-mode echocardiogram with Doppler and color Doppler. Other Information Quality : Technically LimitedHR: 70bpm Rhythm : NSR INDICATION Chest Pain RISK FACTORS Hypertension Obesity Hyperlipidemia Diabetes 2D DIMENSIONS RVDd3.5 (2.9-3.5cm)Left Atrium(2D)3.1 (1.6-4.0cm) IVSd0.8 (0.7-1.1cm)Aortic Root(2D)3.0 (2.0-3.7cm) LVDd5.0 (3.9-5.9cm)LVOT Diameter2.2 (1.8-2.4cm) PWd1.0 (0.7-1.1cm)LVDs3.6 (2.5-4.0cm) FS (%) 28.4 %SV63.7 ml Aortic Valve AoV Peak Aaron.152.2cm/sAoV VTI38.9cm AO Peak GR.9.3mmHgLVOT Peak Aaron.92.9cm/s AO Mean GR.5mmHgAVA (VMAX)2.39cm2 Mitral Valve MV E Juijuwon403.0cm/sMV DECEL HYQE689xh MV A Gnfhcocp63.6cm/sE/A Ratio1.1 LEFT VENTRICLE The left ventricle is normal size. There is normal left ventricular wall thickness. The systolic func tion is low normal. Estimated LV ejection fraction of 50%. There is normal LV segmental wall motion. Transmitral Doppler flow pattern is Grade I-abnormal relaxation pattern. RIGHT VENTRICLE The right ventricle is normal size. There is normal right ventricular wall thickness. The right ventr icular systolic function is normal. ATRIA The left atrium size is normal. The right atrium size is normal. The interatrial septum is intact wit h no evidence for an atrial septal defect or patent foramen ovale as noted on 2-D or Doppler imaging. AORTIC VALVE The aortic valve is normal in structure and function. Doppler and Color Flow revealed no significant aortic regurgitation. There is no significant aortic valvular stenosis. MITRAL VALVE The mitral valve is normal in structure and function. There is no evidence of mitral valve prolapse. There is no mitral valve stenosis. Doppler and Color-flow revealed trace mitral regurgitation. TRICUSPID VALVE The tricuspid valve is normal in structure and function. Doppler and Color Flow revealed no tricuspid valve regurgitation noted. PULMONIC VALVE The pulmonary valve is normal in structure and function. Doppler and Color Flow revealed no pulmonic valvular regurgitation. GREAT VESSELS The aortic root is normal in size. The ascending aorta is normal in size. The IVC is normal in size a nd collapses >50% with inspiration. PERICARDIAL EFFUSION There is no evidence of significant pericardial effusion. Critical Notification Critical Value: No <Conclusion> The left ventricle is normal size. The systolic function is low normal. Estimated LV ejection fraction of 50%. Doppler and Color Flow revealed no significant aortic regurgitation. There is no significant aortic valvular stenosis. Doppler and Color-flow revealed trace mitral regurgitation. Doppler and Color Flow revealed no tricuspid valve regurgitation noted. Signed by : Javed Centeno MD Electronically Approved : 09/07/2020 16:40:48
== END ==
LOC: ECHO 12:35
PROVIDERS: ATTEND Internal Medicine Cardiovascular Disease
DX: I44.2 Atrioventricular block, complete (principal)
CPT/HCPCS: 93306

== ENCOUNTER 2020-11-04 07:10 | Inpatient (IN) | payer MEDICARE ==
[~2020-11-04] VITALS: Ht 160 cm; Wt 122.3 kg
--- NOTE | 2020-11-04 07:26 | PHYS DOC ---
Past Medical History Past Medical History: Diabetes-Type II, Fibromyalgia, GERD, High Cholesterol, Hypertension, Hypothyroid Past Surgical History: Cholecystectomy Additional Past Surgical Histo: R WRIST, BX ELBOW, R KNEE, HERNIA Smoking Status: Never Smoker Alcohol Use: None Drug Use: None General Adult EDM: Chief Complaint: CHEST PAIN HPI: HPI: 69-year-old female with a history of diabetes, obesity, pacemaker placement presents to the emergency department complaining of pressure in her chest that started around 0 200 this morning approximately 5 hours prior to arrival in the emergency department. She reports the pain is like a pressure sitting on her chest. She also complains of some joint pain that is chronic along with some shortness of breath with the chest pain. She took oxycodone last night for her joint pain before her chest pain started but it did not help her chest pain. She did not take anything this morning for her chest pain. She was given nitroglycerin and aspirin in route to the emergency department with EMS. She lives in a private home. The patient denies abdominal pain, urinary symptoms, diarrhea, vomiting, radiation of pain, sweating, shortness of air, nausea, palpitations or dizziness. Review of Systems: Review of Systems: Constitutional: Denies fever or chills. Eyes: Denies change in vision, pain. HENT: Denies congestion or sore throat. Respiratory: Admits shortness of breath, denies cough. Cardiovascular: Admits to chest pain, chronic edema. GI: Denies abdominal pain, nausea. : Denies change in urination, dysuria. Musculoskeletal: Admits to chronic joint pain, denies trauma. Skin: Denies rash, skin change. Neurologic: Admits to headache gradual onset after nitroglycerin, denies weakness focally. Psychiatric: Denies depression or anxiety. All other systems reviewed as negative except for what was mentioned in the HPI. Heart Score: C/O Chest Pain: Yes HEART Score for Chest Pain: HEART Score for Chest Pain Response (Comments) Value History Moderately Suspicious 1 ECG Nonspecific Repolarizatio 1 Age > 65 2 Risk Factors >3 Risk Factors or Hx CAD 2 Troponin < Normal Limit 0 Total 6 Allergies: Allergies: Allergies Coded Allergies Type Severity Reaction Last Updated Verified Niacin Preparations Allergy Intermediate 02/25/19 Yes oxaprozin Allergy Intermediate 02/25/19 Yes Physical Exam: PE: Constitutional: No acute distress, non-toxic appearance. HENT: Atraumatic, bilateral external ears normal, nose normal. Eyes: Conjunctiva normal, no discharge. Neck: Normal range of motion, supple, no stridor. Cardiovascular: Heart rate regular rhythm. 2+ radial pulses and equal Lungs & Thorax: No respiratory distress, symmetrical expansion. Chest wall: No reproducible chest wall tenderness to palpation, no lesions. Abdomen: Soft, no tenderness Skin: Warm, dry. Extremities: No tenderness, no cyanosis, ROM intact, chronic appearing 3+ edema to the lower extremities bilaterally Neurologic: Alert and oriented X 3, normal motor function, normal sensory function, no focal deficits noted. GCS 15. Psychologic: Affect normal, judgment normal, mood normal. Current Patient Data: Labs: Laboratory Tests Test 11/04/20 07:20 White Blood Count 7.2 x10^3/uL (4.0-11.0) Red Blood Count 4.80 x10^6/uL (3.50-5.40) Hemoglobin 14.5 g/dL (12.0-15.5) Hematocrit 41.7 % (36.0-47.0) Mean Corpuscular Volume 87 fL (79-100) Mean Corpuscular Hemoglobin 30 pg (25-35) Mean Corpuscular Hemoglobin Concent 35 g/dL (31-37) Red Cell Distribution Width 13.8 % (11.5-14.5) Platelet Count 264 x10^3/uL (140-400) Neutrophils (%) (Auto) 67 % (31-73) Lymphocytes (%) (Auto) 25 % (24-48) Monocytes (%) (Auto) 6 % (0-9) Eosinophils (%) (Auto) 1 % (0-3) Basophils (%) (Auto) 1 % (0-3) Neutrophils # (Auto) 4.8 x10^3/uL (1.8-7.7) Lymphocytes # (Auto) 1.8 x10^3/uL (1.0-4.8) Monocytes # (Auto) 0.4 x10^3/uL (0.0-1.1) Eosinophils # (Auto) 0.0 x10^3/uL (0.0-0.7) Basophils # (Auto) 0.1 x10^3/uL (0.0-0.2) Sodium Level 137 mmol/L (136-145) Potassium Level 3.3 mmol/L (3.5-5.1) Chloride Level 97 mmol/L (98-107) Carbon Dioxide Level 33 mmol/L (21-32) Anion Gap 7 (6-14) Blood Urea Nitrogen 15 mg/dL (7-20) Creatinine 1.0 mg/dL (0.6-1.0) Estimated GFR (Cockcroft-Gault) 54.7 Glucose Level 215 mg/dL (70-99) Calcium Level 9.1 mg/dL (8.5-10.1) Troponin I Quantitative < 0.017 ng/mL (0.000-0.055) FB-Sfg-I-Type Natriuretic Peptide 150 pg/mL (0-124) Vital Signs: Vital Signs Date Time Temp Pulse Resp B/P (MAP) Pulse Ox O2 Delivery O2 Flow Rate FiO2 11/04/20 08:21 73 121/61 11/04/20 07:56 76 143/57 11/04/20 07:10 97.7 81 20 162/73 (102) 96 Room Air 97.7 EKG: EK: Ventricularly paced rhythm rate of 71, T wave inversions in aVL, V2, no reciprocal change, no ectopic beats, left axis deviation, QRS wide at 174. Impression: Paced rhythm, no STEMI. interpreted by meNeno D.O. Radiology/Procedures: Radiology/Procedures: XR CHEST 1V History: Chest pain Comparison: 05/28/2018 Technique: Portable AP radiograph of the chest. Findings: Left chest dual-chamber cardiac pacemaker. The lungs are adequately inflated. No airspace consolidation, pleural effusion or pneumothorax. Cephalized, indistinct pulmonary vasculature. Stable enlarged cardiac silhouette. Degenerative changes of the neck and shoulders. Soft tissues are unremarkable. Impression: 1. Pulmonary vascular congestion. Electronically signed by: Gurmeet Biggs MD (11/04/2020 8:27 AM Course & Med Decision Making: Course & Med Decision Making patient with heart score as above, will admit for acs rule out to Dr. Zhong, vital signs stable, no STEMI on ekg, first trop neg Departure Departure Impression: Primary Impression: Chest pain Disposition: ADMITTED INPATIENT Admitting Physician: VINICIUS Krishnamurthy) Condition: STABLE Referrals: HONEY SOLOMON MD (PCP) NENO ROACH DO Nov 04, 2020 07:25
[2020-11-04 07:50] LABS: BASO # 0.1 x10^3/uL (0.0-0.2); BASO % 1 % (0-3); EOS % 1 % (0-3); HEMATOCRIT 41.7 % (36.0-47.0); HEMOGLOBIN 14.5 g/dL (12.0-15.5); LYMPH # 1.8 x10^3/uL (1.0-4.8); LYMPH % 25 % (24-48); MEAN CORPUSCULAR HEMOGLOBIN 30 pg (25-35); MEAN CORPUSCULAR HGB CONC 35 g/dL (31-37); MEAN CORPUSCULAR VOLUME 87 fL (79-100); MONO # 0.4 x10^3/uL (0.0-1.1); MONO % 6 % (0-9); NEUT # 4.8 x10^3/uL (1.8-7.7); NEUT % 67 % (31-73); PLATELET COUNT 264 x10^3/uL (140-400); RED CELL DISTRIBUTION WIDTH 13.8 % (11.5-14.5); WHITE BLOOD COUNT 7.2 x10^3/uL (4.0-11.0)
[2020-11-04] MEDS: NITROGLYCERIN SUBLINGUAL 0.4 MG BOTTLE OF 25. SL PRN ×2 (07:56→08:21)
[2020-11-04 07:57] LABS: CALCIUM 9.1 mg/dL (8.5-10.1); GFR 54.7; POTASSIUM 3.3 mmol/L (3.5-5.1)
--- NOTE | 2020-11-04 08:29 | RAD ---
XR CHEST 1V History: Chest pain Comparison: 05/28/2018 Technique: Portable AP radiograph of the chest. Findings: Left chest dual-chamber cardiac pacemaker. The lungs are adequately inflated. No airspace consolidati on, pleural effusion or pneumothorax. Cephalized, indistinct pulmonary vasculature. Stable enlarged c ardiac silhouette. Degenerative changes of the neck and shoulders. Soft tissues are unremarkable. Impression: 1. Pulmonary vascular congestion. Electronically signed by: Gurmeet Biggs MD (11/04/2020 8:27 AM) [id number]
[2020-11-04] MEDS ORDERED: MORPHINE SULFATE 4 MG/ML INJ. IVP PRN (08:45)
[2020-11-04] MEDS ORDERED: ONDANSETRON PF 4 MG/2 ML VIAL. IVP PRN ×2 (08:45→10:00)
[2020-11-04] MEDS ORDERED: NITROGLYCERIN SUBLINGUAL 0.4 MG BOTTLE OF 25. SL PRN (08:45)
[2020-11-04] MEDS ORDERED: ACETAMINOPHEN 325 MG TABLET. PO PRN ×2 (08:45→10:00)
--- NOTE | 2020-11-04 08:49 | PDOC1 ---
History and Physical Date of Admission Date of Admission DATE: 11/04/20 TIME: 08:45 Identification/Chief Complaint Chief Complaint Chest pain Source Source: Patient History of Present Illness History of Present Illness Patient is a 69-year-old female with past medical history third-degree heart block s/p pacemaker, DM2, HTN, HLD, GERD, hypothyroidism, who presents to the ED with complaints of chest pain that started 2 AM this morning. She reports intermittent chest pain that feels more like pressure, 7/10. She reports some associated shortness of breath and weakness. She denies any fever, nausea, or vomiting. She normally gets around using a scooter secondary to chronic weakness and history of falls, however this morning she is weaker than baseline. Labs in the ED showed troponin <0.017, CBG 215, BNP 150, potassium 3.3. EKG with no ST changes. Chest x-ray showing pulmonary vascular congestion. She states she is on a diuretic but cannot recall the name. States her meeting planner is Dr. Lakia dougherty. She has been vaccinated against COVID-19. Will admit patient for further medical management. Past Medical History Cardiovascular: HTN, Hyperlipidemia, Other (Third-degree heart block s/p pacemaker) Pulmonary: Pneumonia CENTRAL NERVOUS SYSTEM: Periperal neuropathy, TIA GI: GERD Heme/Onc: No pertinent hx Hepatobiliary: No pertinent hx Psych: Anxiety, Depression Musculoskeletal: Osteoarthritis Rheumatologic: Fibromyalgia Infectious disease: No pertinent hx Renal/: UTI Endocrine: Diabetes, Hypothyroidism Past Surgical History Past Surgical History: Pacemaker, Cholecystectomy, Hernia Repair, Other Family History Family History: Cancer, Diabetes, Hypertension Social History Smoke: No ALCOHOL: none Drugs: None Current Problem List Problem List Problems Medical Problems: (1) Chest pain Status: Acute Current Medications Current Medications Current Medications Nitroglycerin (Nitrostat) 0.4 mg PRN Q5MIN PRN SL CP RATING > 1/10 Last administered on 11/04/20at 08:21; Start 11/04/20 at 07:30; Stop 11/05/20 at 07:29 Ondansetron HCl (Zofran) 4 mg PRN Q8HRS PRN IVP NAUSEA/VOMITING; Start 11/04/20 at 08:45; Stop 11/05/20 at 08:44 Morphine Sulfate (Morphine Sulfate) 4 mg PRN Q4HRS PRN IVP PAIN; Start 11/04/20 at 08:45; Stop 11/05/20 at 08:44 Acetaminophen (Tylenol) 650 mg PRN Q4HRS PRN PO FEVER > 100.3'F; Start 11/04/20 at 08:45; Stop 11/05/20 at 08:44 Nitroglycerin (Nitrostat) 0.4 mg PRN Q5MIN PRN SL CHEST PAIN; Start 11/04/20 at 08:45; Stop 11/05/20 at 08:44 Active Scripts Active Macrobid 100 Mg Capsule (Nitrofurantoin Monohyd/M-Cryst) 100 Mg Capsule 1 Cap PO BID Synthroid (Levothyroxine Sodium) 50 Mcg Tablet 50 Mcg PO DAILY06 30 Days Actos (Pioglitazone Hcl) 15 Mg Tablet 45 Mg PO DAILY 30 Days Dicyclomine Hcl 10 Mg Capsule 10 Mg PO PRN TID PRN 30 Days Reported Requip (Ropinirole Hcl) 0.5 Mg Tablet 1 Tab PO QHS Lyrica (Pregabalin) 150 Mg Capsule 1 Cap PO BID Biotin 10,000 Mcg Capsule 10,000 Mcg PO DAILY B-12 (Cyanocobalamin (Vitamin B-12)) 1,000 Mcg Tablet 1,000 Mcg PO DAILY Vitamin D2 (Ergocalciferol (Vitamin D2)) 50,000 Unit Capsule 1 Cap PO WEEKLY Omeprazole 20 Mg Capsule.dr 20 Mg PO BID Triamterene-Hctz 37.5-25 Mg Tb (Triamterene/Hydrochlorothiazid) 1 Each Tablet 1 Tab PO DAILY Metformin Hcl 1,000 Mg Tablet 1,000 Mg PO BIDWMEALS Pravastatin Sodium 40 Mg Tablet 1 Tab PO DAILY Zoloft (Sertraline Hcl) 100 Mg Tablet 1 Tab PO DAILY Oxycodone-Acetaminophen 10-325 (Oxycodone Hcl/Acetaminophen) 1 Each Tablet 1 Each PO PRN Q8HRS PRN Allergies Allergies: Coded Allergies: Niacin Preparations (Verified Allergy, Intermediate, 02/25/19) oxaprozin (Verified Allergy, Intermediate, 02/25/19) ROS Review of System GENERAL: No history of weight change, weakness or fevers. SKIN: No bruising, hair changes or rashes. EYES: No blurred, double or loss of vision. NOSE AND THROAT: No history of nosebleeds, hoarseness or sore throat. HEART: Chest pain. Denies palpitations. LUNGS: Shortness of breath. Denies cough, hemoptysis, or wheezing. GASTROINTESTINAL: Denies nausea, vomiting, abdominal pain. GENITOURINARY: Denies dysuria, frequency, urgency, hematuria. NEUROLOGIC: Denies history of numbness, tingling, tremor or weakness. PSYCHIATRIC: Denies anxiety, denies depression. ENDOCRINE: No history of heat or cold intolerance, polyuria or polydipsia. EXTREMITIES: Denies muscle weakness, joint pain, pain on walking or stiffness. Physical Exam Physical Exam General: Alert, Oriented X3, Cooperative, No acute distress. Morbidly obese. HEENT: PERRLA, EOMI Lungs: Decreased breath sounds bilaterally. Normal air movement. Heart: RRR, no murmurs. Pacemaker left chest wall. Cardiovascular: S1, S2 Abdomen: Normal bowel sounds, Soft, No tenderness Extremities: No clubbing, No cyanosis. Bilateral lower extremity edema. Skin: No rashes, No significant lesion Neuro: Normal speech, Normal tone, Sensation intact Psych/Mental Status: Mental status NL, Mood NL Vitals Vitals Vital Signs Date Time Temp Pulse Resp B/P (MAP) Pulse Ox O2 Delivery O2 Flow Rate FiO2 11/04/20 08:21 73 121/61 11/04/20 07:10 97.7 20 96 Room Air 97.7 Labs Labs Laboratory Tests Test 11/04/20 07:20 White Blood Count 7.2 x10^3/uL (4.0-11.0) Red Blood Count 4.80 x10^6/uL (3.50-5.40) Hemoglobin 14.5 g/dL (12.0-15.5) Hematocrit 41.7 % (36.0-47.0) Mean Corpuscular Volume 87 fL (79-100) Mean Corpuscular Hemoglobin 30 pg (25-35) Mean Corpuscular Hemoglobin Concent 35 g/dL (31-37) Red Cell Distribution Width 13.8 % (11.5-14.5) Platelet Count 264 x10^3/uL (140-400) Neutrophils (%) (Auto) 67 % (31-73) Lymphocytes (%) (Auto) 25 % (24-48) Monocytes (%) (Auto) 6 % (0-9) Eosinophils (%) (Auto) 1 % (0-3) Basophils (%) (Auto) 1 % (0-3) Neutrophils # (Auto) 4.8 x10^3/uL (1.8-7.7) Lymphocytes # (Auto) 1.8 x10^3/uL (1.0-4.8) Monocytes # (Auto) 0.4 x10^3/uL (0.0-1.1) Eosinophils # (Auto) 0.0 x10^3/uL (0.0-0.7) Basophils # (Auto) 0.1 x10^3/uL (0.0-0.2) Sodium Level 137 mmol/L (136-145) Potassium Level 3.3 mmol/L (3.5-5.1) Chloride Level 97 mmol/L (98-107) Carbon Dioxide Level 33 mmol/L (21-32) Anion Gap 7 (6-14) Blood Urea Nitrogen 15 mg/dL (7-20) Creatinine 1.0 mg/dL (0.6-1.0) Estimated GFR (Cockcroft-Gault) 54.7 Glucose Level 215 mg/dL (70-99) Calcium Level 9.1 mg/dL (8.5-10.1) Troponin I Quantitative < 0.017 ng/mL (0.000-0.055) UZ-Ceq-D-Type Natriuretic Peptide 150 pg/mL (0-124) Laboratory Tests Test 11/04/20 07:20 White Blood Count 7.2 x10^3/uL (4.0-11.0) Red Blood Count 4.80 x10^6/uL (3.50-5.40) Hemoglobin 14.5 g/dL (12.0-15.5) Hematocrit 41.7 % (36.0-47.0) Mean Corpuscular Volume 87 fL (79-100) Mean Corpuscular Hemoglobin 30 pg (25-35) Mean Corpuscular Hemoglobin Concent 35 g/dL (31-37) Red Cell Distribution Width 13.8 % (11.5-14.5) Platelet Count 264 x10^3/uL (140-400) Neutrophils (%) (Auto) 67 % (31-73) Lymphocytes (%) (Auto) 25 % (24-48) Monocytes (%) (Auto) 6 % (0-9) Eosinophils (%) (Auto) 1 % (0-3) Basophils (%) (Auto) 1 % (0-3) Neutrophils # (Auto) 4.8 x10^3/uL (1.8-7.7) Lymphocytes # (Auto) 1.8 x10^3/uL (1.0-4.8) Monocytes # (Auto) 0.4 x10^3/uL (0.0-1.1) Eosinophils # (Auto) 0.0 x10^3/uL (0.0-0.7) Basophils # (Auto) 0.1 x10^3/uL (0.0-0.2) Sodium Level 137 mmol/L (136-145) Potassium Level 3.3 mmol/L (3.5-5.1) Chloride Level 97 mmol/L (98-107) Carbon Dioxide Level 33 mmol/L (21-32) Anion Gap 7 (6-14) Blood Urea Nitrogen 15 mg/dL (7-20) Creatinine 1.0 mg/dL (0.6-1.0) Estimated GFR (Cockcroft-Gault) 54.7 Glucose Level 215 mg/dL (70-99) Calcium Level 9.1 mg/dL (8.5-10.1) Troponin I Quantitative < 0.017 ng/mL (0.000-0.055) UI-Dsm-O-Type Natriuretic Peptide 150 pg/mL (0-124) Images Images PATIENT: FRIEDA BRIZUELA ACCOUNT: [id number] : 1950 LOCATION: ER AGE: 69 SEX: F EXAM STATUS: REG ER ORD. PHYSICIAN: VICKY ROACH DO REASON: chest pain PROCEDURE: PORTABLE CHEST 1V XR CHEST 1V History: Chest pain Comparison: 05/28/2018 Technique: Portable AP radiograph of the chest. Findings: Left chest dual-chamber cardiac pacemaker. The lungs are adequately inflated. No airspace consolidation, pleural effusion or pneumothorax. Cephalized, indistinct pulmonary vasculature. Stable enlarged cardiac silhouette. Degenerative changes of the neck and shoulders. Soft tissues are unremarkable. Impression: 1. Pulmonary vascular congestion. VTE Prophylaxis Ordered VTE Prophylaxis Devices: No VTE Pharmacological Prophylaxi: Yes Assessment/Plan Assessment/Plan Chest pain DM2 with hyperglycemia HTN GERD Hypothyroidism Fibromyalgia Plan: Consultation placed to cardiology Troponin <0.017; will continue to trend. Symptoms possibly secondary to vascular congestion seen on chest x-ray; this may just require diuretic adjustment. Morphine, nitroglycerin as needed Lipid panel pending Recent echocardiogram in August 2020 showed normal LV systolic function, with ejection fraction 50%, no significant aortic valvular stenosis. Currently not inclined to repeat echocardiogram, unless cardiology feels otherwise. Basal/prandial insulin Telemetry Resume home medications FEN - Cardiac diet PPX - Heparin FULL CODE Dispo - inpatient for above Patient names her (Toni Brizuela) as surrogate decision-maker Justifications for Admission Other Justification LIZETH MAJOR MD Nov 04, 2020 08:49
[2020-11-04] MEDS ORDERED: DICYCLOMINE HCL 10 MG CAPSULE PO PRN (09:45)
[2020-11-04] MEDS ORDERED: MAGNESIUM HYDROXIDE 2,400 MG/30 ML ORAL.SUSP. PO PRN (10:00)
[2020-11-04] MEDS ORDERED: MAG HYDROX/ALUMINUM HYD/SIMETH 30 ML ORAL.SUSP PO PRN (10:00)
[2020-11-04] MEDS ORDERED: CALCIUM CARBONATE 500 MG TAB.CHEW PO PRN (10:00)
[2020-11-04] MEDS ORDERED: POTASSIUM CHLORIDE 20 MEQ TABLET.ER. PO ONE ×2 (10:00→15:15)
[2020-11-04] MEDS ORDERED: ZOLPIDEM 5 MG TABLET. PO PRN (10:00)
[2020-11-04] MEDS: PANTOPRAZOLE 40 MG TABLET.DR. PO SCH (10:01)
[2020-11-04] MEDS: SERTRALINE 50 MG TABLET. PO SCH (10:01)
[2020-11-04] MEDS: TRIAMTERENE/HCTZ 37.5/25MG TABLET. PO SCH (10:01)
[2020-11-04] MEDS: LEVOTHYROXINE 50 MCG TABLET PO SCH (10:01)
[2020-11-04] MEDS: ENOXAPARIN 40 MG/0.4 ML SYRINGE. SQ SCH ×2 (11:17→20:55)
[2020-11-04] MEDS: oxyCODONE/APAP 10/325 1 TAB TABLET PO PRN ×2 (11:24→20:55)
--- NOTE | 2020-11-04 14:59 | PDOC2 ---
ALPESH CASIANO EXTRUDING PRESS ADJUSTER 11/04/20 1459: CARDIAC CONSULT DATE OF CONSULT Date of Consult DATE: 11/04/20 TIME: 14:30 REASON FOR CONSULT Reason for Consult: Chest pain REFERRING PHYSICIAN Referring Physician: Felix SOURCE Source: Chart review, Patient HISTORY OF PRESENT ILLNESS HISTORY OF PRESENT ILLNESS This is a 69 yo female admitted for complains of chest pain. Described it as pressure on her chest. This is associated with SOA, nausea and has been having some neck discomfort. She has been feeling more tired and could not do much. Denies any falls or any recent injury. No cough fever or chills. Positive for LY. No prior hx of CAD. Her last stress test was many yrs ago. PAST MEDICAL HISTORY Past Medical History Cardiovascular: HTN, Hyperlipidemia, SSS Pulmonary: Pneumonia CENTRAL NERVOUS SYSTEM: Periperal neuropathy, TIA GI: GERD Heme/Onc: No pertinent hx Hepatobiliary: No pertinent hx Psych: Anxiety, Depression Musculoskeletal: Osteoarthritis Rheumatologic: No pertinent hx Infectious disease: No pertinent hx ENT: No pertinent hx Renal/: UTI Endocrine: Diabetes, Hypothyroidism Dermatology: No pertinent hx PAST SURGICAL HISTORY Past Surgical History Cholecystectomy, Hernia Repair, Other (right knee surgery), PPM FAMILY HISTORY Family History: Diabetes, Hypertension SOCIAL HISTORY Smoke: No ALCOHOL: none Drugs: None Lives: with Family CURRENT MEDICATIONS CURRENT MEDICATIONS Current Medications Medications (Trade) Dose Ordered Sig/Vanda Route PRN Reason Start Time Stop Time Status Last Admin Dose Admin Nitroglycerin (Nitrostat) 0.4 mg PRN Q5MIN PRN SL CP RATING > 1/10 11/04/20 07:30 11/05/20 07:29 11/04/20 08:21 Potassium Chloride (Klor-Con) 40 meq 1X ONCE PO 11/04/20 10:00 11/04/20 10:02 DC 11/04/20 10:01 Levothyroxine Sodium (Synthroid) 50 mcg DAILY06 PO 11/04/20 10:30 11/04/20 10:01 Oxycodone/ Acetaminophen (Percocet 10/325) 1 tab PRN Q8HRS PRN PO PAIN 11/04/20 09:45 11/04/20 11:24 Triamterene/HCTZ (Maxzide 37.5/ 25mg) 1 tab DAILY PO 11/04/20 10:30 11/04/20 10:01 Pantoprazole Sodium (Protonix) 40 mg DAILYAC PO 11/04/20 10:00 11/04/20 10:01 Sertraline HCl (Zoloft) 100 mg DAILY PO 11/04/20 10:30 11/04/20 10:01 Enoxaparin Sodium (Lovenox 40mg Syringe) 40 mg Q12HR SQ 11/04/20 11:00 11/04/20 11:17 ALLERGIES ALLERGIES: Coded Allergies: Niacin Preparations (Verified Allergy, Intermediate, 02/25/19) oxaprozin (Verified Allergy, Intermediate, 02/25/19) ROS Review of System 14 point ROS evaluated with pertinent positives noted per HPI PHYSICAL EXAM General: Alert, Oriented X3, Cooperative, No acute distress HEENT: Atraumatic, Mucous membr. moist/pink Lungs: Clear to auscultation, Normal air movement Heart: Regular rate (paced), Normal S1, Normal S2, No murmurs Abdomen: Normal bowel sounds, Soft, No tenderness, Other (obese) Extremities: No cyanosis, No edema Skin: No breakdown, No significant lesion Neuro: Normal speech, Sensation intact Psych/Mental Status: Mental status NL, Mood NL MUSCULOSKELETAL: Osteoarthritic changes both hands VITALS/I&O VITALS/I&O: Vital Signs Date Time Temp Pulse Resp B/P (MAP) Pulse Ox O2 Delivery O2 Flow Rate FiO2 11/04/20 11:24 16 94 Room Air 11/04/20 11:20 70 131/55 (80) 11/04/20 07:10 97.7 97.7 LABS Lab: Laboratory Tests Test 11/04/20 07:20 11/04/20 10:26 11/04/20 13:20 White Blood Count 7.2 x10^3/uL (4.0-11.0) Red Blood Count 4.80 x10^6/uL (3.50-5.40) Hemoglobin 14.5 g/dL (12.0-15.5) Hematocrit 41.7 % (36.0-47.0) Mean Corpuscular Volume 87 fL (79-100) Mean Corpuscular Hemoglobin 30 pg (25-35) Mean Corpuscular Hemoglobin Concent 35 g/dL (31-37) Red Cell Distribution Width 13.8 % (11.5-14.5) Platelet Count 264 x10^3/uL (140-400) Neutrophils (%) (Auto) 67 % (31-73) Lymphocytes (%) (Auto) 25 % (24-48) Monocytes (%) (Auto) 6 % (0-9) Eosinophils (%) (Auto) 1 % (0-3) Basophils (%) (Auto) 1 % (0-3) Neutrophils # (Auto) 4.8 x10^3/uL (1.8-7.7) Lymphocytes # (Auto) 1.8 x10^3/uL (1.0-4.8) Monocytes # (Auto) 0.4 x10^3/uL (0.0-1.1) Eosinophils # (Auto) 0.0 x10^3/uL (0.0-0.7) Basophils # (Auto) 0.1 x10^3/uL (0.0-0.2) Sodium Level 137 mmol/L (136-145) Potassium Level 3.3 mmol/L (3.5-5.1) L Chloride Level 97 mmol/L (98-107) L Carbon Dioxide Level 33 mmol/L (21-32) H Anion Gap 7 (6-14) Blood Urea Nitrogen 15 mg/dL (7-20) Creatinine 1.0 mg/dL (0.6-1.0) Estimated GFR (Cockcroft-Gault) 54.7 Glucose Level 215 mg/dL (70-99) H Calcium Level 9.1 mg/dL (8.5-10.1) Troponin I Quantitative < 0.017 ng/mL (0.000-0.055) < 0.017 ng/mL (0.000-0.055) < 0.017 ng/mL (0.000-0.055) FO-Xud-Z-Type Natriuretic Peptide 150 pg/mL (0-124) H Triglycerides Level 225 mg/dL (0-150) H Cholesterol Level 157 mg/dL (0-200) LDL Cholesterol, Calculated 73 mg/dL (0-100) VLDL Cholesterol, Calculated 45 mg/dL (0-40) H Non-HDL Cholesterol Calculated 118 mg/dL (0-129) HDL Cholesterol 39 mg/dL (40-60) L Cholesterol/HDL Ratio 4.0 Laboratory Tests 11/04/20 07:20 Laboratory Tests 11/04/20 07:20 ECHOCARDIOGRAM ECHOCARDIOGRAM <Conclusion> The left ventricle is normal size. The systolic function is low normal. Estimated LV ejection fraction of 50%. Doppler and Color Flow revealed no significant aortic regurgitation. There is no significant aortic valvular stenosis. Doppler and Color-flow revealed trace mitral regurgitation. Doppler and Color Flow revealed no tricuspid valve regurgitation noted. DATE: 09/07/20 [id number] ASSESSMENT/PLAN ASSESSMENT/PLAN 1. Chest pain: Recent EF and WM nml via TTE. trops nml. UA features 2. SSS with PPM in situ: recent device check with nml function, no arrhythmias 3. HTN: controlled with maxide 4. HLP 5. Diabetes, II 6. Hypothyroidism: on replacement 7. Acute on chronic diastolic CHF 8. Morbid obesity Recommendations 1. Maxide received today. Will check LVEDP and will note further need of lasix. Replace K 2. Continue statin. 3. ASA 4. Hold metformin. [facility] today risks and benefits discussed and agreeable to proceed. RANDAL LIVE MD 11/04/20 1706: CARDIAC CONSULT ASSESSMENT/PLAN ASSESSMENT/PLAN Pt. seen and examined. Agree with above EFFICIENCY MANAGER note. No clear CV source of symptoms. Cath is unremarkable. Supportive care and pain control for chronic MSK issues. Thanks ALPESH CASIANO APRN Nov 04, 2020 14:59 RANDAL LIVE MD Nov 04, 2020 17:06
[2020-11-04] MEDS ORDERED: FUROSEMIDE 40 MG/4 ML VIAL. IVP ONE (15:15)
[2020-11-04] MEDS ORDERED: IODIXANOL 320 MG/ML 100 ML VIAL. ONE (15:53)
[2020-11-04] MEDS ORDERED: LIDOCAINE 1% PF 2 ML VIAL. ONE (15:54)
[2020-11-04] MEDS ORDERED: MIDAZOLAM HCL/PF 2 MG/2 ML VIAL. ONE ×2 (16:03→16:37)
[2020-11-04] MEDS ORDERED: fentaNYL PF VIAL 100 MCG/2 ML VIAL ONE (16:03)
[2020-11-04] MEDS ORDERED: HEPARIN for IV BOLUS 10,000 UNIT/10 ML VIAL. ONE (16:03)
[2020-11-04] MEDS ORDERED: NITROGLYCERIN 200 MCG/2 ML SYRINGE FOR CATH/VASC LAB. ONE (16:03)
[2020-11-04] MEDS ORDERED: VERAPAMIL 5 MG/2 ML VIAL. ONE (16:03)
--- NOTE | 2020-11-04 16:38 | PDOC ---
MODERATE SEDATION ASSESSMENT RISKS/ALTERNATIVES Risks/Alternatives Risks and alternatives of this type of sedation and procedure discussed with: RISK/ALTERNATIVES: Patient H & P ON CHART H & P H & P on chart and reviewed for co-morbid conditions and appropriate labs. H&P ON CHART: Yes STATUS PREG STATUS ASSESSED: No MEDS/ALLERGIES REVIEWED Meds/Allergies Reviewed Medications and Allergies including time and route of recently administered narcotics and sedatives. MEDS/ALLERGIES REVIEWED: Yes ASA RATING ASA RATING: II AIRWAY ASSESSMENT Airway Assessment Airway patency, oral function limitations, presence of caps, crowns, dentures, partials, and ability to extend neck assessed. AIRWAY ASSESSMENT: Yes MALLAMPATI SCORE MALLAMPATI SCORE: II PRE-SEDATION ASSESSMENT PRE-SEDATION ASSESSMENT: Yes RANDAL LIVE MD Nov 04, 2020 16:38
[2020-11-04] MEDS ORDERED: VERAPAMIL 5 MG/2 ML VIAL. IART ONE (16:45)
[2020-11-04] MEDS ORDERED: IODIXANOL 320 MG/ML 100 ML VIAL. IART ONE (16:45)
[2020-11-04] MEDS ORDERED: HEPARIN for IV BOLUS 10,000 UNIT/10 ML VIAL. IART ONE (16:45)
[2020-11-04] MEDS ORDERED: MIDAZOLAM HCL/PF 2 MG/2 ML VIAL. IV ONE (16:45)
[2020-11-04] MEDS ORDERED: fentaNYL PF VIAL 100 MCG/2 ML VIAL IV ONE (16:45)
[2020-11-04] MEDS ORDERED: NITROGLYCERIN 200 MCG/2 ML SYRINGE FOR CATH/VASC LAB. IART ONE (16:45)
[2020-11-04] MEDS ORDERED: LIDOCAINE 1% PF 2 ML VIAL. INJ ONE (16:45)
[2020-11-04 17:02] VITALS: BP 136/67
[2020-11-04 17:15] VITALS: BP 136/60
[2020-11-04] MEDS ORDERED: ROPI1TAB4 PO (18:10)
[2020-11-04] MEDS ORDERED: INFLUENZA VAX SCREEN BY RX. MC PRN (19:00)
[2020-11-04] MEDS ORDERED: FLU VACC QUAD 21-22 (6MOS+) PF 0.5 ML SYRINGE. VAX IM ONE (19:00)
[2020-11-04 19:40] VITALS: BP 138/60
--- NOTE | 2020-11-04 19:40 | NUR ---
Pt in bed, assessment completed vss poc explained pt c/o chronic pain will medicate pt and resume care. Call light in reach pt at bedside and visiting hour policy explained to pt and pt .
[2020-11-04] MEDS: PREGABALIN 75 MG CAPSULE PO SCH (20:55)
[2020-11-04] MEDS ORDERED: rOPINIRole 1 MG TABLET. PO SCH (21:00)
[2020-11-04] MEDS ORDERED: ATORVASTATIN CALCIUM 10 MG TABLET. PO SCH (21:00)
[2020-11-04] MEDS ORDERED: rOPINIRole 0.25 MG TABLET. PO SCH (21:00)
[2020-11-04 22:58] VITALS: BP 167/69
[2020-11-05 02:52] VITALS: BP 130/60
[2020-11-05 03:41] LABS: BASO # 0.1 x10^3/uL (0.0-0.2); BASO % 1 % (0-3); EOS % 1 % (0-3); HEMATOCRIT 38.1 % (36.0-47.0); HEMOGLOBIN 13.1 g/dL (12.0-15.5); LYMPH # 1.9 x10^3/uL (1.0-4.8); LYMPH % 30 % (24-48); MEAN CORPUSCULAR HEMOGLOBIN 30 pg (25-35); MEAN CORPUSCULAR HGB CONC 34 g/dL (31-37); MEAN CORPUSCULAR VOLUME 88 fL (79-100); MONO # 0.5 x10^3/uL (0.0-1.1); MONO % 7 % (0-9); NEUT # 3.9 x10^3/uL (1.8-7.7); NEUT % 61 % (31-73); PLATELET COUNT 232 x10^3/uL (140-400); RED BLOOD COUNT 4.34 x10^6/uL (3.50-5.40); RED CELL DISTRIBUTION WIDTH 13.9 % (11.5-14.5); WHITE BLOOD COUNT 6.4 x10^3/uL (4.0-11.0)
[2020-11-05 03:53] LABS: CALCIUM 8.1 mg/dL (8.5-10.1); GFR 54.7
[2020-11-05 04:20] LABS: POTASSIUM 2.9 mmol/L (3.5-5.1)
[2020-11-05] MEDS ORDERED: POTASSIUM CHLORIDE 20 MEQ TABLET.ER. PO ONE (04:30)
[2020-11-05] MEDS: PANTOPRAZOLE 40 MG TABLET.DR. PO SCH (04:55)
[2020-11-05] MEDS: LEVOTHYROXINE 50 MCG TABLET PO SCH (04:55)
[2020-11-05 07:00] VITALS: BP 132/62
[2020-11-05] MEDS: oxyCODONE/APAP 10/325 1 TAB TABLET PO PRN (09:09)
[2020-11-05] MEDS: PREGABALIN 75 MG CAPSULE PO SCH (09:09)
[2020-11-05] MEDS: TRIAMTERENE/HCTZ 37.5/25MG TABLET. PO SCH (09:09)
[2020-11-05] MEDS: ENOXAPARIN 40 MG/0.4 ML SYRINGE. SQ SCH (09:10)
[2020-11-05] MEDS: SERTRALINE 50 MG TABLET. PO SCH (09:10)
--- NOTE | 2020-11-05 10:27 | PDOC ---
PROGRESS NOTES Date of Service: DATE: 11/05/20 TIME: 10:26 Chief Complaint Chief Complaint VTE Prophylaxis Ordered VTE Prophylaxis Devices: No VTE Pharmacological Prophylaxi: Yes complications none consults cardiology discharge dx Assessment/Plan Chest pain, ATYPICAL DM2 with hyperglycemia HTN GERD Hypothyroidism Fibromyalgia hypokalemia 2.9 Plan: Consultation placed to cardiology Troponin <0.017; will continue to trend. Symptoms possibly secondary to vascular congestion seen on chest x-ray; this may just require diuretic adjustment. Morphine, nitroglycerin as needed Lipid panel pending Recent echocardiogram in August 2020 showed normal LV systolic function, with ejection fraction 50%, no significant aortic valvular stenosis. Currently not inclined to repeat echocardiogram, unless cardiology feels otherwise. Basal/prandial insulin Telemetry Resume home medications FEN - Cardiac diet PPX - Heparin FULL CODE Dispo - inpatient for above Patient names her (Toni Ritter) as surrogate decision-maker replace k Justifications for Admission Justifications for Admission Other Justification History of Present Illness History of Present Illness Identification/Chief Complaint Chief Complaint Chest pain Source Source: Patient History of Present Illness History of Present Illness Patient is a 69-year-old female with past medical history third-degree heart block s/p pacemaker, DM2, HTN, HLD, GERD, hypothyroidism, who presents to the ED with complaints of chest pain that started 2 AM this morning. She reports intermittent chest pain that feels more like pressure, 7/10. She reports some associated shortness of breath and weakness. She denies any fever, nausea, or vomiting. She normally gets around using a scooter secondary to chronic weakness and history of falls, however this morning she is weaker than baseline. Labs in the ED showed troponin <0.017, CBG 215, BNP 150, potassium 3.3. EKG with no ST changes. Chest x-ray showing pulmonary vascular congestion. She states she is on a diuretic but cannot recall the name. 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 She has been vaccinated against COVID-19. Will admit patient for further medical management. Past Medical History Cardiovascular: HTN, Hyperlipidemia, Other (Third-degree heart block s/p pacemaker) Pulmonary: Pneumonia CENTRAL NERVOUS SYSTEM: Periperal neuropathy, TIA GI: GERD Heme/Onc: No pertinent hx Hepatobiliary: No pertinent hx Psych: Anxiety, Depression Musculoskeletal: Osteoarthritis Rheumatologic: Fibromyalgia Infectious disease: No pertinent hx Renal/: UTI Endocrine: Diabetes, Hypothyroidism Past Surgical History Past Surgical History: Pacemaker, Cholecystectomy, Hernia Repair, Other Family History Family History: Cancer, Diabetes, Hypertension Social History Smoke: No ALCOHOL: none Drugs: None Current Problem List Problem List Problems Medical Problems: (1) Chest pain Status: Acute Current Medications Current Medications Current Medications Nitroglycerin (Nitrostat) 0.4 mg PRN Q5MIN PRN SL CP RATING > 1/10 Last administered on 11/04/20at 08:21; Start 11/04/20 at 07:30; Stop 11/05/20 at 07:29 Ondansetron HCl (Zofran) 4 mg PRN Q8HRS PRN IVP NAUSEA/VOMITING; Start 11/04/20 at 08:45; Stop 11/05/20 at 08:44 Morphine Sulfate (Morphine Sulfate) 4 mg PRN Q4HRS PRN IVP PAIN; Start 11/04/20 at 08:45; Stop 11/05/20 at 08:44 Acetaminophen (Tylenol) 650 mg PRN Q4HRS PRN PO FEVER > 100.3'F; Start 11/04/20 at 08:45; Stop 11/05/20 at 08:44 Nitroglycerin (Nitrostat) 0.4 mg PRN Q5MIN PRN SL CHEST PAIN; Start 11/04/20 at 08:45; Stop 11/05/20 at 08:44 Active Scripts Active Macrobid 100 Mg Capsule (Nitrofurantoin Monohyd/M-Cryst) 100 Mg Capsule 1 Cap PO BID Synthroid (Levothyroxine Sodium) 50 Mcg Tablet 50 Mcg PO DAILY06 30 Days Actos (Pioglitazone Hcl) 15 Mg Tablet 45 Mg PO DAILY 30 Days Dicyclomine Hcl 10 Mg Capsule 10 Mg PO PRN TID PRN 30 Days Reported Requip (Ropinirole Hcl) 0.5 Mg Tablet 1 Tab PO QHS Lyrica (Pregabalin) 150 Mg Capsule 1 Cap PO BID Biotin 10,000 Mcg Capsule 10,000 Mcg PO DAILY B-12 (Cyanocobalamin (Vitamin B-12)) 1,000 Mcg Tablet 1,000 Mcg PO DAILY Vitamin D2 (Ergocalciferol (Vitamin D2)) 50,000 Unit Capsule 1 Cap PO WEEKLY Omeprazole 20 Mg Capsule.dr 20 Mg PO BID Triamterene-Hctz 37.5-25 Mg Tb (Triamterene/Hydrochlorothiazid) 1 Each Tablet 1 Tab PO DAILY Metformin Hcl 1,000 Mg Tablet 1,000 Mg PO BIDWMEALS Pravastatin Sodium 40 Mg Tablet 1 Tab PO DAILY Zoloft (Sertraline Hcl) 100 Mg Tablet 1 Tab PO DAILY Oxycodone-Acetaminophen 10-325 (Oxycodone Hcl/Acetaminophen) 1 Each Tablet 1 Each PO PRN Q8HRS PRN Allergies Allergies: Coded Allergies: Niacin Preparations (Verified Allergy, Intermediate, 02/25/19) oxaprozin (Verified Allergy, Intermediate, 02/25/19) ROS Review of System GENERAL: No history of weight change, weakness or fevers. SKIN: No bruising, hair changes or rashes. EYES: No blurred, double or loss of vision. NOSE AND THROAT: No history of nosebleeds, hoarseness or sore throat. HEART: Chest pain. Denies palpitations. LUNGS: Shortness of breath. Denies cough, hemoptysis, or wheezing. GASTROINTESTINAL: Denies nausea, vomiting, abdominal pain. GENITOURINARY: Denies dysuria, frequency, urgency, hematuria. NEUROLOGIC: Denies history of numbness, tingling, tremor or weakness. PSYCHIATRIC: Denies anxiety, denies depression. ENDOCRINE: No history of heat or cold intolerance, polyuria or polydipsia. EXTREMITIES: Denies muscle weakness, joint pain, pain on walking or stiffness. ACCESS: The right wrist was prepped and draped in usual sterile fashion. Under 1% lidocaine local anesthesia a 6 [place] Terumo sheath was placed in the right radial artery via the Seldinger technique. DIAGNOSTIC ANGIOGRAPHY: Right and left coronary arteries were engaged with a 6 [place] TIG catheter. Diagnostic angiography in multiple views were obtained. Next, a 6 [place] p igtail catheter was placed in the left ventricle and a LVEDP was measured. A pullback was performed. All catheters were exchanged over J-tip guidewire. FINDINGS: ======= Aorta: 110/80 LVEDP: 15 mmHg Left ventriculogram: Deferred due to known normal EF. Coronary angiography: LM: Normal angiographic appearance. LAD: Normal angiographic appearance. LCx: Normal angiographic appearance. (Dominant) RCA: Normal angiographic appearance. CLOSURE: At case completion the right radial sheath was removed and a Terumo radial band was applied with 11 mL of air. Hemostasis was achieved. COMPLICATIONS: No acute complications noted Conclusion 1. Normal left sided filling pressures. 2. Normal angiographic appearance of the coronary arteries with a left dominant system. Recommendations Evaluation for non-cardiac causes of chest pain. Signed by : Randal Garcia, Electronically Approved : 11/05/2020 12:59:38 DICTATED and SIGNED BY: RANDAL GARCIA MD DATE: 11/04/20 [id number] Vitals Vitals Vital Signs Date Time Temp Pulse Resp B/P (MAP) Pulse Ox O2 Delivery O2 Flow Rate FiO2 11/05/20 09:39 Room Air 11/05/20 07:00 97.5 72 18 132/62 (85) 93 97.5 11/04/20 21:25 2.0 Physical Exam General: Alert, Oriented X3, Cooperative, No acute distress Heart: Regular rate (paced), Normal S1, Normal S2, No murmurs Lungs: Clear Abdomen: Normal bowel sounds, Soft, No tenderness, Other (obese) Extremities: No cyanosis, No edema Skin: No rashes, No breakdown, No significant lesion Labs LABS Laboratory Tests Test 11/04/20 13:20 11/05/20 03:15 Magnesium Level 1.8 mg/dL (1.8-2.4) Troponin I Quantitative < 0.017 ng/mL (0.000-0.055) White Blood Count 6.4 x10^3/uL (4.0-11.0) Red Blood Count 4.34 x10^6/uL (3.50-5.40) Hemoglobin 13.1 g/dL (12.0-15.5) Hematocrit 38.1 % (36.0-47.0) Mean Corpuscular Volume 88 fL (79-100) Mean Corpuscular Hemoglobin 30 pg (25-35) Mean Corpuscular Hemoglobin Concent 34 g/dL (31-37) Red Cell Distribution Width 13.9 % (11.5-14.5) Platelet Count 232 x10^3/uL (140-400) Neutrophils (%) (Auto) 61 % (31-73) Lymphocytes (%) (Auto) 30 % (24-48) Monocytes (%) (Auto) 7 % (0-9) Eosinophils (%) (Auto) 1 % (0-3) Basophils (%) (Auto) 1 % (0-3) Neutrophils # (Auto) 3.9 x10^3/uL (1.8-7.7) Lymphocytes # (Auto) 1.9 x10^3/uL (1.0-4.8) Monocytes # (Auto) 0.5 x10^3/uL (0.0-1.1) Eosinophils # (Auto) 0.0 x10^3/uL (0.0-0.7) Basophils # (Auto) 0.1 x10^3/uL (0.0-0.2) Sodium Level 139 mmol/L (136-145) Potassium Level 2.9 mmol/L (3.5-5.1) Chloride Level 100 mmol/L (98-107) Carbon Dioxide Level 34 mmol/L (21-32) Anion Gap 5 (6-14) Blood Urea Nitrogen 16 mg/dL (7-20) Creatinine 1.0 mg/dL (0.6-1.0) Estimated GFR (Cockcroft-Gault) 54.7 Glucose Level 193 mg/dL (70-99) Calcium Level 8.1 mg/dL (8.5-10.1) Assessment and Plan Assessmemt and Plan Problems Medical Problems: (1) Chest pain Status: Acute Comment Review of Relevant I have reviewed the following items andrés (where applicable) has been applied. Labs Laboratory Tests Test 11/04/20 07:20 11/04/20 10:26 11/04/20 13:20 11/05/20 03:15 White Blood Count 7.2 x10^3/uL (4.0-11.0) 6.4 x10^3/uL (4.0-11.0) Red Blood Count 4.80 x10^6/uL (3.50-5.40) 4.34 x10^6/uL (3.50-5.40) Hemoglobin 14.5 g/dL (12.0-15.5) 13.1 g/dL (12.0-15.5) Hematocrit 41.7 % (36.0-47.0) 38.1 % (36.0-47.0) Mean Corpuscular Volume 87 fL (79-100) 88 fL (79-100) Mean Corpuscular Hemoglobin 30 pg (25-35) 30 pg (25-35) Mean Corpuscular Hemoglobin Concent 35 g/dL (31-37) 34 g/dL (31-37) Red Cell Distribution Width 13.8 % (11.5-14.5) 13.9 % (11.5-14.5) Platelet Count 264 x10^3/uL (140-400) 232 x10^3/uL (140-400) Neutrophils (%) (Auto) 67 % (31-73) 61 % (31-73) Lymphocytes (%) (Auto) 25 % (24-48) 30 % (24-48) Monocytes (%) (Auto) 6 % (0-9) 7 % (0-9) Eosinophils (%) (Auto) 1 % (0-3) 1 % (0-3) Basophils (%) (Auto) 1 % (0-3) 1 % (0-3) Neutrophils # (Auto) 4.8 x10^3/uL (1.8-7.7) 3.9 x10^3/uL (1.8-7.7) Lymphocytes # (Auto) 1.8 x10^3/uL (1.0-4.8) 1.9 x10^3/uL (1.0-4.8) Monocytes # (Auto) 0.4 x10^3/uL (0.0-1.1) 0.5 x10^3/uL (0.0-1.1) Eosinophils # (Auto) 0.0 x10^3/uL (0.0-0.7) 0.0 x10^3/uL (0.0-0.7) Basophils # (Auto) 0.1 x10^3/uL (0.0-0.2) 0.1 x10^3/uL (0.0-0.2) Sodium Level 137 mmol/L (136-145) 139 mmol/L (136-145) Potassium Level 3.3 mmol/L (3.5-5.1) 2.9 mmol/L (3.5-5.1) Chloride Level 97 mmol/L (98-107) 100 mmol/L (98-107) Carbon Dioxide Level 33 mmol/L (21-32) 34 mmol/L (21-32) Anion Gap 7 (6-14) 5 (6-14) Blood Urea Nitrogen 15 mg/dL (7-20) 16 mg/dL (7-20) Creatinine 1.0 mg/dL (0.6-1.0) 1.0 mg/dL (0.6-1.0) Estimated GFR (Cockcroft-Gault) 54.7 54.7 Glucose Level 215 mg/dL (70-99) 193 mg/dL (70-99) Calcium Level 9.1 mg/dL (8.5-10.1) 8.1 mg/dL (8.5-10.1) Troponin I Quantitative < 0.017 ng/mL (0.000-0.055) < 0.017 ng/mL (0.000-0.055) < 0.017 ng/mL (0.000-0.055) WQ-Ylv-[id number]-Type Natriuretic Peptide 150 pg/mL (0-124) Triglycerides Level 225 mg/dL (0-150) Cholesterol Level 157 mg/dL (0-200) LDL Cholesterol, Calculated 73 mg/dL (0-100) VLDL Cholesterol, Calculated 45 mg/dL (0-40) Non-HDL Cholesterol Calculated 118 mg/dL (0-129) HDL Cholesterol 39 mg/dL (40-60) Cholesterol/HDL Ratio 4.0 Magnesium Level 1.8 mg/dL (1.8-2.4) Laboratory Tests Test 11/04/20 13:20 11/05/20 03:15 Magnesium Level 1.8 mg/dL (1.8-2.4) Troponin I Quantitative < 0.017 ng/mL (0.000-0.055) White Blood Count 6.4 x10^3/uL (4.0-11.0) Red Blood Count 4.34 x10^6/uL (3.50-5.40) Hemoglobin 13.1 g/dL (12.0-15.5) Hematocrit 38.1 % (36.0-47.0) Mean Corpuscular Volume 88 fL (79-100) Mean Corpuscular Hemoglobin 30 pg (25-35) Mean Corpuscular Hemoglobin Concent 34 g/dL (31-37) Red Cell Distribution Width 13.9 % (11.5-14.5) Platelet Count 232 x10^3/uL (140-400) Neutrophils (%) (Auto) 61 % (31-73) Lymphocytes (%) (Auto) 30 % (24-48) Monocytes (%) (Auto) 7 % (0-9) Eosinophils (%) (Auto) 1 % (0-3) Basophils (%) (Auto) 1 % (0-3) Neutrophils # (Auto) 3.9 x10^3/uL (1.8-7.7) Lymphocytes # (Auto) 1.9 x10^3/uL (1.0-4.8) Monocytes # (Auto) 0.5 x10^3/uL (0.0-1.1) Eosinophils # (Auto) 0.0 x10^3/uL (0.0-0.7) Basophils # (Auto) 0.1 x10^3/uL (0.0-0.2) Sodium Level 139 mmol/L (136-145) Potassium Level 2.9 mmol/L (3.5-5.1) Chloride Level 100 mmol/L (98-107) Carbon Dioxide Level 34 mmol/L (21-32) Anion Gap 5 (6-14) Blood Urea Nitrogen 16 mg/dL (7-20) Creatinine 1.0 mg/dL (0.6-1.0) Estimated GFR (Cockcroft-Gault) 54.7 Glucose Level 193 mg/dL (70-99) Calcium Level 8.1 mg/dL (8.5-10.1) Medications Current Medications Nitroglycerin (Nitrostat) 0.4 mg PRN Q5MIN PRN SL CP RATING > 1/10 Last administered on 11/04/20at 08:21; Start 11/04/20 at 07:30; Stop 11/05/20 at 07:30; Status DC Ondansetron HCl (Zofran) 4 mg PRN Q8HRS PRN IVP NAUSEA/VOMITING; Start 11/04/20 at 08:45; Stop 11/04/20 at 10:00; Status DC Morphine Sulfate (Morphine Sulfate) 4 mg PRN Q4HRS PRN IVP PAIN; Start 11/04/20 at 08:45; Stop 11/05/20 at 08:44; Status DC Acetaminophen (Tylenol) 650 mg PRN Q4HRS PRN PO FEVER > 100.3'F; Start 11/04/20 at 08:45; Stop 11/04/20 at 10:02; Status DC Nitroglycerin (Nitrostat) 0.4 mg PRN Q5MIN PRN SL CHEST PAIN; Start 11/04/20 at 08:45; Stop 11/05/20 at 08:44; Status DC Potassium Chloride (Klor-Con) 40 meq 1X ONCE PO Last administered on 11/04/20at 10:01; Start 11/04/20 at 10:00; Stop 11/04/20 at 10:02; Status DC Dicyclomine HCl (Bentyl) 10 mg PRN TID PRN PO stomach cramping; Start 11/04/20 at 09:45 Levothyroxine Sodium (Synthroid) 50 mcg DAILY06 PO Last administered on 11/05/20at 04:55; Start 11/04/20 at 10:30 Oxycodone/ Acetaminophen (Percocet 10/325) 1 tab PRN Q8HRS PRN PO PAIN Last administered on 11/05/20at 09:09; Start 11/04/20 at 09:45 Triamterene/HCTZ (Maxzide 37.5/ 25mg) 1 tab DAILY PO Last administered on 11/05/20at 09:09; Start 11/04/20 at 10:30 Pantoprazole Sodium (Protonix) 40 mg DAILYAC PO Last administered on 11/05/20at 04:55; Start 11/04/20 at 10:00 Atorvastatin Calcium (Lipitor) 10 mg QHS PO Last administered on 11/04/20at 20:55; Start 11/04/20 at 21:00 Pregabalin (Lyrica) 150 mg BID PO Last administered on 11/05/20at 09:09; Start 11/04/20 at 21:00 Ropinirole HCl (Requip) 0.5 mg QHS PO ; Start 11/04/20 at 21:00; Stop 11/04/20 at 18:09; Status DC Sertraline HCl (Zoloft) 100 mg DAILY PO Last administered on 11/05/20at 09:10; Start 11/04/20 at 10:30 Ondansetron HCl (Zofran) 4 mg PRN Q6HRS PRN IVP NAUSEA/VOMITING; Start 11/04/20 at 10:00 Al Hydroxide/Mg Hydroxide (Mylanta Plus Xs) 30 ml PRN Q3HRS PRN PO HEARTBURN / GAS; Start 11/04/20 at 10:00 Calcium Carbonate/ Glycine (Tums) 500 mg PRN Q3HRS PRN PO UPSET STOMACH; Start 11/04/20 at 10:00 Zolpidem Tartrate (Ambien) 5 mg PRN QHS PRN PO INSOMNIA, MAY REPEAT IN 1HR Last administered on 11/04/20at 23:41; Start 11/04/20 at 10:00 Acetaminophen (Tylenol) 650 mg PRN Q6HRS PRN PO Headaches, Temp > 101.5F; Sta rt 11/04/20 at 10:00 Magnesium Hydroxide (Milk Of Magnesia) 2,400 mg PRN Q12HR PRN PO CONSTIPATION; Start 11/04/20 at 10:00 Enoxaparin Sodium (Lovenox 40mg Syringe) 40 mg Q12HR SQ Last administered on 11/05/20at 09:10; Start 11/04/20 at 11:00 Furosemide (Lasix) 40 mg 1X ONCE IVP ; Start 11/04/20 at 15:15; Stop 11/04/20 at 15:27; Status DC Potassium Chloride (Klor-Con) 40 meq 1X ONCE PO ; Start 11/04/20 at 15:15; Stop 11/04/20 at 15:27; Status DC Iodixanol (Visipaque 320) 100 ml STK-MED ONCE .ROUTE ; Start 11/04/20 at 15:53; Stop 11/04/20 at 15:54; Status DC Lidocaine HCl (Xylocaine-Mpf 1% 2ml Vial) 2 ml STK-MED ONCE .ROUTE ; Start 11/04/20 at 15:54; Stop 11/04/20 at 15:54; Status DC Heparin Sodium/ Sodium Chloride 1,000 ml @ As Directed STK-MED ONCE .ROUTE ; Start 11/04/20 at 15:54; Stop 11/04/20 at 15:54; Status DC Fentanyl Citrate (Fentanyl 2ml Vial) 100 mcg STK-MED ONCE .ROUTE ; Start 11/04/20 at 16:03; Stop 11/04/20 at 16:03; Status DC Midazolam HCl (Versed) 2 mg STK-MED ONCE .ROUTE ; Start 11/04/20 at 16:03; Stop 11/04/20 at 16:03; Status DC Heparin Sodium (Porcine) (Heparin Sodium) 10,000 unit STK-MED ONCE .ROUTE ; St art 11/04/20 at 16:03; Stop 11/04/20 at 16:03; Status DC Verapamil HCl (Verapamil) 5 mg STK-MED ONCE .ROUTE ; Start 11/04/20 at 16:03; Stop 11/04/20 at 16:03; Status DC Nitroglycerin (Nitroglycerin) 200 mcg STK-MED ONCE .ROUTE ; Start 11/04/20 at 16:03; Stop 11/04/20 at 16:03; Status DC Midazolam HCl (Versed) 2 mg STK-MED ONCE .ROUTE ; Start 11/04/20 at 16:37; Stop 11/04/20 at 16:38; Status DC Nitroglycerin (Nitroglycerin) 200 mcg 1X ONCE IART Last administered on 11/04/20at 16:52; Start 11/04/20 at 16:45; Stop 11/04/20 at 16:48; Status DC Verapamil HCl (Verapamil) 2.5 mg 1X ONCE IART Last administered on 11/04/20at 16:52; Start 11/04/20 at 16:45; Stop 11/04/20 at 16:48; Status DC Heparin Sodium (Porcine) (Heparin Sodium) 2,500 unit 1X ONCE IART Last administered on 11/04/20at 16:56; Start 11/04/20 at 16:45; Stop 11/04/20 at 16:48; Status DC Heparin Sodium/ Sodium Chloride (HEPARIN for ARTERIAL LINE FLUSH) 1,000 unit 1X ONCE IART Last administered on 11/04/20at 16:51; Start 11/04/20 at 16:45; Stop 11/04/20 at 16:48; Status DC Heparin Sodium/ Sodium Chloride (HEPARIN for ARTERIAL LINE FLUSH) 1,000 unit 1X ONCE IART Last administered on 11/04/20at 16:51; Start 11/04/20 at 16:45; Stop 11/04/20 at 16:48; Status DC Midazolam HCl (Versed) 2 mg 1X ONCE IV Last administered on 11/04/20at 16:54; Start 11/04/20 at 16:45; Stop 11/04/20 at 16:48; Status DC Fentanyl Citrate (Fentanyl 2ml Vial) 100 mcg 1X ONCE IV Last administered on 11/04/20at 16:53; Start 11/04/20 at 16:45; Stop 11/04/20 at 16:48; Status DC Iodixanol (Visipaque 320) 100 ml 1X ONCE IART Last administered on 11/04/20at 16:53; Start 11/04/20 at 16:45; Stop 11/04/20 at 16:48; Status DC Lidocaine HCl (Xylocaine-Mpf 1% 2ml Vial) 2 ml 1X ONCE INJ Last administered on 11/04/20at 16:53; Start 11/04/20 at 16:45; Stop 11/04/20 at 16:48; Status DC Ropinirole HCl (Requip) 1 mg QHS PO Last administered on 11/04/20at 20:55; S tart 11/04/20 at 21:00 Info (FLU VACCINE SCREEN per RX) 1 each PRN 1X PRN MC SEE COMMENTS; Start 11/04/20 at 19:00; Status UNV Influenza Virus Vaccine Quadrival (Flulaval Quad [id number] Syringe) 0.5 ml ONCE ONCE VAX IM Last administered on 11/05/20at 05:03; Start 11/04/20 at 19:00; Stop 11/04/20 at 19:01; Status DC Potassium Chloride (Klor-Con) 40 meq 1X ONCE PO Last administered on 11/05/20at 04:55; Start 11/05/20 at 04:30; Stop 11/05/20 at 04:31; Status DC Active Scripts Active Macrobid 100 Mg Capsule (Nitrofurantoin Monohyd/M-Cryst) 100 Mg Capsule 1 Cap PO BID Synthroid (Levothyroxine Sodium) 50 Mcg Tablet 50 Mcg PO DAILY06 30 Days Actos (Pioglitazone Hcl) 15 Mg Tablet 45 Mg PO DAILY 30 Days Dicyclomine Hcl 10 Mg Capsule 10 Mg PO PRN TID PRN 30 Days Reported Ropinirole Hcl 1 Mg Tablet 1 Mg PO QHS Lyrica (Pregabalin) 150 Mg Capsule 1 Cap PO BID Biotin 10,000 Mcg Capsule 10,000 Mcg PO DAILY B-12 (Cyanocobalamin (Vitamin B-12)) 1,000 Mcg Tablet 1,000 Mcg PO DAILY Vitamin D2 (Ergocalciferol (Vitamin D2)) 50,000 Unit Capsule 1 Cap PO WEEKLY Omeprazole 20 Mg Capsule.dr 20 Mg PO BID Triamterene-Hctz 37.5-25 Mg Tb (Triamterene/Hydrochlorothiazid) 1 Each Tablet 1 Tab PO DAILY Metformin Hcl 1,000 Mg Tablet 1,000 Mg PO BIDWMEALS Pravastatin Sodium 40 Mg Tablet 1 Tab PO DAILY Zoloft (Sertraline Hcl) 100 Mg Tablet 1 Tab PO DAILY Oxycodone-Acetaminophen 10-325 (Oxycodone Hcl/Acetaminophen) 1 Each Tablet 1 Each PO PRN Q8HRS PRN Vitals/I & O Vital Sign - Last 24 Hours 11/04/20 11/04/20 11/04/20 11/04/20 10:50 11:20 11:24 11:50 Pulse 62 70 70 Resp 16 B/P (MAP) 131/57 (81) 131/55 (80) 121/70 (87) Pulse Ox 94 93 94 96 O2 Delivery Room Air Room Air Room Air Room Air 11/04/20 11/04/20 11/04/20 11/04/20 12:20 13:20 14:20 15:20 Pulse 72 74 70 75 Resp 19 B/P (MAP) 117/51 (73) 140/62 (88) 131/58 (82) 129/58 (81) Pulse Ox 94 95 93 94 O2 Delivery Room Air Room Air Room Air Room Air 11/04/20 11/04/20 11/04/20 11/04/20 16:52 16:53 17:02 17:15 Temp 97.5 97.5 Pulse 80 89 71 Resp 18 17 18 B/P (MAP) 176/67 136/60 (85) Pulse Ox 99 98 97 O2 Delivery Nasal Cannula Nasal Cannula Room Air O2 Flow Rate 2.0 2.0 11/04/20 11/04/20 11/04/20 11/04/20 18:05 18:12 19:40 19:40 Temp 97.6 97.6 Pulse 77 Resp 18 B/P (MAP) 138/60 (86) Pulse Ox 97 97 91 O2 Delivery Nasal Cannula Nasal Cannula Room Air Room Air O2 Flow Rate 2.0 2.0 11/04/20 11/04/20 11/04/20 11/05/20 20:55 21:25 22:58 02:52 Temp 98.5 97.6 98.5 97.6 Pulse 81 72 Resp 18 18 16 18 B/P (MAP) 167/69 (101) 130/60 (83) Pulse Ox 91 93 93 92 O2 Delivery Room Air Room Air Room Air Room Air O2 Flow Rate 2.0 2.0 11/05/20 11/05/20 11/05/20 07:00 09:09 09:39 Temp 97.5 97.5 Pulse 72 Resp 18 B/P (MAP) 132/62 (85) Pulse Ox 93 O2 Delivery Room Air Room Air Room Air Intake and Output 11/04/20 11/04/20 11/05/20 15:00 23:00 07:00 Intake Total 100 ml 600 ml Output Total 100 ml Balance 0 ml 600 ml Justicifation of Admission Dx: Justifications for Admission: Justification of Admission Dx: No NIKHIL NEWTON MD Nov 05, 2020 10:27
[2020-11-05 11:13] VITALS: BP 138/80
--- NOTE | 2020-11-05 13:00 | CARD ---
MR#: [id number] Date of Study: 11/04/2020 Ordering Physician: ALPESH CASIANO, Referring Physician: ALPESH CASIANO Tech: DAVE MEDRANO RT APPROVED REPORT Technologist: DAVE MEDRANO RT Nurse: Jaci Dumont RN Procedure(s) performed: FLOURO TIME: 2.0 MINUTES DOSE:22.08 Gycm2 CONTRAST: 31 CC'S VISIPAQUE MODERATE SEDATION: 50 MINUTES LHC, Coronary angiography [facility] Clinical Frailty Scale [facility] Clinical Frailty Scale: Moderately Frail Heart Failure Heart Failure: No CASE TECHNIQUE IV conscious sedation was used throughout procedure with appropriate monitoring and was performed in the presence of a registered nurse who was an independent trained observer other than the physician p erforming the procedure. During this case, Fluoroscopy and low osmolar contrast were used for imaging . Specimen(s) Removed: N/A Estimated Blood loss: 15 cc's. PROCEDURE NARRATIVE Clinical information: 69 y.o woman unstable angina. Informed consent: Written informed consent was obtained from the patient after adequate discussion of the risks and mónica efits of the procedure. Procedure details: ACCESS: The right wrist was prepped and draped in usual sterile fashion. Under 1% lidocaine local anesthesia a 6 [place] Terumo sheath was placed in the right radial artery via the Seldinger technique. DIAGNOSTIC ANGIOGRAPHY: Right and left coronary arteries were engaged with a 6 [place] TIG catheter. Diagnostic angiography i n multiple views were obtained. Next, a 6 [place] pigtail catheter was placed in the left ventricle a nd a LVEDP was measured. A pullback was performed. All catheters were exchanged over J-tip guidewir e. FINDINGS: ======= Aorta: 110/80 LVEDP: 15 mmHg Left ventriculogram: Deferred due to known normal EF. Coronary angiography: LM: Normal angiographic appearance. LAD: Normal angiographic appearance. LCx: Normal angiographic appearance. (Dominant) RCA: Normal angiographic appearance. CLOSURE: At case completion the right radial sheath was removed and a Terumo radial band was applied with 11 m L of air. Hemostasis was achieved. COMPLICATIONS: No acute complications noted Conclusion 1. Normal left sided filling pressures. 2. Normal angiographic appearance of the coronary arteries with a left dominant system. Recommendations Evaluation for non-cardiac causes of chest pain. Signed by : Galo Garcia, Electronically Approved : 11/05/2020 12:59:38
--- NOTE | 2020-11-05 13:48 | PDOC3 ---
Discharge Summary Date of Admission: Nov 04, 2020 Date of Discharge: Nov 05, 2020 Follow-Up: 3-5 days Admitting Diagnosis comment: complications none consults cardiology discharge dx Assessment/Plan Chest pain, ATYPICAL DM2 with hyperglycemia HTN GERD Hypothyroidism Fibromyalgia hypokalemia 2.9 po replacement today Plan: Consultation placed to cardiology Troponin <0.017; will continue to trend. Symptoms possibly secondary to vascular congestion seen on chest x-ray; this may just require diuretic adjustment. Morphine, nitroglycerin as needed Lipid panel pending Recent echocardiogram in August 2020 showed normal LV systolic function, with ejection fraction 50%, no significant aortic valvular stenosis. Currently not inclined to repeat echocardiogram, unless cardiology feels otherwise. Basal/prandial insulin Telemetry Resume home medications FEN - Cardiac diet PPX - Heparin FULL CODE Dispo - inpatient for above Patient names her (Toni Ritter) as surrogate decision-maker replace k d/c planning 32 min Justifications for Admission Justifications for Admission Other Justification History of Present Illness History of Present Illness Identification/Chief Complaint Chief Complaint Chest pain Source Source: Patient History of Present Illness History of Present Illness Patient is a 69-year-old female with past medical history third-degree heart block s/p pacemaker, DM2, HTN, HLD, GERD, hypothyroidism, who presents to the ED with complaints of chest pain that started 2 AM this morning. She reports intermittent chest pain that feels more like pressure, 7/10. She reports some associated shortness of breath and weakness. She denies any fever, nausea, or vomiting. She normally gets around using a scooter secondary to chronic weakness and history of falls, however this morning she is weaker than baseline. Labs in the ED showed troponin <0.017, CBG 215, BNP 150, potassium 3.3. EKG with no ST changes. Chest x-ray showing pulmonary vascular congestion. She states she is on a diuretic but cannot recall the name. States her program medical director is Dr. Benitez. She has been vaccinated against COVID-19. Will admit patient for further medical management. Past Medical History Cardiovascular: HTN, Hyperlipidemia, Other (Third-degree heart block s/p pacemaker) Pulmonary: Pneumonia CENTRAL NERVOUS SYSTEM: Periperal neuropathy, TIA GI: GERD Heme/Onc: No pertinent hx Hepatobiliary: No pertinent hx Psych: Anxiety, Depression Musculoskeletal: Osteoarthritis Rheumatologic: Fibromyalgia Infectious disease: No pertinent hx Renal/: UTI Endocrine: Diabetes, Hypothyroidism Past Surgical History Past Surgical History: Pacemaker, Cholecystectomy, Hernia Repair, Other Family History Family History: Cancer, Diabetes, Hypertension Social History Smoke: No ALCOHOL: none Drugs: None Current Problem List Problem List Problems Medical Problems: (1) Chest pain Status: Acute Current Medications Current Medications Current Medications Nitroglycerin (Nitrostat) 0.4 mg PRN Q5MIN PRN SL CP RATING > 1/10 Last administered on 11/04/20at 08:21; Start 11/04/20 at 07:30; Stop 11/05/20 at 07:29 Ondansetron HCl (Zofran) 4 mg PRN Q8HRS PRN IVP NAUSEA/VOMITING; Start 11/04/20 at 08:45; Stop 11/05/20 at 08:44 Morphine Sulfate (Morphine Sulfate) 4 mg PRN Q4HRS PRN IVP PAIN; Start 11/04/20 at 08:45; Stop 11/05/20 at 08:44 Acetaminophen (Tylenol) 650 mg PRN Q4HRS PRN PO FEVER > 100.3'F; Start 11/04/20 at 08:45; Stop 11/05/20 at 08:44 Nitroglycerin (Nitrostat) 0.4 mg PRN Q5MIN PRN SL CHEST PAIN; Start 11/04/20 at 08:45; Stop 11/05/20 at 08:44 Active Scripts Active Macrobid 100 Mg Capsule (Nitrofurantoin Monohyd/M-Cryst) 100 Mg Capsule 1 Cap PO BID Synthroid (Levothyroxine Sodium) 50 Mcg Tablet 50 Mcg PO DAILY06 30 Days Actos (Pioglitazone Hcl) 15 Mg Tablet 45 Mg PO DAILY 30 Days Dicyclomine Hcl 10 Mg Capsule 10 Mg PO PRN TID PRN 30 Days Reported Requip (Ropinirole Hcl) 0.5 Mg Tablet 1 Tab PO QHS Lyrica (Pregabalin) 150 Mg Capsule 1 Cap PO BID Biotin 10,000 Mcg Capsule 10,000 Mcg PO DAILY B-12 (Cyanocobalamin (Vitamin B-12)) 1,000 Mcg Tablet 1,000 Mcg PO DAILY Vitamin D2 (Ergocalciferol (Vitamin D2)) 50,000 Unit Capsule 1 Cap PO WEEKLY Omeprazole 20 Mg Capsule.dr 20 Mg PO BID Triamterene-Hctz 37.5-25 Mg Tb (Triamterene/Hydrochlorothiazid) 1 Each Tablet 1 Tab PO DAILY Metformin Hcl 1,000 Mg Tablet 1,000 Mg PO BIDWMEALS Pravastatin Sodium 40 Mg Tablet 1 Tab PO DAILY Zoloft (Sertraline Hcl) 100 Mg Tablet 1 Tab PO DAILY Oxycodone-Acetaminophen 10-325 (Oxycodone Hcl/Acetaminophen) 1 Each Tablet 1 Each PO PRN Q8HRS PRN Allergies Allergies: Coded Allergies: Niacin Preparations (Verified Allergy, Intermediate, 02/25/19) oxaprozin (Verified Allergy, Intermediate, 02/25/19) ROS Review of System GENERAL: No history of weight change, weakness or fevers. SKIN: No bruising, hair changes or rashes. EYES: No blurred, double or loss of vision. NOSE AND THROAT: No history of nosebleeds, hoarseness or sore throat. HEART: Chest pain. Denies palpitations. LUNGS: Shortness of breath. Denies cough, hemoptysis, or wheezing. GASTROINTESTINAL: Denies nausea, vomiting, abdominal pain. GENITOURINARY: Denies dysuria, frequency, urgency, hematuria. NEUROLOGIC: Denies history of numbness, tingling, tremor or weakness. PSYCHIATRIC: Denies anxiety, denies depression. ENDOCRINE: No history of heat or cold intolerance, polyuria or polydipsia. EXTREMITIES: Denies muscle weakness, joint pain, pain on walking or stiffness. ACCESS: The right wrist was prepped and draped in usual sterile fashion. Under 1% lidocaine local anesthesia a 6 [place] Terumo sheath was placed in the right radial artery via the Seldinger technique. DIAGNOSTIC ANGIOGRAPHY: Right and left coronary arteries were engaged with a 6 Angolan TIG catheter. Diagnostic angiography in multiple views were obtained. Next, a 6 Angolan pigtail catheter was placed in the left ventricle and a LVEDP was measured. A pullback was performed. All catheters were exchanged over J-tip guidewire. FINDINGS: ======= Aorta: 110/80 LVEDP: 15 mmHg Left ventriculogram: Deferred due to known normal EF. Coronary angiography: LM: Normal angiographic appearance. LAD: Normal angiographic appearance. LCx: Normal angiographic appearance. (Dominant) RCA: Normal angiographic appearance. CLOSURE: At case completion the right radial sheath was removed and a Terumo radial band was applied with 11 mL of air. Hemostasis was achieved. COMPLICATIONS: No acute complications noted Conclusion 1. Normal left sided filling pressures. 2. Normal angiographic appearance of the coronary arteries with a left dominant system. Recommendations Evaluation for non-cardiac causes of chest pain. Signed by : Randal Garcia, Electronically Approved : 11/05/2020 12:59:38 DICTATED and SIGNED BY: RANDAL GARCIA MD DATE: 11/04/20 [id number] 0 Vitals Vitals Vital Signs on room air Date Time Temp Pulse Resp B/P (MAP) Pulse Ox O2 Delivery O2 Flow Rate FiO2 11/05/20 09:39 Room Air 11/05/20 07:00 97.5 72 18 132/62 (85) 93 97.5 11/04/20 21:25 2.0 Physical Exam General: Alert, Oriented X3, Cooperative, No acute distress Heart: Regular rate (paced), Normal S1, Normal S2, No murmurs Lungs: Clear Abdomen: Normal bowel sounds, Soft, No tenderness, Other (obese) Extremities: No cyanosis, No edema Skin: No rashes, No breakdown, No significant lesion FINAL DIAGNOSIS Problems Medical Problems: (1) Chest pain Status: Acute Brief Hospital Course Ms. Ritter is a 69 old [sex] who presented with [chest pain ] CONDITION AT DISCHARGE: Improved Discharge Medications Current Medications Nitroglycerin (Nitrostat) 0.4 mg PRN Q5MIN PRN SL CP RATING > 1/10 Last administered on 11/04/20at 08:21; Start 11/04/20 at 07:30; Stop 11/05/20 at 07:30; Status DC Ondansetron HCl (Zofran) 4 mg PRN Q8HRS PRN IVP NAUSEA/VOMITING; Start 11/04/20 at 08:45; Stop 11/04/20 at 10:00; Status DC Morphine Sulfate (Morphine Sulfate) 4 mg PRN Q4HRS PRN IVP PAIN; Start 11/04/20 at 08:45; Stop 11/05/20 at 08:44; Status DC Acetaminophen (Tylenol) 650 mg PRN Q4HRS PRN PO FEVER > 100.3'F; Start 11/04/20 at 08:45; Stop 11/04/20 at 10:02; Status DC Nitroglycerin (Nitrostat) 0.4 mg PRN Q5MIN PRN SL CHEST PAIN; Start 11/04/20 at 08:45; Stop 11/05/20 at 08:44; Status DC Potassium Chloride (Klor-Con) 40 meq 1X ONCE PO Last administered on 11/04/20at 10:01; Start 11/04/20 at 10:00; Stop 11/04/20 at 10:02; Status DC Dicyclomine HCl (Bentyl) 10 mg PRN TID PRN PO stomach cramping; Start 11/04/20 at 09:45 Levothyroxine Sodium (Synthroid) 50 mcg DAILY06 PO Last administered on 11/05/20at 04:55; Start 11/04/20 at 10:30 Oxycodone/ Acetaminophen (Percocet 10/325) 1 tab PRN Q8HRS PRN PO PAIN Last administered on 11/05/20at 09:09; Start 11/04/20 at 09:45 Triamterene/HCTZ (Maxzide 37.5/ 25mg) 1 tab DAILY PO Last administered on 11/05/20at 09:09; Start 11/04/20 at 10:30 Pantoprazole Sodium (Protonix) 40 mg DAILYAC PO Last administered on 11/05/20at 04:55; Start 11/04/20 at 10:00 Atorvastatin Calcium (Lipitor) 10 mg QHS PO Last administered on 11/04/20at 20:55; Start 11/04/20 at 21:00 Pregabalin (Lyrica) 150 mg BID PO Last administered on 11/05/20at 09:09; Start 11/04/20 at 21:00 Ropinirole HCl (Requip) 0.5 mg QHS PO ; Start 11/04/20 at 21:00; Stop 11/04/20 at 18:09; Status DC Sertraline HCl (Zoloft) 100 mg DAILY PO Last administered on 11/05/20at 09:10; Start 11/04/20 at 10:30 Ondansetron HCl (Zofran) 4 mg PRN Q6HRS PRN IVP NAUSEA/VOMITING; Start 11/04/20 at 10:00 Al Hydroxide/Mg Hydroxide (Mylanta Plus Xs) 30 ml PRN Q3HRS PRN PO HEARTBURN / GAS; Start 11/04/20 at 10:00 Calcium Carbonate/ Glycine (Tums) 500 mg PRN Q3HRS PRN PO UPSET STOMACH; Start 11/04/20 at 10:00 Zolpidem Tartrate (Ambien) 5 mg PRN QHS PRN PO INSOMNIA, MAY REPEAT IN 1HR Last administered on 11/04/20at 23:41; Start 11/04/20 at 10:00 Acetaminophen (Tylenol) 650 mg PRN Q6HRS PRN PO Headaches, Temp > 101.5F; Start 11/04/20 at 10:00 Magnesium Hydroxide (Milk Of Magnesia) 2,400 mg PRN Q12HR PRN PO CONSTIPATION; Start 11/04/20 at 10:00 Enoxaparin Sodium (Lovenox 40mg Syringe) 40 mg Q12HR SQ Last administered on 11/05/20at 09:10; Start 11/04/20 at 11:00 Furosemide (Lasix) 40 mg 1X ONCE IVP ; Start 11/04/20 at 15:15; Stop 11/04/20 at 15:27; Status DC Potassium Chloride (Klor-Con) 40 meq 1X ONCE PO ; Start 11/04/20 at 15:15; Stop 11/04/20 at 15:27; Status DC Iodixanol (Visipaque 320) 100 ml STK-MED ONCE .ROUTE ; Start 11/04/20 at 15:53; Stop 11/04/20 at 15:54; Status DC Lidocaine HCl (Xylocaine-Mpf 1% 2ml Vial) 2 ml STK-MED ONCE .ROUTE ; Start 11/04/20 at 15:54; Stop 11/04/20 at 15:54; Status DC Heparin Sodium/ Sodium Chloride 1,000 ml @ As Directed STK-MED ONCE .ROUTE ; Start 11/04/20 at 15:54; Stop 11/04/20 at 15:54; Status DC Fentanyl Citrate (Fentanyl 2ml Vial) 100 mcg STK-MED ONCE .ROUTE ; Start 10/19 09/07 at 16:03; Stop 11/04/20 at 16:03; Status DC Midazolam HCl (Versed) 2 mg STK-MED ONCE .ROUTE ; Start 11/04/20 at 16:03; Stop 11/04/20 at 16:03; Status DC Heparin Sodium (Porcine) (Heparin Sodium) 10,000 unit STK-MED ONCE .ROUTE ; Start 11/04/20 at 16:03; Stop 11/04/20 at 16:03; Status DC Verapamil HCl (Verapamil) 5 mg STK-MED ONCE .ROUTE ; Start 11/04/20 at 16:03; Stop 11/04/20 at 16:03; Status DC Nitroglycerin (Nitroglycerin) 200 mcg STK-MED ONCE .ROUTE ; Start 11/04/20 at 16:03; Stop 11/04/20 at 16:03; Status DC Midazolam HCl (Versed) 2 mg STK-MED ONCE .ROUTE ; Start 11/04/20 at 16:37; Stop 11/04/20 at 16:38; Status DC Nitroglycerin (Nitroglycerin) 200 mcg 1X ONCE IART Last administered on 11/04/20at 16:52; Start 11/04/20 at 16:45; Stop 11/04/20 at 16:48; Status DC Verapamil HCl (Verapamil) 2.5 mg 1X ONCE IART Last administered on 11/04/20at 16:52; Start 11/04/20 at 16:45; Stop 11/04/20 at 16:48; Status DC Heparin Sodium (Porcine) (Heparin Sodium) 2,500 unit 1X ONCE IART Last administered on 11/04/20at 16:56; Start 11/04/20 at 16:45; Stop 11/04/20 at 16:48; Status DC Heparin Sodium/ Sodium Chloride (HEPARIN for ARTERIAL LINE FLUSH) 1,000 unit 1X ONCE IART Last administered on 11/04/20at 16:51; Start 11/04/20 at 16:45; Stop 11/04/20 at 16:48; Status DC Heparin Sodium/ Sodium Chloride (HEPARIN for ARTERIAL LINE FLUSH) 1,000 unit 1X ONCE IART Last administered on 11/04/20at 16:51; Start 11/04/20 at 16:45; Stop 11/04/20 at 16:48; Status DC Midazolam HCl (Versed) 2 mg 1X ONCE IV Last administered on 11/04/20at 16:54; Start 11/04/20 at 16:45; Stop 11/04/20 at 16:48; Status DC Fentanyl Citrate (Fentanyl 2ml Vial) 100 mcg 1X ONCE IV Last administered on 11/04/20at 16:53; Start 11/04/20 at 16:45; Stop 11/04/20 at 16:48; Status DC Iodixanol (Visipaque 320) 100 ml 1X ONCE IART Last administered on 11/04/20at 16:53; Start 11/04/20 at 16:45; Stop 11/04/20 at 16:48; Status DC Lidocaine HCl (Xylocaine-Mpf 1% 2ml Vial) 2 ml 1X ONCE INJ Last administered on 11/04/20at 16:53; Start 11/04/20 at 16:45; Stop 11/04/20 at 16:48; Status DC Ropinirole HCl (Requip) 1 mg QHS PO Last administered on 11/04/20at 20:55; Start 11/04/20 at 21:00 Info (FLU VACCINE SCREEN per RX) 1 each PRN 1X PRN MC SEE COMMENTS; Start 11/04/20 at 19:00; Status UNV Influenza Virus Vaccine Quadrival (Flulaval Quad [id number] Syringe) 0.5 ml ONCE ONCE VAX IM Last administered on 11/05/20at 05:03; Start 11/04/20 at 19:00; Stop 11/04/20 at 19:01; Status DC Potassium Chloride (Klor-Con) 40 meq 1X ONCE PO Last administered on 11/05/20at 04:55; Start 11/05/20 at 04:30; Stop 11/05/20 at 04:31; Status DC Active Scripts Active Macrobid 100 Mg Capsule (Nitrofurantoin Monohyd/M-Cryst) 100 Mg Capsule 1 Cap PO BID Synthroid (Levothyroxine Sodium) 50 Mcg Tablet 50 Mcg PO DAILY06 30 Days Actos (Pioglitazone Hcl) 15 Mg Tablet 45 Mg PO DAILY 30 Days Dicyclomine Hcl 10 Mg Capsule 10 Mg PO PRN TID PRN 30 Days Reported Ropinirole Hcl 1 Mg Tablet 1 Mg PO QHS Lyrica (Pregabalin) 150 Mg Capsule 1 Cap PO BID Biotin 10,000 Mcg Capsule 10,000 Mcg PO DAILY B-12 (Cyanocobalamin (Vitamin B-12)) 1,000 Mcg Tablet 1,000 Mcg PO DAILY Vitamin D2 (Ergocalciferol (Vitamin D2)) 50,000 Unit Capsule 1 Cap PO WEEKLY Omeprazole 20 Mg Capsule.dr 20 Mg PO BID Triamterene-Hctz 37.5-25 Mg Tb (Triamterene/Hydrochlorothiazid) 1 Each Tablet 1 Tab PO DAILY Metformin Hcl 1,000 Mg Tablet 1,000 Mg PO BIDWMEALS Pravastatin Sodium 40 Mg Tablet 1 Tab PO DAILY Zoloft (Sertraline Hcl) 100 Mg Tablet 1 Tab PO DAILY Oxycodone-Acetaminophen 10-325 (Oxycodone Hcl/Acetaminophen) 1 Each Tablet 1 Each PO PRN Q8HRS PRN Vital Signs Vital Signs Date Time Temp Pulse Resp B/P (MAP) Pulse Ox O2 Delivery O2 Flow Rate FiO2 11/05/20 11:13 97.6 80 18 138/80 (99) 91 Room Air 97.6 11/04/20 21:25 2.0 Labs Laboratory Tests Test 11/04/20 07:20 11/04/20 10:26 11/04/20 13:20 11/05/20 03:15 White Blood Count 7.2 x10^3/uL (4.0-11.0) 6.4 x10^3/uL (4.0-11.0) Red Blood Count 4.80 x10^6/uL (3.50-5.40) 4.34 x10^6/uL (3.50-5.40) Hemoglobin 14.5 g/dL (12.0-15.5) 13.1 g/dL (12.0-15.5) Hematocrit 41.7 % (36.0-47.0) 38.1 % (36.0-47.0) Mean Corpuscular Volume 87 fL (79-100) 88 fL (79-100) Mean Corpuscular Hemoglobin 30 pg (25-35) 30 pg (25-35) Mean Corpuscular Hemoglobin Concent 35 g/dL (31-37) 34 g/dL (31-37) Red Cell Distribution Width 13.8 % (11.5-14.5) 13.9 % (11.5-14.5) Platelet Count 264 x10^3/uL (140-400) 232 x10^3/uL (140-400) Neutrophils (%) (Auto) 67 % (31-73) 61 % (31-73) Lymphocytes (%) (Auto) 25 % (24-48) 30 % (24-48) Monocytes (%) (Auto) 6 % (0-9) 7 % (0-9) Eosinophils (%) (Auto) 1 % (0-3) 1 % (0-3) Basophils (%) (Auto) 1 % (0-3) 1 % (0-3) Neutrophils # (Auto) 4.8 x10^3/uL (1.8-7.7) 3.9 x10^3/uL (1.8-7.7) Lymphocytes # (Auto) 1.8 x10^3/uL (1.0-4.8) 1.9 x10^3/uL (1.0-4.8) Monocytes # (Auto) 0.4 x10^3/uL (0.0-1.1) 0.5 x10^3/uL (0.0-1.1) Eosinophils # (Auto) 0.0 x10^3/uL (0.0-0.7) 0.0 x10^3/uL (0.0-0.7) Basophils # (Auto) 0.1 x10^3/uL (0.0-0.2) 0.1 x10^3/uL (0.0-0.2) Sodium Level 137 mmol/L (136-145) 139 mmol/L (136-145) Potassium Level 3.3 mmol/L (3.5-5.1) 2.9 mmol/L (3.5-5.1) Chloride Level 97 mmol/L (98-107) 100 mmol/L (98-107) Carbon Dioxide Level 33 mmol/L (21-32) 34 mmol/L (21-32) Anion Gap 7 (6-14) 5 (6-14) Blood Urea Nitrogen 15 mg/dL (7-20) 16 mg/dL (7-20) Creatinine 1.0 mg/dL (0.6-1.0) 1.0 mg/dL (0.6-1.0) Estimated GFR (Cockcroft-Gault) 54.7 54.7 Glucose Level 215 mg/dL (70-99) 193 mg/dL (70-99) Calcium Level 9.1 mg/dL (8.5-10.1) 8.1 mg/dL (8.5-10.1) Troponin I Quantitative < 0.017 ng/mL (0.000-0.055) < 0.017 ng/mL (0.000-0.055) < 0.017 ng/mL (0.000-0.055) DB-Fdm-P-Type Natriuretic Peptide 150 pg/mL (0-124) Triglycerides Level 225 mg/dL (0-150) Cholesterol Level 157 mg/dL (0-200) LDL Cholesterol, Calculated 73 mg/dL (0-100) VLDL Cholesterol, Calculated 45 mg/dL (0-40) Non-HDL Cholesterol Calculated 118 mg/dL (0-129) HDL Cholesterol 39 mg/dL (40-60) Cholesterol/HDL Ratio 4.0 Magnesium Level 1.8 mg/dL (1.8-2.4) Laboratory Tests Test 11/05/20 03:15 White Blood Count 6.4 x10^3/uL (4.0-11.0) Red Blood Count 4.34 x10^6/uL (3.50-5.40) Hemoglobin 13.1 g/dL (12.0-15.5) Hematocrit 38.1 % (36.0-47.0) Mean Corpuscular Volume 88 fL (79-100) Mean Corpuscular Hemoglobin 30 pg (25-35) Mean Corpuscular Hemoglobin Concent 34 g/dL (31-37) Red Cell Distribution Width 13.9 % (11.5-14.5) Platelet Count 232 x10^3/uL (140-400) Neutrophils (%) (Auto) 61 % (31-73) Lymphocytes (%) (Auto) 30 % (24-48) Monocytes (%) (Auto) 7 % (0-9) Eosinophils (%) (Auto) 1 % (0-3) Basophils (%) (Auto) 1 % (0-3) Neutrophils # (Auto) 3.9 x10^3/uL (1.8-7.7) Lymphocytes # (Auto) 1.9 x10^3/uL (1.0-4.8) Monocytes # (Auto) 0.5 x10^3/uL (0.0-1.1) Eosinophils # (Auto) 0.0 x10^3/uL (0.0-0.7) Basophils # (Auto) 0.1 x10^3/uL (0.0-0.2) Sodium Level 139 mmol/L (136-145) Potassium Level 2.9 mmol/L (3.5-5.1) Chloride Level 100 mmol/L (98-107) Carbon Dioxide Level 34 mmol/L (21-32) Anion Gap 5 (6-14) Blood Urea Nitrogen 16 mg/dL (7-20) Creatinine 1.0 mg/dL (0.6-1.0) Estimated GFR (Cockcroft-Gault) 54.7 Glucose Level 193 mg/dL (70-99) Calcium Level 8.1 mg/dL (8.5-10.1) Allergies Allergies Coded Allergies Type Severity Reaction Last Updated Verified Niacin Preparations Allergy Intermediate 02/25/19 Yes oxaprozin Allergy Intermediate 02/25/19 Yes Disposition/Orders: D/C to Home Justicifation of Admission Dx: Justifications for Admission: Justification of Admission Dx: No NIKHIL NEWTON MD Nov 05, 2020 13:48
--- NOTE | 2020-11-05 13:51 | DISCH ---
DISCHARGE INSTRUCTIONS Condition on Discharge Condition on Discharge: Stable Activity After Discharge Activity Instructions for Disc: Activity as tolerated Bathing Instructions: No Tub Bath until see Lifting Instructions after Dis: No heavy lifting Exercise Instruction after Dis: Walk 10 min, 3 x per day Driving Instructions after Dis: Do not drive today Weight Bearing Status after Di: As tolerated Diet after Discharge Diet after Discharge: Cardiac, Diabetic No Calorie Level Liquid Texture: Thin Liquid Wound Incision Care Wound/Incision Care: Reinforce dressing PRN Checks after Discharge Checks after discharge: Check blood press - daily Contacting the DRAndrés after DC Call your doctor for: If your condition worsens Follow-Up Follow up with: see your pcp in one week Treatment/Equipment after DC Adaptive Equipment Issued: None NIKHIL NEWTON MD Nov 05, 2020 13:51
--- NOTE | 2020-11-05 14:10 | PDOC ---
Provider Note Date of Service: DATE: 11/05/20 TIME: 14:10 Provider Note Coronary angiogram did not reveal any significant pathology. She has noncardiac chest pain. Okay to DC from cardiac standpoint. Justifications for Admission Other Justification RANDAL LIVE MD Nov 05, 2020 14:10
[2020-11-05 15:08] VITALS: BP 136/67
--- NOTE | 2020-11-05 15:53 | NUR ---
Discharge Note: FRIEDA BRIZUELA [facility] Discharge instructions and discharge home medications reviewed with Patient and a copy given. All questions have been answered and understanding verbalized. The following instructions and handouts were given: DISCHARGE INSTRUCTIONS, FOLLOW UP APPOINTMENTS, POST CATH EDUCATION Discontinued lines and drains: Peripheral IV intact. Patient discharged to Home or Self Care withSpousevia Wheelchair
== END 2020-11-05 18:02 | disposition home or self-care (01) | DRG 286 ==
LOC: ER 07:10 → ED HOLD 07:26 → 6 SOUTH 08:53
PROVIDERS: ADMIT Family Medicine; ATTEND Family Medicine
PROC: 4A023N7 Measurement of Cardiac Sampling and Pressure, Left Heart, Percutaneous Approach (ICD-10-PCS; principal; 2020-11-05)
PROC: B211YZZ Fluoroscopy of Multiple Coronary Arteries using Other Contrast (ICD-10-PCS; 2020-11-05)
DX: R07.89 Other chest pain (principal); I50.33 Acute on chronic diastolic (congestive) heart failure; Z68.42 Body mass index [BMI] 45.0-49.9, adult; I11.0 Hypertensive heart disease with heart failure; E03.9 Hypothyroidism, unspecified; E11.65 Type 2 diabetes mellitus with hyperglycemia; E66.01 Morbid (severe) obesity due to excess calories; E78.00 Pure hypercholesterolemia, unspecified; E78.5 Hyperlipidemia, unspecified; E87.6 Hypokalemia; G89.29 Other chronic pain; K21.9 Gastro-esophageal reflux disease without esophagitis; M79.7 Fibromyalgia; Z79.84 Long term (current) use of oral hypoglycemic drugs; Z82.49 Family history of ischemic heart disease and other diseases of the circulatory system; Z83.3 Family history of diabetes mellitus; Z86.73 Personal history of transient ischemic attack (TIA), and cerebral infarction without residual deficits; Z91.81 History of falling; Z95.0 Presence of cardiac pacemaker; E66.9 Obesity, unspecified; F32.9 Major depressive disorder, single episode, unspecified; F41.9 Anxiety disorder, unspecified; M19.90 Unspecified osteoarthritis, unspecified site; Z88.8 Allergy status to other drugs, medicaments and biological substances; G62.9 Polyneuropathy, unspecified
CPT/HCPCS: 36415; 71045; 80048; 80061; 83735; 83880; 84484; 85025; 90471; 90686; 93458; 99152; 99153; C1769; C1894; J1644; J1650; J2250; J3010; J3490; Q9967; 99285-25; G0378